=== PATIENT | male | born 1940 | race Caucasian/White ===

== ENCOUNTER 2017-07-01 21:36 | Inpatient (IN) | payer OTHER ==
[~2017-07-01] VITALS: Ht 177.8 cm; Wt 108.9 kg
--- NOTE | ~2017-07-01 | 2DMMODE ---
[facility] [address] [place] [address] 2 D/M-MODE ECHOCARDIOGRAM Name: NERY SHERIFF Anabell Room #: 315-P [facility] IN [facility]#: [id number] Admission: 07/02/17 Attend Phys: Benigno Santos MD Discharge: Date of : 38 Date of Service: 07/03/17 [facility] Report #: [id number] THIS REPORT FOR: //name// APPROVED REPORT Study performed: 07/03/2017 09:40:05 EXAM: Comprehensive 2D, Doppler, and color-flow Echocardiogram Patient Location: Bedside Room #: 315 Status: routine BSA: 2.21 BP: 173/88 mmHg Rhythm: Atrial Fibrillation Other Information Study Quality: Fair Indications Congestive Heart Failure COPD Atrial Fibrillation Hypertension/HDD HLP. 2D Dimensions LVEF(%): 56.77 (>50%) IVSd: 9.83 (7-11mm) LVOT Diam: 22.37 (18-24mm) LVDd: 43.27 mm PWd: 9.83 (7-11mm) Ascending Ao: 30.69 (22-36mm) LVDs: 30.50 (25-40mm) Aortic Root: 34.93 mm IVC: 29.00 mm Mae's LVEF: 56.77 % Aortic Valve AoV Peak Sukhjinder.: 1.05 m/s AO Peak Gr.: 4.41 mmHg Pulmonary Valve PV Peak Sukhjinder.: 0.81 m/s PV Peak Gr.: 2.62 mmHg Tricuspid Valve TR Peak Sukhjinder.: 3.99 m/s RAP Estimate: 15.00 mmHg TR Peak Gr.: 63.71 mmHg [facility] [address] [place] [address] 2 D/M-MODE ECHOCARDIOGRAM Name: NERY SHERIFF Room #: 315-P ADM IN [facility]#: [id number] Admission: 07/02/17 Attend Phys: Benigno Santos MD Discharge: Date of : 39 Date of Service: 07/03/17 1400 Report #: [id number] Pressure: 79.00 mmHg Left Ventricle The left ventricle is normal size. Flattened septum consistent with right ventricular pressure overload. There is normal left ventricular wall thickness. The left ventricular systolic function is normal. The left ventricular ejection fraction is within the normal range. LVEF is 55-60%. This study is not technically sufficient to allow evaluation of the LV diastolic function due to atrial fibrillation. Right Ventricle Right ventricle is dilated. Right ventricle is hypokinetic. Atria Left atrium is dilated. Right atrium is dilated. Aortic Valve The aortic valve is normal in structure. Aortic valve is calcified. No aortic regurgitation is present. There is no aortic valvular stenosis. Mitral Valve The mitral valve is normal in structure. There is mitral annular calcification. Mild mitral regurgitation. No evidence of mitral valve stenosis. Tricuspid Valve The tricuspid valve is normal in structure. There is no tricuspid valve stenosis. Mild to moderate tricuspid regurgitation. Severe pulmonary hypertension. Pulmonic Valve The pulmonary valve is normal in structure. There is no pulmonic valvular regurgitation. Great Vessels The aortic root is normal in size. The inferior vena cava is dilated with no inspiratory collapse. <Conclusion> The left ventricle is normal size. The left ventricular systolic function is normal. Right ventricle is dilated. Left atrium is dilated. [facility] [place] [address] [address] 2 D/M-MODE ECHOCARDIOGRAM Name: NERY SHERIFF Room #: 315-P ADM IN M.R.#: [id number] Admission: 07/02/17 Attend Phys: Benigno Santos MD Discharge: Date of : 39 Date of Service: 07/03/17 1400 Report #: [id number] Right atrium is dilated. There is no aortic valvular stenosis. Mild mitral regurgitation. Mild to moderate tricuspid regurgitation. Severe pulmonary hypertension. <ELECTRONICALLY SIGNED> By: Solomon Love MD 07/03/171399 99 99 Solomon Love MD /INF
--- NOTE | ~2017-07-01 | HC ---
[facility] [place] [address] CONSULTATION Name: NERY SHERIFF Room #: 315-P [facility] IN ..#: [id number] Admission: 07/02/17 Attend Phys: Benigno Santos MD Discharge: 07/10/17 Date of : 39 Report #: [id number] THIS REPORT FOR: //name// CC: Kamar Santos DATE OF SERVICE: 07/05/2017 NEPHROLOGY CONSULTATION ATTENDING PHYSICIAN: Dr. Gramajo REASON FOR CONSULTATION: Elevated creatinine. HISTORY OF PRESENT ILLNESS: Difficult patient, 77-year-old gentleman, who presented with shortness of breath, weakness and generalized pain, difficulty getting around. He was initially felt to have dehydration at the time of admission by the nurse practitioner. The attending physician felt on the other hand that he had congestive heart failure and fluid overload. He was initially treated with diuretics, also had a CAT scan with IV contrast dye. He did not diurese much, but after the contrast dye, his creatinine has risen from 1.3 up to 2.4. There is no prior knowledge of renal disease, although he did have an asymptomatic right renal arterial stent placed 9 years ago. PAST MEDICAL HISTORY: He has had previous coronary bypass, peripheral arterial disease and hypertension. He has had several lower extremity arterial vascular stents placed as well as having history of atrial fibrillation. MEDICATIONS: At time of admission included Uloric 80 mg daily, gabapentin 300 mg t.i.d., atorvastatin 40 mg daily, Pradaxa 75 mg b.i.d., calcium with vitamin D, vitamin B12, iron, aspirin 81 mg daily, fish oil, Bystolic 5 mg daily, potassium and torsemide 40 mg daily. FAMILY HISTORY: Noncontributory. SOCIAL HISTORY: Former smoker. Lives with significant other. REVIEW OF SYSTEMS: GENERAL: He has been feeling poorly. EYES: His vision is okay. ENT: Hearing okay. Swallows okay. Denies mouth ulcers. ENDOCRINE: No diabetes. RESPIRATORY: He does get very easily short winded. CARDIAC: No recent angina. He does have recurrent atrial fibrillation. GASTROINTESTINAL: Appetite is fair. [facility] [address] [place] [address] CONSULTATION Name: NERY SHERIFF Room #: 315-P [facility] IN [facility].#: [id number] Admission: 07/02/17 Attend Phys: Benigno Santos MD Discharge: 07/10/17 Date of : 39 Report #: [id number] GENITOURINARY: Has not had trouble with his stream. He has got Marroquin in now. NEUROLOGIC: Just generalized weakness. PHYSICAL EXAMINATION: GENERAL: This is a chronically ill-appearing gentleman. He is in pain with movement. SKIN: Unremarkable. SKELETAL: Nonobese. HEENT: Extraocular movements are full. Vision intact. No scleral icterus. Hearing intact. Mucous membranes slightly dry. NECK: Veins are flat. CHEST: Shows rhonchi at the bases. HEART: Distant and irregular. ABDOMEN: Soft and nontender. EXTREMITIES: Show trace peripheral edema. NEUROLOGIC: Shows generalized weakness. LABORATORY DATA: Sodium 129, potassium 3.8, chloride 94 and bicarbonate 24. BUN 39 and creatinine 2.4. ASSESSMENT AND PLAN: 1. Elevated creatinine. He likely has some dye nephropathy. His volume status is very difficult to determine. He has very severe pulmonary hypertension, obviously decreased renal perfusion on that basis. Medications are reviewed, I believe some gentle IV fluids are probably indicated here, although very complicated multifactorial case makes this very difficult to sort through. In any event, we will certainly follow him along hopefully to see some recovery. 2. Diffuse atherosclerosis with peripheral arterial disease. 3. Status post right renal arterial stent. 4. Severe pulmonary hypertension. 5. History of systemic hypertension. 6. Persistent atrial fibrillation, on anticoagulation. <ELECTRONICALLY SIGNED> By: Salazar Goodrich MD 07/11/17 1122 1220 2049 Salazar Goodrich MD /nt
--- NOTE | ~2017-07-01 | EKG ---
[address] [address] ELECTROCARDIOGRAM REPORT Name: NERY SHERIFF Room #: 315-P ADM IN M.R.#: [id number] Admission: 07/02/17 Attend Phys: Benigno Santos MD Discharge: Date of : 39 Report #: [id number] THIS REPORT FOR: //name// [facility] ED Test Date: 2017-07-01 Test Time: 21:40:24 Pat Name: NERY SHERIFF Department: Room: [facility] Gender: M Respiratory Support Technician: [id number] : 1940 Requested By: Judy Foster Order Number: [id number] MD: Trevin Ch Measurements Intervals [place] Rate: 81 P: [place]: QRS: 64 QRSD: 115 T: 25 QT: 384 QTc: 446 Interpretive Statements Atrial fibrillation Incomplete right bundle branch block Compared to ECG 08/30/2016 17:13:16 Early repolarization no longer present Electronically Signed On 07-02-2017 16:44:01 CDT by Trevin Ch [email or web address] <ELECTRONICALLY SIGNED> By: Trevin Ch MD 07/02/17 164 39 39 Trevin Ch MD /ROBINSON
--- NOTE | ~2017-07-01 | HC ---
[facility] [place] [address] CONSULTATION Name: NERY SHERIFF Room #: 315-P [facility] IN ..#: [id number] Admission: 07/02/17 Attend Phys: Benigno Santos MD Discharge: Date of : 39 Report #: [id number] THIS REPORT FOR: //name// CC: Kamar Santos DATE OF SERVICE: 07/05/2017 HISTORY OF PRESENT ILLNESS: The patient is a 77-year-old male admitted with generalized weakness, inability to eat much over the last 4-5 days, has just been drinking Sprite according to the family. He was noted to have multiple joint pains and significant proximal weakness with considerable assistance needed for functional mobility. He was seen by Neurology. He was thought to have multifactorial mobility problems with an MRI of the brain showing multiple old infarcts, frontal basal ganglia on the left and old right cerebellar. He also has a history of a neuropathy of unknown etiology. He has problems with multiple joint pains with possible gout and Internal Medicine is holding the colchicine and he has been started on prednisone. He is noted to have a CHF exacerbation and was noted to have lower extremity edema with Lasix being given. He also was stated to have some dehydration. He had an acute encephalopathy, which has improved/resolved. We are seeing him now in rehabilitation medicine consultation. 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 He does have a history of the peripheral neuropathy. He has had coronary artery bypass grafting x 3, chronic kidney disease stage 3, lumbar spinal stenosis, obstructive sleep apnea, restless legs syndrome, history tonic-clonic seizures. MEDICATIONS: Please see the full medication listing. ALLERGIES: No known drug allergies. FAMILY HISTORY: No family history of heart disease. REVIEW OF SYSTEMS: Did not offer any current complaints of chest pain, shortness of breath, abdominal pain. His main complaint is his joint pain including his wrists and his ankles. He notes that he is very weak. PHYSICAL EXAMINATION: GENERAL: A 77-year-old white male in no obvious distress. VITAL SIGNS: Temperature is 98.2, pulse 84, respirations 18, blood pressure 140/65. NEUROLOGIC: The patient is alert, will follow basic 1 step commands. Facies are symmetric. [address] [address] CONSULTATION Name: NERY SHERIFF Room #: 315-P [facility] IN ..#: [id number] Admission: 07/02/17 Attend Phys: Benigno Santos MD Discharge: Date of : 39 Report #: [id number] EXTREMITIES: He has functional range of motion of both upper extremities, but complains of pain with movement of his wrists. Lower extremities: He also has discomfort with movement of his ankles. No obvious erythema or warmth is noted, but he has definite discomfort with movement. Lower extremities are quite weak and he can only barely try to lift his legs up off the bed, but grade his strength at a 3, distally, he is probably more than 3+. Upper extremity strength is probably 3+ to 4-/5. He was max assist with bed mobility, mod assist, sit to stand, max assist to take one step to the commode. ASSESSMENT: A 77-year-old white male with the following problem list: 1. Multifactorial mobility deficits. 2. Idiopathic peripheral neuropathy. 3. Multi-joint inflammation/possible gouty arthritis. 4. 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 5. Acute on chronic diastolic congestive heart failure. 6. Acute renal insufficiency. 7. Permanent atrial fibrillation. 8. Acute encephalopathy, which has improved/resolved per notes. 9. Coronary artery disease with history of coronary artery bypass grafting. 10. Chronic obstructive pulmonary disease. PLAN: He is at a lower functional level currently. He is being treated for his joint pain with the prednisone and hopefully this will help. Insurance will need to be checked regarding rehab therapy issues. We will be glad to follow along with you. By: 1530 0735 Kilo Downs MD /
--- NOTE | ~2017-07-01 | EEG ---
[facility] [place] [address] ELECTROENCEPHALOGRAM Name: NERY SHERIFF Room #: 315-P [facility] IN M.R.#: [id number] Admission: 07/02/17 Attend Phys: Benigno Santos MD Discharge: 07/10/17 Date of : 39 Report #: [id number] THIS REPORT FOR: //name// CC: Kamar Santos DATE OF SERVICE: 07/04/2017 INTERPRETATION: This patient's EEG was done by placing the electrodes by standard 10-20 system of electrode placement. Both referential and sequential montages were used for recording. Background activity in this patient's EEG is about 8-9 Hz and 30 microvolt. This patient went to sleep that is associated with bilaterally symmetrical sleep spindle and vertex sharp waves. Photic stimulation is unremarkable. Throughout the record, the patient's EEG continued to demonstrate some intermixed theta range slowing on both sides. IMPRESSION: This is a moderately abnormal EEG because it continued to demonstrate intermixed theta range slowing on both sides. That is a nonspecific abnormality, which can occur with encephalopathy, effect of psychotropic medication, dementia, etc. Clinical correlation is recommended. Thank you very much for this referral. <ELECTRONICALLY SIGNED> By: Angel Gama MD 07/12/17 1416 0611 0722 Angel Gama MD /nt
[~2017-07-01 21:36] MED LIST: ADULT LOW DOSE81 MG; ADULT LOW DOSE81 MG PO; AMBIEN 10 MG TA10 MG PO; AMITRIPTYLINE H10 M1 PO; AMLODIPINE BESY10 MG PO; AMLODIPINE BESYL5 MG; APAP650 PO; ASPIR 8181 M1 PO; ATIVAN1 MG PO; B12INJ IM; BENGAY ULTRA S113 GM TOP; BISTOLIC PO; BYSTOLIC 5 MG5 M1 PO; BYSTOLIC10 MG PO; CALCIUM 500 +1 EAC4 OR; CALCIUM 600 +1 EA11 PO; CALCIUM 600 +1 EAC1 PO; CILOSTAZOL 100100 MG; COLACE100 MG PO; COLCHICINE 0.60.6 M1 OR; COLCHICINE0.6 MG PO; COUMADIN 1MG TAB1 M1 PO; COUMADIN 5 MG TA5 M1 PO; COUMADIN7.5 MG; CYMBALTA30 MG PO; DIGOXIN250 MCG; DULOXETINE HCL30 MG PO; FISH OIL 1,0001 EAC5 PO; FISH OIL 1,001000 M2 PO; FOSAMAX 70 MG T70 M1 PO; FOSAMAX 70 MG T70 MG PO; FUROSEMIDE 40 M40 M1; FUROSEMIDE 40 M40 M1 PO; IRON325 PO; KLOR-CON 1010 MEQ; LASIX 40 MG TAB40 M2 PO; LIPITOR10 MG PO; LIPITOR40 MG PO; MAG DELAY64 MG PO; MEDROLDOSEPACK; MILK OF MA2400 MG/10 PO; MULTI VITAMIN1 EACH PO; NEURONTIN 300300 M1; NEURONTIN 300300 M1 PO; NORCO 5-325 TA1 EACH PO; OMEPRAZOLE PO; OMEPRAZOLE20 M2 OR; POTASSIUM20 PO; PRADAXA150 MG PO; PRADAXA75 MG PO; PREDNISONE 5 MG5 M1 PO; PREVACID15 MG PO; PROTONIX 440 MG/VIA2 PO; QUINAPRIL 20 MG20 MG PO; QUINU5 PD PO; TIMOLOL GL0.5 %/5 M1 OTIC; TOPROL XL50 MG OR; TORSEMIDE20 MG PO; TRAMADOL 50 MG50 MG PO; ULORIC80 MG PO; UNICOMPLEX M TA1 TA1 PO; VITAMIN B-1100 M1 PO; VITAMINC500 PO; XALATAN2.5 ML OTIC; XANAX 0.25 MG0.25 MG PO; ZOFRAN ODT4 MG PO
[2017-07-01 21:38] VITALS: BP 127/88
[2017-07-01 22:14] LABS: HEMATOCRIT 38.4 % (42.0-52.0); HEMOGLOBIN 12.9 gm/dL (14.0-18.0); MCHC 33.6 g/dL (28.0-37.0); MCV 95.3 fL (80.0-100.0); PLATELET COUNT 161 thou/uL (150-400); RBC 4.03 mil/uL (4.50-6.00)
[2017-07-01 22:15] LABS: MANUAL DIFF YES
[2017-07-01 22:22] LABS: ANION GAP 9 mmol/L (7-16); BUN 20 mg/dL (7-18); CALCIUM 10.2 mg/dL (8.5-10.1); CHLORIDE 101 mmol/L (98-107); CO2 27 mmol/L (21-32); CREATININE 1.3 mg/dL (0.7-1.3); GLUCOSE 130 mg/dL (74-106); POTASSIUM 3.4 mmol/L (3.5-5.1); SODIUM 137 mmol/L (136-145)
[2017-07-01 22:29] LABS: APTT 33.8 Seconds (24.5-32.8); INR 1.3; PROTIME 13.4 Seconds (9.3-11.4)
[2017-07-01 22:31] LABS: TROPONIN-I < 0.04 ng/mL (<0.04-0.07)
[2017-07-01 22:46] LABS: ABSOLUTE NEUTROPHILS 9.7 thou/uL (1.4-8.2); ANISOCYTOSIS 2+; TOTAL CELL COUNT 100
[2017-07-02 01:12] LABS: URINE BILIRUBIN 1+ (Negative); URINE BLOOD NEGATIVE (Negative); URINE COLOR YELLOW; URINE GLUCOSE-RANDOM* NEGATIVE (Negative); URINE KETONES TRACE (Negative); URINE LEUKOCYTES-REFLEX NEGATIVE (Negative); URINE PROTEIN (DIPSTICK) 2+ (Negative)
[2017-07-02 01:19] LABS: ICTOTEST (BILI CONFIRMATORY) Positive (Negative); SQUAMOUS >10 Many /LPF (0-3)
[2017-07-02 01:20] LABS: AMORPHOUS PHOSPHATES Moderate /LPF (None Seen); CASTS None Seen /LPF (None Seen); CRYSTALS None Seen /LPF (None Seen); URINE RBC 3-10 Few /HPF (0-2); URINE WBC-REFLEX 0-5 Rare /HPF (0-5)
[2017-07-02 02:54] VITALS: BP 121/78
[2017-07-02 04:12] VITALS: BP 130/77
[2017-07-02 05:24] LABS: TSH 2.576 uIU/mL (0.358-3.740)
[2017-07-02 08:02] VITALS: BP 150/100
[2017-07-02 16:21] VITALS: BP 148/77
[2017-07-02 21:00] VITALS: BP 151/79
[2017-07-03] VITALS: BP 158/89
[2017-07-03 04:27] LABS: HEMATOCRIT 37.8 % (42.0-52.0); HEMOGLOBIN 12.7 gm/dL (14.0-18.0); MCH 32.1 pg (26.0-34.0); MCHC 33.6 g/dL (28.0-37.0); MCV 95.5 fL (80.0-100.0); RBC 3.96 mil/uL (4.50-6.00); RDW 19.3 % (10.5-14.5); WBC 9.9 thou/uL (4.0-11.0)
[2017-07-03 04:33] LABS: CALCIUM 9.1 mg/dL (8.5-10.1); POTASSIUM 3.7 mmol/L (3.5-5.1)
[2017-07-03 04:55] VITALS: BP 150/77
[2017-07-03 07:18] VITALS: BP 173/88
[2017-07-03 10:02] LABS: CHOLESTEROL 96 mg/dL (<200); HDL CHOLESTEROL 31 mg/dL (>40); LDL CHOLESTEROL 56 mg/dL (<100); TC:HDL 3.1 Ratio (Not establshd); TRIGLYCERIDE 48 mg/dL (<150); VLDL 10 mg/dL (<40)
[2017-07-03 16:15] VITALS: BP 126/63
[2017-07-03 20:50] VITALS: BP 122/58
[2017-07-04 05:00] VITALS: BP 137/67
[2017-07-04 06:51] LABS: HEMATOCRIT 34.1 % (42.0-52.0); HEMOGLOBIN 11.4 gm/dL (14.0-18.0); MCH 31.7 pg (26.0-34.0); MCHC 33.5 g/dL (28.0-37.0); MCV 94.7 fL (80.0-100.0); RBC 3.6 mil/uL (4.50-6.00); RDW 19.6 % (10.5-14.5); WBC 11.5 thou/uL (4.0-11.0)
[2017-07-04 07:18] LABS: ALBUMIN 2.6 g/dL (3.4-5.0); CALCIUM 8.2 mg/dL (8.5-10.1); CREATININE 1.9 mg/dL (0.7-1.3); MAGNESIUM 1.4 mg/dL (1.8-2.4); POTASSIUM 3.6 mmol/L (3.5-5.1); TOTAL BILIRUBIN 3.8 mg/dL (<0.1-1.0); TOTAL PROTEIN 6.6 g/dL (6.4-8.2)
[2017-07-04 08:00] LABS: URINE BILIRUBIN 1+ (Negative); URINE BLOOD 3+ (Negative); URINE COLOR YELLOW; URINE GLUCOSE-RANDOM* NEGATIVE (Negative); URINE KETONES NEGATIVE (Negative); URINE LEUKOCYTES-REFLEX TRACE (Negative); URINE PROTEIN (DIPSTICK) TRACE (Negative); URINE SPECIFIC GRAVITY 1.025 (1.003-1.035)
[2017-07-04 08:14] LABS: ICTOTEST (BILI CONFIRMATORY) Positive (Negative)
[2017-07-04 08:39] LABS: AMORPHOUS URATES Few /LPF (None Seen); CASTS None Seen /LPF (None Seen); SQUAMOUS None Seen /LPF (0-3); URINE WBC-REFLEX 0-5 Rare /HPF (0-5)
[2017-07-04 08:45] VITALS: BP 120/69
[2017-07-04 16:46] VITALS: BP 102/54
[2017-07-04 19:47] VITALS: BP 113/67
[2017-07-05 03:11] LABS: FREE T4 1.41 ng/dL (0.82-1.77)
[2017-07-05 04:08] LABS: CALCIUM 7.8 mg/dL (8.5-10.1); CREATININE 2.4 mg/dL (0.7-1.3); MAGNESIUM 1.5 mg/dL (1.8-2.4); POTASSIUM 3.8 mmol/L (3.5-5.1)
[2017-07-05 04:39] VITALS: BP 108/59
[2017-07-05 08:00] VITALS: BP 140/65
[2017-07-05 08:41] LABS: AMP/METHAMP Negative (Negative); BARBITURATES Negative (Negative); BENZODIAZEPINES POSITIVE (Negative); COCAINE Negative (Negative); METHADONE Negative (Negative); OPIATES Negative (Negative); PCP Negative (Negative); THC Negative (Negative)
[2017-07-05 17:12] VITALS: BP 114/57
[2017-07-05 19:24] VITALS: BP 111/54
[2017-07-06 06:08] LABS: CALCIUM 7.6 mg/dL (8.5-10.1); CREATININE 2.7 mg/dL (0.7-1.3); MAGNESIUM 2.1 mg/dL (1.8-2.4); PHOSPHORUS 3.8 mg/dL (2.5-4.9); POTASSIUM 3.5 mmol/L (3.5-5.1)
[2017-07-06 08:00] VITALS: BP 106/66
[2017-07-06 11:30] LABS: URINE CREATININE-RANDOM* 151.4 mg/dL
[2017-07-06 16:00] VITALS: BP 112/66
[2017-07-06 19:55] VITALS: BP 112/80
[2017-07-07 04:20] VITALS: BP 110/61
[2017-07-07 08:07] VITALS: BP 126/76
[2017-07-07 11:59] LABS: CALCIUM 8.6 mg/dL (8.5-10.1); CREATININE 2.6 mg/dL (0.7-1.3); POTASSIUM 3.7 mmol/L (3.5-5.1)
[2017-07-07 12:00] LABS: HEMATOCRIT 34.3 % (42.0-52.0); HEMOGLOBIN 11.4 gm/dL (14.0-18.0); MCH 31.2 pg (26.0-34.0); MCHC 33.1 g/dL (28.0-37.0); MCV 94.1 fL (80.0-100.0); RBC 3.64 mil/uL (4.50-6.00); RDW 19.6 % (10.5-14.5); WBC 9.7 thou/uL (4.0-11.0)
[2017-07-07 20:09] VITALS: BP 126/59
[2017-07-08 03:49] VITALS: BP 129/62
[2017-07-08 05:57] LABS: ALBUMIN 2.3 g/dL (3.4-5.0); CALCIUM 8.9 mg/dL (8.5-10.1); CREATININE 2.5 mg/dL (0.7-1.3); PHOSPHORUS 3.3 mg/dL (2.5-4.9); POTASSIUM 3.8 mmol/L (3.5-5.1)
[2017-07-08 08:33] VITALS: BP 135/72
[2017-07-08 15:39] VITALS: BP 127/65
[2017-07-08 19:46] VITALS: BP 133/55
[2017-07-09 03:58] VITALS: BP 148/48
[2017-07-09 06:26] LABS: ALBUMIN 2.3 g/dL (3.4-5.0); CALCIUM 9.1 mg/dL (8.5-10.1); POTASSIUM 3.6 mmol/L (3.5-5.1)
[2017-07-09 08:18] VITALS: BP 134/67
[2017-07-09 10:20] LABS: HEMATOCRIT 35.7 % (42.0-52.0); HEMOGLOBIN 11.9 gm/dL (14.0-18.0); MCH 31.4 pg (26.0-34.0); MCHC 33.3 g/dL (28.0-37.0); MCV 94.3 fL (80.0-100.0); RBC 3.79 mil/uL (4.50-6.00); RDW 19.8 % (10.5-14.5); WBC 10.6 thou/uL (4.0-11.0)
[2017-07-09 15:09] VITALS: BP 125/54
[2017-07-09 19:49] VITALS: BP 132/65
[2017-07-10 04:28] VITALS: BP 140/60
[2017-07-10 05:21] LABS: ALBUMIN 2.2 g/dL (3.4-5.0); CALCIUM 9.3 mg/dL (8.5-10.1); CREATININE 1.9 mg/dL (0.7-1.3); PHOSPHORUS 3.1 mg/dL (2.5-4.9)
[2017-07-10 08:02] VITALS: BP 138/72
[2017-07-10] MEDS ORDERED: CARDIZEM CD 18180 M3 PO (12:30)
[2017-07-10] MEDS ORDERED: PREDNISONE 10 M10 MG PO (12:34)
[2017-07-10 13:06] VITALS: BP 138/72
== END 2017-07-10 17:24 | DRG 682 ==
LOC: ER 21:36 → 3N 07-02 01:43 → EROBS 07-02 01:43 → 3N 07-02 02:56
PROVIDERS: Emergency Medicine; Hospitalist; Internal Medicine; Internal Medicine Nephrology; Nurse Practitioner Family; Psychiatry & Neurology Neurology
DX: N17.9 Acute kidney failure, unspecified (principal); G93.40 Encephalopathy, unspecified; I50.33 Acute on chronic diastolic (congestive) heart failure; I13.0 Hypertensive heart and chronic kidney disease with heart failure and stage 1 through stage 4 chronic kidney disease, or unspecified chronic kidney disease; I48.1 Persistent atrial fibrillation; E86.0 Dehydration; N18.3 Chronic kidney disease, stage 3 (moderate); I25.10 Atherosclerotic heart disease of native coronary artery without angina pectoris; N40.0 Benign prostatic hyperplasia without lower urinary tract symptoms; H40.9 Unspecified glaucoma; E78.5 Hyperlipidemia, unspecified; G47.33 Obstructive sleep apnea (adult) (pediatric); M19.90 Unspecified osteoarthritis, unspecified site; M81.0 Age-related osteoporosis without current pathological fracture; G62.9 Polyneuropathy, unspecified; G25.81 Restless legs syndrome; R68.81 Early satiety; I73.9 Peripheral vascular disease, unspecified; I27.2 Other secondary pulmonary hypertension; J44.9 Chronic obstructive pulmonary disease, unspecified; D72.829 Elevated white blood cell count, unspecified; E78.00 Pure hypercholesterolemia, unspecified; I71.4 Abdominal aortic aneurysm, without rupture; M10.9 Gout, unspecified; I08.1 Rheumatic disorders of both mitral and tricuspid valves; Z95.820 Peripheral vascular angioplasty status with implants and grafts; Z95.1 Presence of aortocoronary bypass graft; Z87.891 Personal history of nicotine dependence; Z86.73 Personal history of transient ischemic attack (TIA), and cerebral infarction without residual deficits; Z82.49 Family history of ischemic heart disease and other diseases of the circulatory system
CPT/HCPCS: 10096

== ENCOUNTER 2018-11-11 05:51 | Inpatient (IN) | payer OTHER ==
[~2018-11-11] VITALS: Ht 180.3 cm; Wt 86.2 kg
[~2018-11-11 05:51] MED LIST changes: +CARDIZEM CD 18180 M3 PO; +PREDNISONE 10 M10 MG PO
[2018-11-11 05:52] VITALS: BP 133/62
[2018-11-11 06:29] LABS: HEMATOCRIT 39.7 % (42.0-52.0); HEMOGLOBIN 13.4 gm/dL (14.0-18.0); MCH 30.5 pg (26.0-34.0); MCHC 33.7 g/dL (28.0-37.0); MCV 90.4 fL (80.0-100.0); PLATELET COUNT 165 thou/uL (150-400); RBC 4.39 mil/uL (4.50-6.00); RDW 17.8 % (10.5-14.5); WBC 7.2 thou/uL (4.0-11.0)
[2018-11-11 06:37] LABS: CALCIUM 10.4 mg/dL (8.5-10.1); CREATININE 2.9 mg/dL (0.7-1.3)
[2018-11-11 06:45] LABS: POTASSIUM 2.1 mmol/L (3.5-5.1)
[2018-11-11 06:46] LABS: ALBUMIN 3.3 g/dL (3.4-5.0); TOTAL BILIRUBIN 1.6 mg/dL (<0.1-1.0); TOTAL PROTEIN 8.1 g/dL (6.4-8.2); TROPONIN-I 0.07 ng/mL (<0.06)
[2018-11-11 07:10] LABS: ABSOLUTE NEUTROPHILS 5.8 thou/uL (1.4-8.2)
[2018-11-11 07:12] LABS: ANISOCYTOSIS 1+; LARGE PLATELETS RARE
[2018-11-11 07:42] LABS: URINE BILIRUBIN NEGATIVE (Negative); URINE BLOOD TRACE (Negative); URINE CLARITY CLEAR; URINE COLOR YELLOW; URINE GLUCOSE-RANDOM* NEGATIVE (Negative); URINE KETONES NEGATIVE (Negative); URINE NITRITE-REFLEX NEGATIVE (Negative); URINE PROTEIN (DIPSTICK) NEGATIVE (Negative); URINE UROBILINOGEN 0.2 E.U./dl (0.2-1.0)
[2018-11-11 07:43] LABS: URINE LEUKOCYTES-REFLEX NEGATIVE (Negative)
[2018-11-11 07:44] LABS: AMP/METHAMP Negative (Negative); BARBITURATES Negative (Negative); BENZODIAZEPINES Negative (Negative); COCAINE Negative (Negative); METHADONE Negative (Negative); OPIATES Negative (Negative); PCP Negative (Negative)
[2018-11-11 07:51] VITALS: BP 141/68
--- NOTE | 2018-11-11 08:32 | EKG ---
[address] [place] [address] ELECTROCARDIOGRAM REPORT Name: NERY SHERIFF Room #: 170-1 ADM IN M.R.#: [id number] Admission: 11/11/18 Attend Phys: Jam Arguelles MD Discharge: Date of : 39 Report #: [id number] THIS REPORT FOR: //name// [facility] ED Test Date: 2018-11-11 Test Time: 06:31:08 Pat Name: NERY SHERIFF Department: Room: 170 Gender: M Legislative Director: Anabell SIMMONS : 1940 Requested By: Yasmani Hunt Order Number: [id number] MD: Parker Goodwin Measurements Intervals [place] Rate: 55 P: [place]: QRS: 54 QRSD: 150 T: -31 QT: 447 QTc: 428 Interpretive Statements Atrial fibrillation Right bundle branch block Baseline wander in lead(s) V6 Compared to ECG 07/01/2017 21:40:24 Right bundle-branch block now present Electronically Signed On 11-11-2018 8:32:24 FITNESS CLUB MANAGER by Parker Goodwin [email or web address] <ELECTRONICALLY SIGNED> By: Parker Goodwin MD, [facility] 12831 0 0 Parker Goodwin MD, [facility] /EPI
[2018-11-11 10:16] LABS: CHOLESTEROL 106 mg/dL (<200); HDL CHOLESTEROL 24 mg/dL (>40); LDL CHOLESTEROL 63 mg/dL (<100); TC:HDL 4.4 Ratio (Not establshd); TRIGLYCERIDE 98 mg/dL (<150); VLDL 20 mg/dL (<40)
[2018-11-11 10:21] VITALS: BP 117/69
[2018-11-11 10:42] LABS: TSH 1.547 uIU/mL (0.358-3.740)
[2018-11-11 11:22] LABS: FOLIC ACID 27.4 ng/mL (8.6-58.9)
--- NOTE | 2018-11-11 13:00 | NUR ---
PT ADMITTED RELATED TO DIARRHEA, DEHYDRATION, HYPONA, HYPOK. CM REVIEWED CHART AND SPOKE WITH CARE TEAM. CM MET WITH PT AT BEDSIDE THIS DAY. PT IS A&O X4. CM ROLE INTRODUCED. PT INDICATED HE LIVES IN A HOUSE WITH HIS SPOUSE WITH NO STEPS TO ENTER AND NO STEPS INSIDE. PT INDICATED HE HAD USED A FWW TO ASSIST WITH MOBILITY. PT INDICATED HE HAD HOME HEALTH BUT COULDN'T RECALL PROVIDER. PT INDICATED HE HAD GONE TO [facility] FOR POST [facility]UTE CARE STAY LAST YEAR. PT INDICATED HE ANTIPCATES RETURNING HOME ONCE MEDICALLY STABLE. CM TO FOLLOW INDICATED WITH DC PLANNING.
[2018-11-11 16:43] LABS: % SATURATION 37 % (20-39); IRON 88 ug/dL (65-175); TIBC 239 ug/dL (250-450)
[2018-11-11 17:38] VITALS: BP 127/46
[2018-11-11 20:22] VITALS: BP 112/51
[2018-11-11 22:43] LABS: POTASSIUM 2.8 mmol/L (3.5-5.1)
[2018-11-12 00:06] LABS: HAV IgM AB (ANTI-HAV IgM) Negative (Negative); HEPATITIS B SURFACE AG Negative (Negative); HEPATITIS C VIRUS AB 0.2 (0.0-0.9)
[2018-11-12 00:46] VITALS: BP 120/58
[2018-11-12 02:08] LABS: IgG 1313 mg/dL (700-1600)
[2018-11-12 04:25] VITALS: BP 108/75
[2018-11-12 07:07] LABS: HAV IgM AB (ANTI-HAV IgM) Negative (Negative); HEPATITIS B SURFACE AG Negative (Negative); HEPATITIS C VIRUS AB 0.1 (0.0-0.9)
[2018-11-12 07:25] LABS: ABSOLUTE NEUTROPHILS 3.7 thou/uL (1.4-8.2); BASOPHILS 1.1 % (0.0-2.0); EOSINOPHILS 3.8 % (0.0-3.0); HEMATOCRIT 31.7 % (42.0-52.0); HEMOGLOBIN 10.8 gm/dL (14.0-18.0); LYMPHOCYTES 9.1 % (24.0-44.0); MCH 30.2 pg (26.0-34.0); MCHC 33.9 g/dL (28.0-37.0); MCV 89.3 fL (80.0-100.0); MONOCYTES 6.5 % (1.0-8.0); PLATELET COUNT 105 thou/uL (150-400); POLYS 79.5 % (36.0-66.0); RBC 3.55 mil/uL (4.50-6.00); RDW 17.4 % (10.5-14.5); WBC 4.7 thou/uL (4.0-11.0)
[2018-11-12 07:40] VITALS: BP 116/44
[2018-11-12 07:44] LABS: ALBUMIN 2.7 g/dL (3.4-5.0); CALCIUM 9.4 mg/dL (8.5-10.1); CREATININE 1.9 mg/dL (0.7-1.3); MAGNESIUM 1.9 mg/dL (1.8-2.4); POTASSIUM 3.1 mmol/L (3.5-5.1); TOTAL BILIRUBIN 1.5 mg/dL (<0.1-1.0); TOTAL PROTEIN 6.6 g/dL (6.4-8.2); TROPONIN-I 0.06 ng/mL (<0.06)
[2018-11-12 13:47] VITALS: BP 115/41
--- NOTE | 2018-11-12 17:55 | NUR ---
PT STABLE THROUGHOUT SHIFT. PT HAD NO COMPLAINTS. PT RESTING COMFORTABLY, WILL CONTINUE TO MONITOR.
--- NOTE | 2018-11-12 18:06 | NUR ---
PT REQUESTED SLEEP MED. FOR TONIGHT WELL TO RESTART XARELTO. DR. ASHRAF PUT IN NURSING NOTE THAT XARELTO CAN BE RESTARTED WHEN GI OK'S. EXPLAINED TO PT. ABOUT XARELTO, SLEEP MED ORDER ENTERED.
[2018-11-12 19:51] VITALS: BP 117/51
[2018-11-13 03:06] VITALS: BP 151/70
[2018-11-13 05:30] LABS: HEMATOCRIT 31.9 % (42.0-52.0); HEMOGLOBIN 10.8 gm/dL (14.0-18.0); MCH 30.2 pg (26.0-34.0); MCHC 33.7 g/dL (28.0-37.0); MCV 89.8 fL (80.0-100.0); RBC 3.56 mil/uL (4.50-6.00); RDW 17.2 % (10.5-14.5); WBC 4.6 thou/uL (4.0-11.0)
[2018-11-13 05:56] LABS: ALBUMIN 2.9 g/dL (3.4-5.0); CALCIUM 10.2 mg/dL (8.5-10.1); CREATININE 1.7 mg/dL (0.7-1.3); MAGNESIUM 1.7 mg/dL (1.8-2.4); TOTAL BILIRUBIN 1.6 mg/dL (<0.1-1.0); TOTAL PROTEIN 7.3 g/dL (6.4-8.2)
[2018-11-13 05:57] LABS: POTASSIUM 4.1 mmol/L (3.5-5.1)
--- NOTE | 2018-11-13 07:45 | NUR ---
progress pt alert oriented but has moments of confusion, pt's has not slept in a few days, but is aware of his situation. tele intact, reading bbb,sr vss, denies pain. continue to monitor
[2018-11-13 08:15] VITALS: BP 129/62
[2018-11-13 11:06] LABS: ANA INTERPRETATION Negative (Negative)
[2018-11-13 12:08] LABS: CERULOPLASMIN 34.9 mg/dL (16.0-31.0)
[2018-11-13] MEDS ORDERED: MAGNESIUM400 MG PO (12:17)
[2018-11-13] MEDS ORDERED: NEURONTIN 300300 M1 PO (12:17)
[2018-11-13] MEDS ORDERED: MELATONIN5 M1 PO (12:17)
[2018-11-13] MEDS ORDERED: DEXAMETHASONE1 MG PO (12:17)
--- NOTE | 2018-11-13 12:49 | NUR ---
dp sent referral to HCEmma Sawyer, patient likely to dc today. NOLVIA will follow up with MONI Sawyer.
[2018-11-13 13:09] LABS: MITOCHONDRIAL ANTIBODY 14.8 Units (0.0-20.0)
--- NOTE | 2018-11-13 13:49 | NUR ---
PHYSICIAN INDICATED THAT PT COULD BENEFIT FROM POST ACUTE CARE STAY. CM MET WITH PT AND SPOUSE AT BEDSIDE AND THEY WANT REFERRAL SENT TO [facility] FOR REVIEW FOR POSSIBLE ADMISSION TODAY. DC ASSOCIATE FINANCIAL ANALYST TO FAX REFERRAL. AWAITING RESPOSE AND AUTH.
[2018-11-13 14:14] VITALS: BP 136/64
--- NOTE | 2018-11-13 14:21 | 2DMMODE ---
[facility] [address] [place] [address] 2 D/M-MODE ECHOCARDIOGRAM Name: NERY SHERIFF Room #: 461-P ADM IN M.R.#: [id number] Admission: 11/11/18 Attend Phys: Jam Arguelles MD Discharge: Date of : 39 Date of Service: 11/13/18 1420 Report #: [id number] THIS REPORT FOR: //name// APPROVED REPORT Study performed: 11/13/2018 12:41:07 EXAM: Comprehensive 2D, Doppler, and color-flow Echocardiogram Patient Location: Echo lab Room #: 461 Status: routine BSA: 2.06 HR: 62 bpm BP: 129/62 mmHg Rhythm: Atrial Fibrillation Other Information Study Quality: Adequate Indications Atrial Fibrillation Hx: CABG, Afib, HTN, COPD, PAD. 2D Dimensions RVDd: 48.77 mm IVSd: 11.03 (7-11mm) LVOT Diam: 23.38 (18-24mm) LVDd: 42.74 mm PWd: 11.37 (7-11mm) LVDs: 29.91 (25-40mm) Aortic Root: 42.99 mm Volumes Left Atrial Volume (Systole) Single Plane 4CH: 102.86 mL Single Plane 2CH: 115.10 mL LA ESV Index: 55.00 mL/m2 Aortic Valve AoV Peak Sukhjinder.: 0.93 m/s AO Peak Gr.: 3.46 mmHg LVOT Max P.61 mmHg LVOT Max V: 0.63 m/s SHANTEL Vmax: 2.92 cm2 Mitral Valve E/A Ratio: 2.0 MV Decel. Time: 122.51 ms [facility] [address] [address] 2 D/M-MODE ECHOCARDIOGRAM Name: NERY SHERIFF Room #: 461-P [facility] IN [facility]#: [id number] Admission: 11/11/18 Attend Phys: Jam Arguelles MD Discharge: Date of : 39 Date of Service: 11/13/18 1420 Report #: [id number] MV E Max Sukhjinder.: 1.29 m/s MV A Sukhjinder.: 0.64 m/s MV PHT: 35.53 ms IVRT: 50.75 ms Pulmonary Valve PV Peak Sukhjinder.: 0.66 m/s PV Peak Gr.: 1.75 mmHg Pulmonary Vein P Vein S: 0.67 m/s P Vein D: 0.25 m/s P Vein S/D Ratio: 2.68 Tricuspid Valve TR Peak Sukhjinder.: 4.24 m/s RAP Estimate: 15.00 mmHg TR Peak Gr.: 71.90 mmHg PA Pressure: 87.00 mmHg Left Ventricle The left ventricle is normal size. There is normal LV segmental wall motion. There is normal left ventricular wall thickness. Left ventricular systolic function is normal. LVEF is 60-65%. Right Ventricle Right ventricle is dilated. Right ventricle is mildly hypokinetic. Atria Left atrium is severely dilated. Right atrium is severely dilated. Aortic Valve Aortic valve leaflets are mildly thickened. No aortic regurgitation is present. There is no aortic valvular stenosis. Mitral Valve Mitral valve leaflets are thickened and calcified. Moderate mitral annular calcification. Mild to moderate mitral regurgitation. No evidence of mitral valve stenosis. Tricuspid Valve The tricuspid valve is normal in structure. Moderate to severe tricuspid regurgitation. Estimated PAP is 85mmHg. Pulmonic Valve The pulmonary valve is normal in structure. Trace pulmonic [facility] [address] [place] [address] 2 D/M-MODE ECHOCARDIOGRAM Name: NERY SHERIFF Room #: 461-P ADM IN M.R.#: [id number] Admission: 11/11/18 Attend Phys: Jam Arguelles MD Discharge: Date of : 39 Date of Service: 11/13/18 1420 Report #: [id number] regurgitation. Great Vessels Aortic root is dilated at 4.2cm. Ascending aorta is not well visualized. IVC is dilated and collapses <50% with inspiration. Pericardium There is no pericardial effusion. <Conclusion> The left ventricle is normal size. LVEF is 60-65%. Right ventricle is dilated. Right ventricle is mildly hypokinetic. Left atrium is severely dilated. Right atrium is severely dilated. Aortic valve leaflets are mildly thickened. Mitral valve leaflets are thickened and calcified. Moderate mitral annular calcification. Mild to moderate mitral regurgitation. The tricuspid valve is normal in structure. Moderate to severe tricuspid regurgitation. Estimated PAP is 85mmHg. The pulmonary valve is normal in structure. Trace pulmonic regurgitation. There is no pericardial effusion. <ELECTRONICALLY SIGNED> By: Toni Ewing MD 11/13/18 1420 142 142 Toni Ewing MD /INF
--- NOTE | 2018-11-13 15:30 | NUR ---
PT STABLE THROUGHOUT SHIFT. PT HAD NO CO,PLAINTS. POSSIBLE DISCHARGE TOMORROW.
--- NOTE | 2018-11-13 16:23 | NUR ---
AWAITING INSURANCE FOR PT TO GO [facility],
[2018-11-13 19:38] VITALS: BP 148/71
[2018-11-14 03:44] VITALS: BP 140/75
--- NOTE | 2018-11-14 04:39 | NUR ---
ASSUMED CARE AT START OF SHIFT PT CONFUSED TO TIME AND SITUATION, BED ALARM ON FOR SAFETY . PT HAD 2 EPISODE OF STOOL AND URIINE INCONTINENT. ABLE TO USE URINAL X2. IV FLUIDS INFUSING WELL, SECONDARY SCHOOL REGISTRAR SHOWS AFIB . WILL CONTINUE WITH CURRENT PLAN OF CARE.
[2018-11-14 07:17] LABS: DIRECT BILIRUBIN 0.5 mg/dL (<0.1-0.3); TOTAL BILIRUBIN 1.4 mg/dL (<0.1-1.0); TOTAL PROTEIN 6.7 g/dL (6.4-8.2)
[2018-11-14 08:22] VITALS: BP 136/65
--- NOTE | 2018-11-14 08:42 | EKG ---
[address] [address] ELECTROCARDIOGRAM REPORT Name: NERY SHERIFF Room #: 461-P ADM IN M.R.#: [id number] Admission: 11/11/18 Attend Phys: Jam Arguelles MD Discharge: Date of : 39 Report #: [id number] THIS REPORT FOR: //name// [facility] Test Date: 2018-11-14 Test Time: 07:21:51 Pat Name: NERY SHERIFF Department: Room: 461 P Gender: M Adjunct Trainer: SRINIVAS : 1940 Requested By: Sharita Headley Order Number: [id number] MD: Parker Goodwin Measurements Intervals [place] Rate: 73 P: [place]: QRS: 44 QRSD: 127 T: 23 QT: 499 QTc: 550 Interpretive Statements Atrial fibrillation Right ventricular conduction delay Artifact in lead(s) Compared to ECG 11/11/2018 06:31:08 No significant changes Electronically Signed On 11-14-2018 8:41:54 AUDIOLOGY ASSISTANT by Parker Goodwin [email or web address] <ELECTRONICALLY SIGNED> By: Parker Goodwin MD, [facility] 11/14/18 0841 0 0 Parker Goodwin MD, [facility] /EPI
--- NOTE | 2018-11-14 15:14 | NUR ---
CM CALLED DOLORES IN [facility] AT [facility] AND SHE INDICATED THAT WE ARE STILL WAITING FOR AUTH FROM [facility]. CM SPOKE WITH PT'S SON UMA AND NOTIFIED HIM WELL. CM TO FOLLOW INDICATED WITH DC PLANNING.
[2018-11-14 15:51] VITALS: BP 150/64
[2018-11-14 19:25] VITALS: BP 143/73
--- NOTE | 2018-11-14 20:21 | NUR ---
ASSUMED CARE OF PT AT APPROX 0700. PT IS ALERT AND ORIENTED TO SELF AND PLACE. FORGETFUL BUT IS EASILY REORIENTED. DENIES PAIN AND SOA. PT IS SUPPOSED TO BE DC TODAY AND IS AWARE AND VERY ANXIOUS FOR DC. ASSESSMENT CHARTED. UPDATED ON POC. STILL WAITING ON INSURANCE AUTH FOR DC. PT AND AND SON HAVE BEEN UPDATD AND ALL COMMNICATE UNDERSTANDING. PT MAKING GOOD PROGRESS TOWARDS DC GOALS. NO NEW CONCERNS.
[2018-11-15 03:43] VITALS: BP 143/70
--- NOTE | 2018-11-15 04:47 | NUR ---
CONFUSED. DOES NOT KNOW HOW TO USE CALL LIGHT. OCCASIONALLY CALLS OUT TO STAFF FOR ASSIST WITH URINAL. URINATED LARGE AMOUNT OF URINE ON FLOOR WITH AN ATTEMPT TO GET OUT OF BED WITHOUT ASSIST. SIDE RAILS UP X 4. BED ALARM ON. ROOM NEAR NURSES STATION. TOOK MEDS WITHOUT DIFFICULTY. PLAN IS TO DISCHARGE TO REHAB WHEN POSSIBLE. DENIES PAIN.
[2018-11-15 08:39] VITALS: BP 165/77
[2018-11-15 11:52] LABS: ALBUMIN 2.9 g/dL (3.4-5.0); DIRECT BILIRUBIN 0.4 mg/dL (<0.1-0.3); TOTAL BILIRUBIN 1.2 mg/dL (<0.1-1.0); TOTAL PROTEIN 6.8 g/dL (6.4-8.2)
--- NOTE | 2018-11-15 13:33 | NUR ---
adriana called and spoke with geo with [facility] on auth for snf/ [facility] of kathrinood " there is new process that is supposed to be faster and the facility should get an automated answer after questions are answer. this was started yesterday and will send it for expedited determination."/geo. will cont following as needed for dc needs.
--- NOTE | 2018-11-15 14:31 | NUR ---
CM CALLED [facility] AND THEY HAVE RECIEVED AUTH FOR PT TO ADMIT THERE TODAY. CM REQUESTED CHART COPY. PT AND FAMILY AWARE AND AGREEABLE. ORDERS TO BE FAXED TO FACILY AND REPORT TO BE CALLED TO .
== END 2018-11-15 15:42 | DRG 682 ==
LOC: ER 05:51 → 4W 07:07 → EROBS 07:07 → 4W 10:29
PROVIDERS: Emergency Medicine; Hospitalist; Internal Medicine Gastroenterology; Nurse Practitioner; ADMIT Internal Medicine
DX: N17.9 Acute kidney failure, unspecified (principal); E43 Unspecified severe protein-calorie malnutrition; E87.1 Hypo-osmolality and hyponatremia; I77.4 Celiac artery compression syndrome; I13.0 Hypertensive heart and chronic kidney disease with heart failure and stage 1 through stage 4 chronic kidney disease, or unspecified chronic kidney disease; K52.9 Noninfective gastroenteritis and colitis, unspecified; I50.9 Heart failure, unspecified; N18.3 Chronic kidney disease, stage 3 (moderate); N40.0 Benign prostatic hyperplasia without lower urinary tract symptoms; H40.9 Unspecified glaucoma; E78.5 Hyperlipidemia, unspecified; G47.33 Obstructive sleep apnea (adult) (pediatric); M19.90 Unspecified osteoarthritis, unspecified site; M81.0 Age-related osteoporosis without current pathological fracture; G62.9 Polyneuropathy, unspecified; G25.81 Restless legs syndrome; M10.9 Gout, unspecified; I25.10 Atherosclerotic heart disease of native coronary artery without angina pectoris; S09.90XA Unspecified injury of head, initial encounter; I73.9 Peripheral vascular disease, unspecified; E78.00 Pure hypercholesterolemia, unspecified; I71.4 Abdominal aortic aneurysm, without rupture; E83.42 Hypomagnesemia; R74.0 Nonspecific elevation of levels of transaminase and lactic acid dehydrogenase [LDH]; I48.0 Paroxysmal atrial fibrillation; I65.29 Occlusion and stenosis of unspecified carotid artery; R29.6 Repeated falls; T50.4X5A Adverse effect of drugs affecting uric acid metabolism, initial encounter; E86.0 Dehydration; E87.6 Hypokalemia; Z95.1 Presence of aortocoronary bypass graft; Z82.49 Family history of ischemic heart disease and other diseases of the circulatory system; Z87.891 Personal history of nicotine dependence; W18.39XA Other fall on same level, initial encounter; Y93.89 Activity, other specified; Y92.89 Other specified places as the place of occurrence of the external cause; Y99.8 Other external cause status; Z95.5 Presence of coronary angioplasty implant and graft; Z98.49 Cataract extraction status, unspecified eye; Z79.01 Long term (current) use of anticoagulants; Z28.21 Immunization not carried out because of patient refusal; Z68.26 Body mass index [BMI] 26.0-26.9, adult
CPT/HCPCS: 10045

== ENCOUNTER 2019-04-09 10:40 | Inpatient (IN) | payer OTHER ==
[~2019-04-09] VITALS: Ht 180.3 cm; Wt 91.5 kg
--- NOTE | ~2019-04-09 | O ---
[facility] [place] [address] OPERATIVE REPORT Name: NERY SHERIFF Room #: 360-P [facility] IN .R.#: [id number] Admission: 04/09/19 ������������������ Attend Phys: Fede Hoffman Discharge: ������������������ Date of : 39 Report #: [id number] THIS REPORT FOR: //name// CC: Kamar Hoffman DATE OF SERVICE: 04/11/2019 PREOPERATIVE DIAGNOSIS: Displaced right femoral neck fracture. POSTOPERATIVE DIAGNOSIS: Displaced right femoral neck fracture. PROCEDURE: Right hip hemiarthroplasty. SURGEON: Hussain Matson MD ANESTHESIA: General endotracheal. IMPLANTS: Pink and Nephew size 12 Conquest cemented stem, size 55+8 cobalt chrome head. ESTIMATED BLOOD LOSS: 50 mL. COMPLICATIONS: None. SPECIMENS: None. CONDITION UPON LEAVING THE OPERATING ROOM: Stable. INDICATIONS FOR PROCEDURE: The patient is a 78-year-old gentleman who fell at home and sustained a right femoral neck fracture. After discussion with him, he elected for hemiarthroplasty. DESCRIPTION OF PROCEDURE: Risks, benefits, alternatives, complications were discussed in detail with the patient including but not limited to risk of anesthesia, risk of damage to nerves, arteries, blood vessels, risk for infection, bleeding, risk for leg length discrepancy, instability and need for reoperation. Informed consent was obtained from the patient. The right hip was appropriately marked in the preoperative holding area and given preoperative antibiotics. He was taken to the operating room and placed in supine position on operating room table. General anesthesia was induced without complication. He was then placed in left lateral decubitus position, with the right hip uppermost. Right hip and lower extremity were prepped and draped in normal sterile fashion. Timeout was performed properly identifying the patient and procedure as well as the instrumentation and implants. All in [facility] [address] [place] [address] OPERATIVE REPORT Name: NERY SHERIFF Room #: 360-P [facility] IN M.R.#: [id number] Admission: 04/09/19 ������������������ Attend Phys: Fede Hoffman Discharge: ������������������ Date of : 39 Report #: [id number] the operating room were in agreement. A standard posterior approach to the hip was made with a 10 blade through the skin. Dissection was taken down to fascia with Bovie cautery. Mckeon elevator was used to clean the fascia. A fresh #10 blade was used to make a fascial incision. This was taken proximally and distally with curved Morales scissor. Charnley retractor was placed. Trochanteric bursa was taken down with Bovie. Piriformis tendon was identified, tagged and taken down with Bovie. Short external rotators were also taken down with Bovie. Capsulotomy was made and capsule ends were tagged for later repair. There was an obvious femoral neck fracture. Femoral neck head was used to clean up the fracture edges. The femoral head was removed, it was sized, found to be a size 65, so a 65 size placed in the acetabulum and found to have a good fit. Attention was then turned to the femur. It was reamed and broached up to size 14, at which point, the size 14 broach was stable, was trialed with a standard offset neck and a 65+0 head, which was reduced, taken through a range of motion, found to be stable, found to be short on the right compared to the left. It was felt that could be made up for with final implant. ____ 12 Conquest stem was cemented in place using standard cementation technique. After cement cured, this was trialed with 55 head with a +4 and then a + 8 neck. The +8 neck had a better leg length equality. The hip was dislocated. The trial head was removed. The final size 55 + 8 [place] chrome unipolar head was placed. Hip was reduced, taken through range of motion, found to be stable, found to have equal leg lengths. The wound was thoroughly irrigated. A periarticular injection consisting of morphine, ropivacaine, epinephrine, Toradol was placed around the hip joint capsule, vancomycin was placed deep in the capsule. The piriformis and capsule were repaired with 0 FiberWire. The fascia was closed with 0 Vicryl, skin was closed with 2-0 Vicryl, 3-0 Monocryl. Dermabond and a SIXTO dressing were applied. The patient tolerated this procedure well and went to recovery room under the care of Anesthesia postoperatively. ��������������������������������������������� ���������������������������������������� By: ��������������������������������������������� 1310 1800 Hussain Matson MD /marta
--- NOTE | ~2019-04-09 | HC ---
[facility] [address] [address] [address] CONSULTATION Name: NERY SHERIFF Room #: 423-1 ADM IN M.R.#: [id number] Admission: 04/09/19 ������������������ Attend Phys: Fede Hoffman Discharge: ������������������ Date of : 39 Report #: [id number] THIS REPORT FOR: //name// CC: Kamar Hoffman DATE OF SERVICE: 04/09/2019 REASON FOR CONSULTATION: Right hip fracture. HISTORY OF PRESENT ILLNESS: The patient is a 78-year-old gentleman who fell on the night of 04/07. EMS was called and helped him up. He is having right hip pain when he tries to move, and he came to the hospital today because of an inability to ambulate and hip pain. PAST MEDICAL HISTORY: Significant for AFib, acute kidney injury, altered mental status, anemia, CHF, dehydration, diarrhea, elevated LFTs, ground level fall. Gout, GI bleed, hypokalemia. ALLERGIES: No known drug allergies. MEDICATIONS: Have been reviewed and are on the chart. SOCIAL HISTORY: Lives at home with his and is a former smoker. PHYSICAL EXAMINATION GENERAL: This is a well-developed, well-nourished male, in no acute distress. He is alert and oriented, pleasant, cooperative. EXTREMITIES: Examination of the right lower extremity shows him to have pain with passive range of motion of the right hip. SKIN: Intact. NEUROLOGIC: Intact distally. X-RAY EXAMINATION: AP and lateral of the right hip shows him to have a mildly varus impacted femoral neck fracture. ASSESSMENT: Right varus impacted femoral neck fracture. PLAN: I discussed treatment options with him today. We are recommending a hemiarthroplasty. I have him on the schedule tomorrow afternoon around 12 or 12:[address] Canales to perform the surgery. Risks, benefits, alternatives, complications were discussed in detail. He is understanding and wished to proceed. [facility] [address] [place] [address] CONSULTATION Name: NERY SHERIFF Room #: 423-1 ADM IN [facility].#: [id number] Admission: 04/09/19 ������������������ Attend Phys: Fede Hoffman Discharge: ������������������ Date of : 39 Report #: [id number] Thank you for allowing us to participate in the care of the patient. ��������������������������������������������� ���������������������������������������� By: ��������������������������������������������� 1650 1141 Hussain Matson MD /nt
[2019-04-09 10:40] VITALS: BP 133/68
[~2019-04-09 10:40] MED LIST changes: +DEXAMETHASONE1 MG PO; +MAGNESIUM400 MG PO; +MELATONIN5 M1 PO
[2019-04-09 12:58] LABS: URINE BILIRUBIN NEGATIVE (Negative); URINE BLOOD TRACE (Negative); URINE CLARITY CLEAR; URINE COLOR YELLOW; URINE GLUCOSE-RANDOM* NEGATIVE (Negative); URINE KETONES NEGATIVE (Negative); URINE LEUKOCYTES-REFLEX NEGATIVE (Negative); URINE NITRITE-REFLEX NEGATIVE (Negative); URINE PROTEIN (DIPSTICK) TRACE (Negative); URINE SPECIFIC GRAVITY <= 1.005 (1.005-1.035); URINE UROBILINOGEN 0.2 E.U./dl (0.2-1.0)
[2019-04-09 13:19] LABS: ABSOLUTE NEUTROPHILS 12.1 thou/uL (1.4-8.2); BASOPHILS 0.4 % (0.0-2.0); EOSINOPHILS 0.4 % (0.0-3.0); HEMATOCRIT 35.4 % (42.0-52.0); HEMOGLOBIN 11.5 gm/dL (14.0-18.0); LYMPHOCYTES 3.8 % (24.0-44.0); MCH 28.4 pg (26.0-34.0); MCHC 32.5 g/dL (28.0-37.0); MCV 87.3 fL (80.0-100.0); MONOCYTES 3.7 % (1.0-8.0); PLATELET COUNT 184 thou/uL (150-400); POLYS 91.7 % (36.0-66.0); RBC 4.05 mil/uL (4.50-6.00); RDW 16.9 % (10.5-14.5); WBC 13.2 thou/uL (4.0-11.0)
[2019-04-09 13:23] VITALS: BP 121/75
[2019-04-09 13:28] LABS: CALCIUM 10.1 mg/dL (8.5-10.1); CREATININE 1.7 mg/dL (0.7-1.3); POTASSIUM 3.3 mmol/L (3.5-5.1)
[2019-04-09 15:00] VITALS: BP 123/61
--- NOTE | 2019-04-09 16:25 | EKG ---
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: KKROCKY : 1940 Requested By: Judy Foster Order Number: [id number] MD: Trevin Ch Measurements Intervals [place] Rate: 87 P: ID: QRS: 5 QRSD: 158 T: -29 QT: 402 QTc: 484 Interpretive Statements Atrial fibrillation Right bundle branch block Compared to ECG 11/14/2018 07:21:51 Right bundle-branch block now present Electronically Signed On 04-09-2019 16:25:14 CDT by Trevin Ch [email or web address] ��������������������������������������������� <ELECTRONICALLY SIGNED> ���������������������������������������� By: Trevin Ch MD ��������������������������������������������� 04/09/19 1625 1332 133 Trevin Ch MD /ROBINSON
--- NOTE | 2019-04-09 18:59 | NUR ---
ASSUMED CARE AT 1400, SHIFT ASSESSMENT DONE, MEDS GIVEN, VSS. ADMISSION DONE. IV FLUIDS STARTED. DOES NOT REPORT ANY PAIN WHEN NOT MOVING. WILL BE NPO FROM MIDNIGHT AND SURGERY IS SCHEDULED FOR TOMORROW AT 1230.
[2019-04-09 20:02] VITALS: BP 128/70
--- NOTE | 2019-04-10 04:30 | NUR ---
Assumed pt care @ 1900. Pt A/OX4,VSS.C/o pain to right hip especially with movement but declines need for pain meds.Voiding without any difficulties. IVF infusing via RFA without any problems. Pt reported he gets eye gtts at [facility],order obtained from Judi ATWOOD and initiated. Resting quietly without any distress noted at this time,O2@2L/NC.Bed alarm on,call light/personal items within reach.
[2019-04-10 05:13] VITALS: BP 134/59
[2019-04-10 06:07] LABS: ALBUMIN 2.4 g/dL (3.4-5.0); CALCIUM 9.1 mg/dL (8.5-10.1); CREATININE 1.4 mg/dL (0.7-1.3); PHOSPHORUS 3.2 mg/dL (2.5-4.9); TROPONIN-I 0.17 ng/mL (<0.06)
[2019-04-10 06:09] LABS: POTASSIUM 2.9 mmol/L (3.5-5.1)
[2019-04-10 07:46] VITALS: BP 116/59
--- NOTE | 2019-04-10 09:17 | 2DMMODE ---
[facility] [address] [place] [address] 2 D/M-MODE ECHOCARDIOGRAM Name: NREY SHERIFF Room #: 423-1 ADM IN M.R.#: [id number] ������������� Admission: 04/09/19 ������������� Attend Phys: Fede Castellanos Discharge: ��� ������������� ��� Date of : 38 Date of Service: 04/10/19 0916 �� Report #: [id number] �������� ��������������������������������������������[id number] THIS REPORT FOR: //name// APPROVED REPORT Study performed: 04/10/2019 08:33:11 EXAM: Comprehensive 2D, Doppler, and color-flow Echocardiogram Patient Location: Bedside Room #: [facility] Status: routine BSA: 2.11 HR: 89 bpm BP: 116/59 mmHg Rhythm: Atrial Fibrillation Other Information Study Quality: Adequate Technically limited study due to broken hip, limited mobility. Indications Pre-Op Syncope Hx: Afib, CABG, COPD, HTN, PAD. 2D Dimensions RVDd: 49.50 mm IVSd: 12.03 (7-11mm) LVOT Diam: 23.04 (18-24mm) LVDd: 40.11 mm PWd: 11.59 (7-11mm) LVDs: 28.00 (25-40mm) Aortic Root: 41.98 mm Volumes Left Atrial Volume (Systole) Single Plane 4CH: 96.26 mL Single Plane 2CH: 78.69 mL LA ESV Index: 45.00 mL/m2 Aortic Valve AoV Peak Sukhjinder.: 0.95 m/s AO Peak Gr.: 4.71 mmHg LVOT Max P.66 mmHg LVOT Max V: 0.64 m/s SHANTEL Vmax: 2.83 cm2 [facility] [address] [place] [address] 2 D/M-MODE ECHOCARDIOGRAM Name: NERY SHERIFF Room #: 423-1 ADM IN .R.#: [id number] ������������� Admission: 04/09/19 ������������� Attend Phys: Fede Jimenez Jan Discharge: ��� ������������� ��� Date of : 38 Date of Service: 04/10/19 0916 �� Report #: [id number] �������� ��������������������������������������������[id number] Mitral Valve MV Decel. Time: 154.54 ms MV E Max Sukhjinder.: 1.19 m/s Pulmonary Valve PV Peak Sukhjinder.: 0.66 m/s PV Peak Gr.: 1.76 mmHg Tricuspid Valve TR Peak Sukhjinder.: 3.80 m/s RAP Estimate: 15.00 mmHg TR Peak Gr.: 58.00 mmHg PA Pressure: 73.00 mmHg Left Ventricle The left ventricle is normal size. There is normal LV segmental wall motion. Mild concentric left ventricular hypertrophy. Left ventricular systolic function is normal. LVEF is 60-65%. This study is not technically sufficient to allow evaluation of the LV diastolic function due to atrial fibrillation. Right Ventricle Right ventricle is dilated. Atria Left atrium is moderately dilated. Right atrium is severely dilated. Aortic Valve Aortic valve is trileaflet, mildly thickened and calcified. No aortic regurgitation is present. There is no aortic valvular stenosis. Mitral Valve Mitral valve leaflets are mildly thickened and calcified. Moderate mitral annular calcification. Mild to moderate mitral regurgitation. Tricuspid Valve The tricuspid valve is normal in structure. Moderate to severe tricuspid regurgitation. Estimated PAP is 70 mmHg. Pulmonic Valve The pulmonary valve is normal in structure. Trace pulmonic regurgitation. Great Vessels Aortic root is dilated at 4.2cm. Ascending aorta is not well [facility] [address] [place] [address] 2 D/M-MODE ECHOCARDIOGRAM Name: NERY SHERIFF Room #: 423-1 ADM IN M.R.#: [id number] ������������� Admission: 04/09/19 ������������� Attend Phys: Fede Castellanos Discharge: ��� ������������� ��� Date of : 38 Date of Service: 04/10/19915 �� Report #: [id number] �������� ��������������������������������������������[id number] visualized. IVC is dilated and collapses <50% with inspiration. Pericardium There is no pericardial effusion. <Conclusion> The left ventricle is normal size. Mild concentric left ventricular hypertrophy. Left ventricular systolic function is normal. Right ventricle is dilated. Left atrium is moderately dilated. Right atrium is severely dilated. Aortic valve is trileaflet, mildly thickened and calcified. Mitral valve leaflets are mildly thickened and calcified. Moderate mitral annular calcification. Mild to moderate mitral regurgitation. Moderate to severe tricuspid regurgitation. Estimated PAP is 70 mmHg. ��������������������������������������������� <ELECTRONICALLY SIGNED> ���������������������������������������� By: Solomon Love MD ��������������������������������������������� 04/10/19 0916 5 5 Solomon Love MD /LEOPOLDO
--- NOTE | 2019-04-10 15:28 | NUR ---
ASSESSMENT-PTLIVES AT HOME WITH HIS 74 YEAR OLD WHO IS HAVING SHOULDER PROBLEMS AND SHE ALSO HAS A WOUND FROM A SPIDER BITE. PT DRIVES BUT HAS NOT BEEN DRIVING DUE TO HER SHOULDER PROBLEM. PT HAS CECILIA TO [facility] IN THE PAST AND HAS HAD [facility] IN THE PAST. 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 PT USES A FWW IN THE HOME AND A CANE OUTSIDE OF THE HOME. HE DOES HIS OWN ADLS. THEY HAVE A SON U[place] IN [place] AND ANOTHER SON IN [place]. PT TO HAVE HIP SURGERY TOMORROW. FOLLOWING TO ASSIST WITH DC PLANNING.
--- NOTE | 2019-04-10 16:18 | NUR ---
PT ASSESSED THIS AM. PAIN WELL CONTROLLED UNLESS REPOSITIONING. SURGERY CANCELLED THIS AM PER DR. LOPEZ UNTIL CARDIOLOGY CLEARED HIM. PT NOW CLEARED AND WILL HAVE HIP REPAIRED TOMORROW PER DR. PIMENTEL. DR. PERAZA HERE AFTER LUNCH TO SEE PT. IV FLUIDS DC'D PER HIS ORDER TO RESTART THIS EVENING FOR NPO FOR SURGERY. KCL REPLACED IV AND PO. ATE SM AMTS. USING URINAL. NO BM THIS SHIFT. PT WILL TRANSFER TO STEPDOWN UNIT FOR TELE MONITORING WHEN BED AVAILABLE. PT IN CHRONIC AFIB W/ RATE CONTROLLED.
[2019-04-10 17:03] VITALS: BP 110/58
[2019-04-10 19:38] VITALS: BP 95/53
[2019-04-11] VITALS (19 sets, daily range): BP systolic 82–123; BP diastolic 40–69
--- NOTE | 2019-04-11 01:49 | NUR ---
PT ARRIVED FROM VIA BED WITH RN. PLACED IN ROOM 360. PT AWARE OF HIS STATUS WITH FRACTURE TO HIS RIGHT HIP. RATES PAIN AT 4/10 AT REST AND UP TO 10 WITH MOTION. ASKED FOR AND WAS GIVEN ONE LORTAB. REPORTEDLY SET FOR SURGERY ON 04/11. RAILS UP X4 PER PT REQUEST.
[2019-04-11 05:34] LABS: CALCIUM 8.7 mg/dL (8.5-10.1); CREATININE 1.5 mg/dL (0.7-1.3)
[2019-04-11 09:21] LABS: HEMATOCRIT 29.2 % (42.0-52.0); HEMOGLOBIN 9.6 gm/dL (14.0-18.0); MCH 28.6 pg (26.0-34.0); MCHC 32.9 g/dL (28.0-37.0); MCV 86.8 fL (80.0-100.0); RBC 3.36 mil/uL (4.50-6.00); RDW 17.2 % (10.5-14.5); WBC 8.9 thou/uL (4.0-11.0)
--- NOTE | 2019-04-11 09:25 | EKG ---
[address] [address] ELECTROCARDIOGRAM REPORT Name: NERY SHERIFF Room #: 360-P ADM IN M.R.#: [id number] ������������������ Admission: 04/09/19 ������������������ Attend Phys: Fede Hoffman Discharge: ������������������ Date of : 38 Report #: [id number] ����������������������������������������������������������������� [id number] THIS REPORT FOR: //name// [facility] Test Date: 2019-04-10 Test Time: 09:48:13 Pat Name: NERY SHERIFF Department: Room: 360 Gender: M Director China: GELA : 1940 Requested By: Fede Hoffman Order Number: [id number] MD: Parker Goodwin Measurements Intervals [place] Rate: 89 P: RI: QRS: 6 QRSD: 151 T: -30 QT: 422 QTc: 514 Interpretive Statements Atrial fibrillation Right bundle branch block Compared to ECG 04/09/2019 13:32:21 No significant changes Electronically Signed On 04-11-2019 9:24:59 CDT by Parker Goodwin [email or web address] ��������������������������������������������� <ELECTRONICALLY SIGNED> ���������������������������������������� By: Parker Goodwin MD, [facility] ��������������������������������������������� 04/11/19 0924 0948 7 Parker Goodwin MD, FACC /EPI
--- NOTE | 2019-04-11 09:46 | NUR ---
RECEIVED REPORT FROM [facility] NURSE, PT ABSENT FROM ROOM IN SURGERY, NO TELE STRIPS DONE FOR 0800 D/T ABSENCE. WILL MONITOR UPON HIS RETURN, IF APPLICABLE
--- NOTE | 2019-04-11 11:41 | NUR ---
PT IS A &0X4, APACHE, NORMALLY AMB ON HIS OWN W/WALKER. 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
--- NOTE | 2019-04-11 13:41 | EKG ---
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 : 1940 Requested By: Salazar Hernandez Order Number: [id number] MD: Trevin Ch Measurements Intervals [place] Rate: 80 P: CA: QRS: 36 QRSD: 156 T: -26 QT: 412 QTc: 476 Interpretive Statements Atrial fibrillation Right bundle branch block Compared to ECG 04/10/2019 09:48:13 No significant changes Electronically Signed On 04-11-2019 13:41:33 CDT by Trevin Ch [email or web address] ��������������������������������������������� <ELECTRONICALLY SIGNED> ���������������������������������������� By: Trevin Ch MD ��������������������������������������������� 04/11/19 1341 D: [id number] Trevin Ch MD /ROBINSON
[2019-04-12] VITALS (10 sets, daily range): BP systolic 81–131; BP diastolic 48–75
--- NOTE | 2019-04-12 03:30 | NUR ---
PATIENT IS POST OP DAY ONE. PATIENT HAS RT HIP SURGERY FOR FX. PATIENT HAS SIXTO DRESSING IN PLACE. PATIENT IS ON 2LNC. PATIENT DENIES PAIN. PATIENT IS COMPLIANT WITH IS. PATIENTS BP HAVE BEEN SOFT BUT REMAINING STABLE AND PATIENT IS GETTING FLUIDS PROVIDER AWARE ACCORDING TO DAY SHIFT. PATIENT IS ACHS ACCUCHECKS FOR STERIODS, BLOOD SUGAR TO BED STARTED IN THE MORNING. PATIENT HAS PILLOW BETWEEN LEGS TO PREVENT ADDUCTION. PATIENT IS CHRONIC A FIB. PATIENT IS RESTING COMFORTABLY IN BED. WCM
[2019-04-12 06:08] LABS: HEMATOCRIT 27.9 % (42.0-52.0); HEMOGLOBIN 9.3 gm/dL (14.0-18.0); MCH 28.8 pg (26.0-34.0); MCHC 33.3 g/dL (28.0-37.0); MCV 86.4 fL (80.0-100.0); RBC 3.22 mil/uL (4.50-6.00); RDW 17.3 % (10.5-14.5); WBC 7.3 thou/uL (4.0-11.0)
[2019-04-12 06:29] LABS: ALBUMIN 2.2 g/dL (3.4-5.0); ANION GAP 9 mmol/L (7-16); BUN 55 mg/dL (7-18); CALCIUM 8.4 mg/dL (8.5-10.1); CHLORIDE 98 mmol/L (98-107); CO2 24 mmol/L (21-32); CREATININE 1.9 mg/dL (0.7-1.3); GLUCOSE 144 mg/dL (74-106); PHOSPHORUS 3.4 mg/dL (2.5-4.9); POTASSIUM 4.9 mmol/L (3.5-5.1); SODIUM 131 mmol/L (136-145); TROPONIN-I <0.06 ng/mL (<0.06)
--- NOTE | 2019-04-12 16:25 | NUR ---
Received awake on bed. Due medications given as prescribed. Assisted in ADLs. On O2 at 2lpm via nasal cannula. With IV of D5 0.45NS at 100cc/hr at left forearm, infusing well. Incision site checked- dry, clean and intact. Pt on hip precaution- abduction pillow ordered and placed in betweem patient's legs. Pain medications given as prescribed. Seen and examined by Dr. blevins, IVF changed to NS at same rate as ordered. On accuchecks- on steroids. Seen by PT today, able to use walker with standby assist, able to sit out n chair for dinner time, tolerated PT session; as per PT will see pt tomorrow and will see if pt will be requiring rehab prior to home. Vital signs stable.
[2019-04-13 04:04] VITALS: BP 129/85
[2019-04-13 05:31] LABS: HEMATOCRIT 28.3 % (42.0-52.0); HEMOGLOBIN 9.4 gm/dL (14.0-18.0); MCH 28.6 pg (26.0-34.0); MCHC 33.2 g/dL (28.0-37.0); MCV 86.1 fL (80.0-100.0); RBC 3.28 mil/uL (4.50-6.00); RDW 17.3 % (10.5-14.5); WBC 8.4 thou/uL (4.0-11.0)
[2019-04-13 05:50] LABS: ALBUMIN 2.2 g/dL (3.4-5.0); CALCIUM 8.4 mg/dL (8.5-10.1); CREATININE 1.7 mg/dL (0.7-1.3); PHOSPHORUS 2.7 mg/dL (2.5-4.9); POTASSIUM 4.4 mmol/L (3.5-5.1)
[2019-04-13 07:34] VITALS: BP 135/63
[2019-04-13 15:40] VITALS: BP 131/70
[2019-04-13 20:00] VITALS: BP 143/78
[2019-04-14 01:30] VITALS: BP 150/79
[2019-04-14 04:45] VITALS: BP 151/69
--- NOTE | 2019-04-14 04:45 | NUR ---
progress pt a/o x4 slightly forgetful. able to make needs known. right hip has good pedal pulse brisk cap refill, sensation intact able to pedal and dorsiflex without difficulty. up with 1 GB and walker with verbal cues to maintain hip precautions. DENIES PAIN USING ISP WITH ENCOURAGEMENT PULLING IN THE CONTINUE TO MONITOR RESPIRATORY STATUS CONTINUE POC
--- NOTE | 2019-04-14 06:52 | NUR ---
DELTA RESULTS ON HGB 15.5 THIS DAY 04/14/19 HGB ON 04/13/19 WAS 9.4 CBC W/O DIFF RE-ORDER TO VERIFY RESULTS.
[2019-04-14 07:41] VITALS: BP 138/77
[2019-04-14 07:49] LABS: CHLORIDE ND mmol/L (98-107); POTASSIUM ND mmol/L (3.5-5.1); SODIUM ND mmol/L (136-145)
[2019-04-14 07:50] LABS: ANION GAP ND mmol/L (7-16); BUN ND mg/dL (7-18); CO2 ND mmol/L (21-32)
[2019-04-14 07:51] LABS: CALCIUM ND mg/dL (8.5-10.1); CREATININE ND mg/dL (0.7-1.3); GLUCOSE ND mg/dL (74-106); PHOSPHORUS ND mg/dL (2.5-4.9)
[2019-04-14 07:52] LABS: ALBUMIN ND g/dL (3.4-5.0)
[2019-04-14 07:53] LABS: RBC ND mil/uL (4.50-6.00); WBC ND thou/uL (4.0-11.0)
[2019-04-14 07:54] LABS: HEMOGLOBIN ND gm/dL (14.0-18.0)
[2019-04-14 07:55] LABS: HEMATOCRIT ND % (42.0-52.0); MCH ND pg (26.0-34.0); MCV ND fL (80.0-100.0)
[2019-04-14 07:56] LABS: MCHC ND g/dL (28.0-37.0); PLATELET COUNT ND thou/uL (150-400); RDW ND % (10.5-14.5)
[2019-04-14 08:02] LABS: HEMATOCRIT 26.9 % (42.0-52.0); HEMOGLOBIN 9.1 gm/dL (14.0-18.0); MCH 29.2 pg (26.0-34.0); MCHC 33.7 g/dL (28.0-37.0); MCV 86.7 fL (80.0-100.0); RBC 3.1 mil/uL (4.50-6.00); RDW 17.7 % (10.5-14.5); WBC 8.3 thou/uL (4.0-11.0)
[2019-04-14 08:23] LABS: ALBUMIN 2.2 g/dL (3.4-5.0); CREATININE 1.2 mg/dL (0.7-1.3); PHOSPHORUS 2.5 mg/dL (2.5-4.9); POTASSIUM 4.5 mmol/L (3.5-5.1)
[2019-04-14] MEDS ORDERED: ENOXAPARIN40 MG/0.1 SUBQ (10:15)
[2019-04-14] MEDS ORDERED: ATORVASTATIN CA40 MG PO (10:15)
[2019-04-14] MEDS ORDERED: TRI-BUFFERED A325 M1 PO (10:16)
[2019-04-14] MEDS ORDERED: CARDIZEM CD 18180 M3 PO (10:16)
[2019-04-14] MEDS ORDERED: HYDROCODON-ACE1 EAC7 PO (10:17)
[2019-04-14 10:26] VITALS: BP 138/77
[2019-04-14] MEDS ORDERED: DEXAMETHASONE1 MG PO (10:28)
--- NOTE | 2019-04-14 12:28 | NUR ---
Discharge Planning: planner/scheduler sent initial skilled referral to [facility] fax , patient will be ready for discharge today. Dp also notified Evette in admitting at [facility] mobile [phone].
--- NOTE | 2019-04-14 14:24 | NUR ---
CM MET WITH PT AT BEDSIDE THIS DAY AND INDICATED THAT CARE TEAM WAS RECOMMENDING POST ACUTE CARE STAY. PT INDICATED HE DIDN'T HAVE A PREFERENCE OF WHERE HE WENT. HE INDICATED THAT CM COULD CALL HIS SIG OTHER AND ASKE HER WHERE SHE WANTED REFERRALS SENT. CM SPOKE WITH SIG OTHER AND SHE INDICATED SHE WANTED REFERRAL SENT TO [facility]. REFERRAL SENT. THEY ARE ABLE TO ACCEPT PT AND THEY HAVE INSURANCE AUTH. CHART COPY MADE. ORDERS TO BE FAXED. REPORT TO BE CALLED TO . TRANSPORT VIA VAN IS TO BE ARRANGED.
--- NOTE | 2019-04-14 15:59 | NUR ---
PT STABLE THROUGHOUT SHIFT. PT DISCHARGED TO [facility]. REPORT CALLED TO ANGEL. PT LEFT UNIT VIA WHEELCHAIR VAN.
== END 2019-04-14 17:02 | DRG 469 ==
LOC: ER 10:40 → 4E 12:50 → 3W 12:50 → EROBS 12:50 → 4E 13:56 → 3W 04-10 23:42 → 4W 04-14 01:55
PROVIDERS: Emergency Medicine; Nurse Practitioner Acute Care; Orthopaedic Surgery; ADMIT Hospitalist
PROC: 0SRR019 Replacement of Right Hip Joint, Femoral Surface with Metal Synthetic Substitute, Cemented, Open Approach (ICD-10-PCS; principal; 2019-04-11)
DX: S72.011A Unspecified intracapsular fracture of right femur, initial encounter for closed fracture (principal); N17.0 Acute kidney failure with tubular necrosis; N18.4 Chronic kidney disease, stage 4 (severe); I13.0 Hypertensive heart and chronic kidney disease with heart failure and stage 1 through stage 4 chronic kidney disease, or unspecified chronic kidney disease; D62 Acute posthemorrhagic anemia; M62.82 Rhabdomyolysis; E46 Unspecified protein-calorie malnutrition; I50.9 Heart failure, unspecified; E86.0 Dehydration; E87.6 Hypokalemia; R29.6 Repeated falls; E83.42 Hypomagnesemia; I34.0 Nonrheumatic mitral (valve) insufficiency; I25.10 Atherosclerotic heart disease of native coronary artery without angina pectoris; I48.2 Chronic atrial fibrillation; I73.9 Peripheral vascular disease, unspecified; E78.5 Hyperlipidemia, unspecified; M10.9 Gout, unspecified; J44.9 Chronic obstructive pulmonary disease, unspecified; W18.39XA Other fall on same level, initial encounter; Z68.28 Body mass index [BMI] 28.0-28.9, adult; Z87.891 Personal history of nicotine dependence; Y93.89 Activity, other specified; Z95.5 Presence of coronary angioplasty implant and graft; Z95.1 Presence of aortocoronary bypass graft; Y92.098 Other place in other non-institutional residence as the place of occurrence of the external cause; Y99.8 Other external cause status; Z79.52 Long term (current) use of systemic steroids; Z79.899 Other long term (current) drug therapy; Z82.49 Family history of ischemic heart disease and other diseases of the circulatory system
CPT/HCPCS: 10084; 10183; 10779; 10879; 50010; 50101; 50382; 50414; 51057; 51130; 51225; 51226; 53000; 53078; 54118; 56460; 56524; 56527; 56528; 56530; 57095; 57103; 57165; 62110; 62900; 70005

== ENCOUNTER 2019-04-30 22:48 | Inpatient (IN) | payer OTHER ==
[~2019-04-30] VITALS: Ht 180.3 cm; Wt 99.9 kg
--- NOTE | ~2019-04-30 | HC ---
[facility] [place] [address] CONSULTATION Name: NERY SHERIFF Room #: 354-P ADM IN M.R.#: [id number] Admission: 05/01/19 ������������������ Attend Phys: Fede Hoffman Discharge: ������������������ Date of : 39 Report #: [id number] THIS REPORT FOR: //name// CC: Svetlana Hoffman DATE OF SERVICE: 05/06/2019 HISTORY OF PRESENT ILLNESS: The patient is a 78-year-old white male admitted back to [facility] from [facility] [place]. The patient originally had a right femur fracture, underwent hemiarthroplasty on 04/11/2019, weightbearing as tolerated. He was transferred to the [facility] [place]. He was progressing in therapies and then developed diarrhea with heme-positive stool with hematochezia. He was readmitted back to [facility]. He was also noted to have acute on chronic congestive heart failure. He has been diagnosed with an upper GI bleed with EGD noted a duodenal ulcer with visible vessels. He underwent injection and clipping. He has had problems with acute blood loss anemia. He underwent another followup EGD and he is to be continued in monitoring the hemoglobin, if he continues to drop, there are plans to do a colonoscopy. We are seeing him in Rehabilitation Medicine consultation. The patient has had a significant functional decline with his further medical complications noted above. PAST MEDICAL HISTORY: Includes congestive heart failure. He has had prior history of CVA, hypertension, hyperlipidemia, atrial fibrillation, coronary artery disease with coronary artery bypass grafting. He had the right femur fracture as noted above. He has a history of permanent atrial fibrillation. MEDICATIONS: Please see the full medication listing. ALLERGIES: No known drug allergies. HABITS: Former smoker, quit greater than a year ago. No history of alcohol abuse. SOCIAL HISTORY: Lives in a ranch style house with spouse, two steps in. Typically utilizes a cane or a walker. He notes his spouse is currently getting inpatient rehabilitation. REVIEW OF SYSTEMS: Did not offer any current complaints of chest pain, shortness of breath or abdominal discomfort. Complains of overall generalized weakness and decreased functional ability. PHYSICAL EXAMINATION: GENERAL: A 78-year-old white male in no obvious distress. [address] [address] CONSULTATION Name: NERY SHERIFF Room #: 354-P [facility] IN M.R.#: [id number] Admission: 05/01/19 ������������������ Attend Phys: Fede Hoffman Discharge: ������������������ Date of : 39 Report #: [id number] VITAL SIGNS: Last recorded temperature is 98.4, pulse 68, respirations 16, blood pressure 116/61. NEUROLOGIC: The patient is alert. He follows basic 1 step commands. Facies are symmetric. Functional range of motion of both upper extremities with strength grade 4-/5. DTRs are trace to 1. Lower extremities, no focal calf swelling. Strength is probably a grade 3+/5. DTRs are trace to 1. He is min assist with basic sit to stand, toileting has been max assist and lower extremity dressing is max assist. ASSESSMENT: A 78-year-old white male with the following problem list: 1. Right femur fracture, status post hemiarthroplasty, 04/11/2019, weightbearing as tolerated. 2. Upper gastrointestinal bleed with duodenal ulcer with visible vessel, status post injection and clipping. 3. Acute blood loss anemia, needing to continue to monitor the hemoglobin with possible plans for colonoscopy as per Gastroenterology. 4. Congestive heart failure, acute on chronic. 5. Coronary artery disease. 6. Permanent atrial fibrillation. Not a good candidate for systemic anticoagulation. 7. Hypertension. 8. Hyperlipidemia. PLAN: With his subsequent medical complications a short acute in-hospital inpatient rehabilitation stay would certainly be reasonable. He could get the therapy that he needs to further improve his strength and endurance well also being concurrently monitored regarding his medical issues while on the rehab vázquez. The medical consultants could continue to follow with him while he was on the rehab vázquez getting his therapy. Insurance issues will be checked and we will be glad to follow along with you regarding his rehab therapy needs. ��������������������������������������������� ���������������������������������������� By: ��������������������������������������������� 1602 0334 Kilo Downs MD /[facility]
[~2019-04-30 22:48] MED LIST changes: +ATORVASTATIN CA40 MG PO; +ENOXAPARIN40 MG/0.1 SUBQ; +HYDROCODON-ACE1 EAC7 PO; +TRI-BUFFERED A325 M1 PO
[2019-04-30 22:59] VITALS: BP 104/58
[2019-04-30] MEDS ORDERED: PROBIOTIC1 EAC1 PO (23:16)
[2019-04-30] MEDS ORDERED: ASA5UEC PO (23:16)
[2019-04-30] MEDS ORDERED: BYSTOLIC 5 MG5 M1 PO (23:17)
[2019-04-30] MEDS ORDERED: DEMADEX20 MG PO (23:19)
[2019-04-30] MEDS ORDERED: ULORIC40 MG PO (23:20)
[2019-04-30 23:48] LABS: HEMATOCRIT 23.9 % (42.0-52.0); HEMOGLOBIN 7.9 gm/dL (14.0-18.0); MCH 29.6 pg (26.0-34.0); MCHC 32.9 g/dL (28.0-37.0); MCV 89.8 fL (80.0-100.0); PLATELET COUNT 166 thou/uL (150-400); RBC 2.66 mil/uL (4.50-6.00); RDW 21.2 % (10.5-14.5); WBC 25.1 thou/uL (4.0-11.0)
[2019-04-30 23:54] LABS: CALCIUM 7.6 mg/dL (8.5-10.1); CREATININE 1.8 mg/dL (0.7-1.3); MAGNESIUM 1.5 mg/dL (1.8-2.4); POTASSIUM 4.7 mmol/L (3.5-5.1)
[2019-05-01] VITALS (14 sets, daily range): BP systolic 86–129; BP diastolic 42–78
[2019-05-01 00:25] LABS: ABSOLUTE NEUTROPHILS 23.8 thou/uL (1.4-8.2)
[2019-05-01 00:26] LABS: ANISOCYTOSIS 2+; PLATELET ESTIMATE NORMAL; POIKILOCYTOSIS 1+
[2019-05-01 05:20] LABS: HEMOGLOBIN 7.2 gm/dL (14.0-18.0); MCH 29.6 pg (26.0-34.0); MCHC 32.7 g/dL (28.0-37.0); MCV 90.3 fL (80.0-100.0); RBC 2.44 mil/uL (4.50-6.00); RDW 21.8 % (10.5-14.5)
--- NOTE | 2019-05-01 05:22 | NUR ---
PATIENT ARRIED ON UNIT AT 0155 VIA CART FROM THE ED. ACCOMPANIED BY ED PERSONEL. DENIES PAIN. HAS URINAL IN PLACE BETWEEN LEGS D/T URINARY FREQUENCY AND URGENCY. IS FULL CODE. ON 1500ML FR. NPO AT BREAKFAST. H&H LOW. T&S DONE. HAD BLOODY STOOL, DARK RED BLOOD. HAS NOT SLEPT AT ALL TO NIGHT.
[2019-05-01 05:27] LABS: CALCIUM 7.7 mg/dL (8.5-10.1); CREATININE 1.6 mg/dL (0.7-1.3)
[2019-05-01 09:53] LABS: ALBUMIN 2.1 g/dL (3.4-5.0); DIRECT BILIRUBIN 0.2 mg/dL (<0.1-0.3); TOTAL BILIRUBIN 0.7 mg/dL (<0.1-1.0); TOTAL PROTEIN 4.4 g/dL (6.4-8.2)
--- NOTE | 2019-05-01 12:43 | NUR ---
ASSESSMENT: CM REVIEWED CHART AND MET WITH PATIENT AT THE BEDSIDE. PT WAS ADMITTED FROM [facility] FOR [facility]. PT REPORTS THAT HE WAS UPSET BECAUSE HCR OF [facility] NEVER CALLED HIS SON UMA TO LET HIM KNOW THAT PATIENT WAS BEING TRANSPORTED TO THE HOSPITAL. PTS SON KYLEE IS PRESENT DURING ASSESSMENT. PT STATES TODAY WOULD OF BEEN HIS DAY AND HCR AD AND THAT HE WAS GOING TO GO HOME WITH [facility]. CM CONTACTED [facility] AND SPOKE WITH ADMISSION WHO IS GOING TO VERIFY IF PATIENT HAS ANY SNF DAYS LEFT. IF PATIENT IS ABLE TO GO HOME WITH HH HE PREFERS TO USE [facility]. PT/OT EVALS PENDING. CM WILL CONTINUE TO FOLLOW TO ASSIST NEEDED.
--- NOTE | 2019-05-01 12:45 | NUR ---
REMAINED NPO FOR POTENTIAL GI PROCEDURE. EGD WITH POSSIBLE FLEX SIG ORDERED AND PRBCS 1 UNIT. PT HAD TOTAL OF 3 LARGE BLACK STOOL. FAMILY PRESENT, UPDATED ON PT CONDITION.
--- NOTE | 2019-05-01 16:13 | NUR ---
RETURNED FROM GI LAB. BLOOD INFUSED. ALERT/ORIENTED, PLEASANT, DENIES DISCOMFORT, NO EVIDENCE OF BLEEDING AT THIS TIME.
[2019-05-01 17:01] LABS: HEMOGLOBIN 8.2 gm/dL (14.0-18.0)
[2019-05-01] MEDS ORDERED: TIMOLOL GL0.5 %/5 M1 OPHTHALMIC (20:47)
[2019-05-01] MEDS ORDERED: XALATAN2.5 ML OPHTHALMIC (20:48)
--- NOTE | 2019-05-01 23:12 | P ---
[facility] [place] [address] PROCEDURE REPORT Name: NERY SHERIFF Room #: 354-P [facility] IN M.R.#: [id number] Admission: 05/01/19 ������������������ Attend Phys: Fede Hoffman Discharge: ������������������ Date of : 39 Report #: [id number] THIS REPORT FOR: //name// CC: Svetlana Hoffman MD DATE OF SERVICE: 05/01/2019 Following is an EGD to evaluate melena and a drop in hemoglobin on the patient. INDICATION FOR PROCEDURE: This patient has had melenic stools, dropped his hemoglobin significantly. EGD is being performed to evaluate for possible upper GI blood loss. Informed consent for this procedure was obtained prior to the administration of any medication. The risks of the procedure, which include and/or are not limited to bleeding, perforation, infection, complications of sedation and the possibility I could something were explained to the patient and he has given his consent by signing. Anesthesia kindly provided deep sedation for this procedure. DESCRIPTION OF PROCEDURE: The Olympus upper videoscope is introduced through the upper esophageal sphincter and advanced under direct visualization to the third portion of the duodenum. Findings are noted on withdrawal of the scope. The second portion of the duodenum appears normal throughout its entirety. In the distal duodenal bulb, there are three nonbleeding ulcers, two have visible vessels, one is a raised visible vessel and the other is a flat visible vessel. The third one has no visible vessels. The two vessels were injected with epinephrine 0.5 mL and then, an endoclip was placed on the raised vessel as it was the most likely culprit to bleed. I washed the other visible vessel that was flat with a water jet and was unable to induce it to bleed, so I believe that it is stable. The remaining more proximal duodenal bulb appears normal. Pylorus, normal mucosa. Antrum, normal mucosa. Body, normal mucosa. Cardia and fundus, normal mucosa. Biopsies are obtained x 2 from the antrum and the body of the stomach to evaluate specifically for Helicobacter pylori infection. Retroflex view did not reveal any significant hiatal hernia. The scope is withdrawn into the esophagus. The Z-line is appropriately located at the top of the gastric folds and appears normal. The patient does have adherent, yellow, raised, plaque-like lesions in the esophagus. These may be fungal infections and so, brushings of these lesions were obtained and sent to pathology lab for MELIDA prep. The scope is withdrawn. The patient went to the recovery area in stable condition. He tolerated the procedure well. [address] [address] PROCEDURE REPORT Name: NERY SHERIFF Room #: 354-P [facility] IN M.R.#: [id number] Admission: 05/01/19 ������������������ Attend Phys: Fede Hoffman Discharge: ������������������ Date of : 39 Report #: [id number] IMPRESSION: 1. Three duodenal bulb ulcers, nonbleeding at this time, one with a visible vessel that was raised. I injected it with epinephrine and endo-clipped it successfully. The second ulcer had a flat visible vessel that was washed with a water jet and found to be stable. A third ulcer has no visible vessels and is not bleeding. 2. The stomach appeared normal and biopsies were taken from the antrum and the body to evaluate for possible Helicobacter pylori infection. Good hemostasis was noted after the forceps biopsies were taken. 3. Yellow, exudative, raised dots in the esophagus that I brushed for MELIDA prep to evaluate for possible Park. My recommendations were to await the biopsy results. Continue the Protonix drip for 48 more hours and then switch to 40 mg IV push b.i.d. We will monitor his H and H q.8h. for 1 day. We will start him on a clear liquid diet. Thank you very much once again for allowing me to participate in his care, Dr. Singh and Dr. Hoffman. ��������������������������������������������� <ELECTRONICALLY SIGNED> ���������������������������������������� By: Svetlana Romero DO ��������������������������������������������� 05/01/19 2312 1520 1640 Svetlana Romero DO /nt
[2019-05-02 04:56] VITALS: BP 125/62
[2019-05-02 05:43] LABS: HEMOGLOBIN 7.5 gm/dL (14.0-18.0); MCH 30.3 pg (26.0-34.0); MCV 89.3 fL (80.0-100.0); RBC 2.47 mil/uL (4.50-6.00); RDW 19.8 % (10.5-14.5); WBC 9.6 thou/uL (4.0-11.0)
[2019-05-02 06:02] LABS: CALCIUM 7.7 mg/dL (8.5-10.1); CREATININE 1.4 mg/dL (0.7-1.3); POTASSIUM 3.8 mmol/L (3.5-5.1)
[2019-05-02 07:47] VITALS: BP 121/50
--- NOTE | 2019-05-02 07:54 | NUR ---
PATIENT IS PROGRESSING SLOWLY IN HIS CARE PLAN. VITAL SIGNS STABLE WITH PATIENT HAVING NO COMPLAINTS OF PAIN OR NAUSEA. FULLY ORIENTED THROUGHOUT SHIFT, PATIENT IS ABLE TO PARTICIPATE IN CARE AND CALL APPROPRIATELY FOR NEEDS. PATIENT HAD MULTIPLE BLOODY INCONTINENT STOOLS AND WAS CLEANED WITH SKIN CARE PROVIDED. CONTINUE PLAN OF CARE.
--- NOTE | 2019-05-02 12:20 | NUR ---
ON-GOING ASSESSMENT: CM REVIEWED CHART AND SPOKE WITH ATTENDING. PT IS TO BE ON IV PROTONIX FOR 72 HOURS SO WILL BE HERE OVER THE WEEKEND. CM WAITING ON PT/OT TO SEE PATIENT TO DETERMINE IF HE IS SAFE FOR HOME WITH HH ([facility]) WHICH HE IS WANTING. NO PLANS FOR DISCHARGE OVER THE WEEKEND. CM WILL CONTINUE TO FOLLOW TO ASSIST NEEDED.
[2019-05-02 13:53] VITALS: BP 120/45
[2019-05-02 15:19] LABS: HEMATOCRIT 24.3 % (42.0-52.0); HEMOGLOBIN 8.2 gm/dL (14.0-18.0)
[2019-05-02 15:55] VITALS: BP 141/46
[2019-05-02 19:30] VITALS: BP 149/60
--- NOTE | 2019-05-02 22:01 | NUR ---
PATIENT ALERT AND ORIENTED. PATIENT HAD EPISODE OF LARGE MOSTLY BLOOD STOOL ABOUT 1400 WHEN WALKING WITH OT THERAPY TO BATHROOM. PATIENT EXPERIENCE DIZZINESS AND WAS ABLE TO WALK TO BED. CONTACTED HOSPITALIST AND STAT H&H WITH BETTER RESULT THAN THIS MORNING. PATIENT BP 120/45 AT TIME OF BLOOD STOOL AND ABOUT 1 HOUR LATER 141/46. PATIENT REMAINED STABLE FOR REMAINDER OF SHIFT. SPOKE WITH PATIENT SON VIA PHONE CALL.
[2019-05-03 03:30] VITALS: BP 110/59
--- NOTE | 2019-05-03 04:30 | NUR ---
Patient making progress towards outcome goals. Vital signs and rhythm stable. No active signs of bleeding. Protonix drip infusing. High fall risk. Uses call light appropriately for needs,
[2019-05-03 05:41] LABS: CALCIUM 7.9 mg/dL (8.5-10.1); CREATININE 1.3 mg/dL (0.7-1.3); POTASSIUM 3.7 mmol/L (3.5-5.1)
[2019-05-03 07:39] VITALS: BP 123/46
[2019-05-03 12:32] LABS: URINE BILIRUBIN NEGATIVE (Negative); URINE BLOOD 3+ (Negative); URINE CLARITY SL CLOUDY; URINE COLOR YELLOW; URINE GLUCOSE-RANDOM* NEGATIVE (Negative); URINE KETONES NEGATIVE (Negative); URINE NITRITE-REFLEX NEGATIVE (Negative); URINE PROTEIN (DIPSTICK) TRACE (Negative); URINE SPECIFIC GRAVITY <= 1.005 (1.005-1.035); URINE UROBILINOGEN 0.2 E.U./dl (0.2-1.0)
[2019-05-03 12:36] LABS: URINE LEUKOCYTES-REFLEX 3+ (Negative)
[2019-05-03 12:52] LABS: BACTERIA-REFLEX >30 Many /HPF (None Seen); CASTS None Seen /LPF (None Seen); CRYSTALS None Seen /LPF (None Seen); SQUAMOUS None Seen /LPF (0-3); URINE RBC 0-2 Rare /HPF (0-2); URINE WBC-REFLEX >25 Many /HPF (0-5)
[2019-05-03 16:35] VITALS: BP 158/51
--- NOTE | 2019-05-03 18:45 | NUR ---
ASSUMED CARE OF PATIENT AT 0715, REPORT RECEIVED FROM JAMILAH/RN. PATIENT ALERT AND ORIENTED X 4. PATIENT UP WITH ASSIST X 1 WITH GAILT BELT AND WALKER. PHYSICAL THERAPY WORKED WITH THE PATIENT, PATIENT SIT UP IN THE CHAIR FOR A FEW HOURS, THIS RN ASSISTED PATIENT BACK TO BED, PRIOR TO DINNER. PATIENT DENIES PAIN THIS SHIFT. BUTTOCKS CHECKED AFTER SITTING IN CHAIR, ANNABEL-CARE DONE APPLIED BARRIER CREAM. PATIENT HAS RIGHT HAND AND RIGHT FOREARM IV IN PLACE, WITH PROTONIX 8MG/HR GOING CONT, NEW BAG AT ABOUT 1458. PATIENT VOIDS W/O DIFFICULTY, NO BLEEDING NOTED, NO BM THIS SHIFT, STILL NEED STOOL SAMPLE. A-FIB ON THE MONITOR, CONTROLLED AND STABLE. NEW ORDERS FOR LABS IN THE AM. UPDATE GIVEN TO SON/UMA. THIS RN PAGED DR LOPEZ IN REGARD TO UA RESULTS, NO CALL BACK. WILL CONTINUE TO MONITOR.
[2019-05-03 19:25] VITALS: BP 133/52
[2019-05-04 03:54] VITALS: BP 119/59
[2019-05-04 04:31] LABS: HEMATOCRIT 21.6 % (42.0-52.0); HEMOGLOBIN 7.3 gm/dL (14.0-18.0)
--- NOTE | 2019-05-04 05:43 | NUR ---
ASSESSMENT DOCUMENTED.PT A/OX4.VSS.REMAINED IN BED THROUGHOUT THE NOC.VOIDING ADEQUATELY VIA URINAL.DENIES PAIN.NO S/SX OF ACTIVELY BLEEDING.NO BM THIS AM STILL NEEDING STOOL FOR OCCULT BLOOD.CONT ON PROTONIX DRP AT 8MG/HR.TOLERATNG.PT DENIES ANY NEEDS AT THIS TIME.
[2019-05-04 07:06] VITALS: BP 119/54
[2019-05-04 16:19] VITALS: BP 126/57
--- NOTE | 2019-05-04 19:46 | NUR ---
PT ALERT AND ORIENTED TIMES FOUR. VSS, 98%DR AYANNA CALLED FOR LOW HR.. PT C/O PAIN SCHEDULED PAIN MEDICATIONS GIVEN. PT TOLERATES FULL LIQUID DIET. PT TURNED FREQUENTLY THIS SHIFT. WILL CONTINUE TO MONITOR.
[2019-05-04 20:05] VITALS: BP 113/54
[2019-05-05 04:00] LABS: WBC 6.1 thou/uL (4.0-11.0)
[2019-05-05 04:03] LABS: MCH 31.5 pg (26.0-34.0); MCHC 34.1 g/dL (28.0-37.0); MCV 92.2 fL (80.0-100.0); RBC 2.03 mil/uL (4.50-6.00); RDW 20.3 % (10.5-14.5)
[2019-05-05 04:05] VITALS: BP 99/51
[2019-05-05 04:09] LABS: HEMOGLOBIN 6.4 gm/dL (14.0-18.0)
[2019-05-05 04:10] LABS: HEMATOCRIT 18.7 % (42.0-52.0)
--- NOTE | 2019-05-05 04:27 | NUR ---
RE- EVALUTE BP MEDS PER PROVIDER. PAITENT OCCATIONALLY DROPS IN TO THE 30'S CONTROLLED A FIB. DAY PROVIDER STATED HOLD ALL BETA BLOCKERS. WCM
[2019-05-05 04:30] LABS: ALBUMIN 1.9 g/dL (3.4-5.0); CALCIUM 7.6 mg/dL (8.5-10.1); CREATININE 1.4 mg/dL (0.7-1.3); POTASSIUM 3.8 mmol/L (3.5-5.1); TOTAL BILIRUBIN 1.2 mg/dL (<0.1-1.0); TOTAL PROTEIN 4.3 g/dL (6.4-8.2)
[2019-05-05 06:03] VITALS: BP 113/47; BP 119/57
[2019-05-05 08:03] VITALS: BP 110/47
--- NOTE | 2019-05-05 08:13 | NUR ---
patient is alert and oriented. patient had some bradicardia in the 30's provider aware. patient recived blood transfusion this shift. patient is a fib on tele. patient is 1500ml fluid restriction. patients lbm was the 21st. patient is incontient. patient is up times one q2turn. refuses most turns. turns are painful. 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 patient is on room air. patient is resting comfortably in bed. wcm. patient is progressing to goals.
--- NOTE | 2019-05-05 08:17 | NUR ---
on-going assessment: PTS HEMOGLOBIN IS LOW AND HE IS RECEIVING TRANSFUSION. PT DID WELL WITH PHYSICAL THERAPY AND THEY ARE RECOMMENDING HH AT DISCHARGE. PT STATES [facility] AND PREFERS TO USE [facility] AT DISCHARGE. NAVEEN FAXED REFERRAL TO [facility] FAX [phone]. KW.
[2019-05-05 15:00] LABS: HEMATOCRIT 24.9 % (42.0-52.0); HEMOGLOBIN 8.3 gm/dL (14.0-18.0)
[2019-05-05 16:17] VITALS: BP 124/55
--- NOTE | 2019-05-05 17:05 | PATH ---
[facility] [place] [address] PATHOLOGY RPT PROCEDURE Name: MANNY SHERIFF Room #: 354-P ADM IN M.R.#: [id number] ������������������ Admission: 05/01/19 ������������������ Date of : 39 Discharge: Report #: [id number] Path Case #: [id number] [facility] Accession Number: [id number] . 01 Material submitted: . stomach - BX GASTRITIS/STOMACH R/O H PYLORI . 01 Clinical history: . Preop DX: GI bleed Postop DX: Duodenal ulcer x2, gastritis, rene esophagitis R/O H pylori . 02 Diagnosis: Gastric mucosa, gastritis rule out H. pylori, endoscopic biopsy: - Mild chronic inflammation. - Negative for intestinal metaplasia or atrophy. - Negative for Helicobacter pylori (properly-controlled immunohistochemical stain performed). . (IUV:mml; 05/05/2019) QLM/05/05/2019 . 02 Electronically signed: . Vi Ayala MD, Pathologist NPI- [id number] . 01 Gross description: . Received in formalin labeled "Manny Sheriff, KENNETH stomach R/O H pylori," are two segments of yellow-gay soft tissue measuring 0.4 x 0.2 x 0.2 cm and 0.6 x 0.2 x 0.1 cm in greatest dimensions. The specimen is submitted entirely in cassette A1. ([facility]; 05/02/2019) XDC/XDC . 02 Pathologist provided ICD-10: K29.50 . 02 CPT . 623861, [id number] Specimen Comment: A courtesy copy of this report has been sent to Specimen Comment: [phone], , . Specimen Comment: Report sent to ,DR HORTON / DR LOPEZ Performed at: [address], [place], [place] [id number] MD Srikanth De Jesus MD Phone: [phone] Performed at: [address] [place] [address] PATHOLOGY RPT PROCEDURE Name: MANNY SHERIFF Anabell Room #: 354-P ADM IN M.R.#: [id number] ������������������ Admission: 05/01/19 ������������������ Date of : 39 Discharge: Report #: [id number] Path Case #: [id number] [facility] [address] [id number] MD Vi Ayala MD Phone: [phone]
--- NOTE | 2019-05-05 18:28 | NUR ---
ASSUMED PATIENT CARE AT 0700. A/O X4. GENERLAIZED WAKENESS. RECEIVED ONE UNIT RBC NO REACTION NOTED. HH BACK TO 8.3. PATIENT HAD A LARGE BLACK BM. TOLERATED FILL LIQUID DIET. WILL NPO AFTER NIDNIGHT FOR POSSIBLE EGD IN AM. SLOWLY TOWARDS POC GOALS.
[2019-05-05 19:40] VITALS: BP 112/42
[2019-05-06 01:46] VITALS: BP 112/42
[2019-05-06 04:11] LABS: HEMATOCRIT 22.4 % (42.0-52.0); HEMOGLOBIN 7.6 gm/dL (14.0-18.0); MCH 31.2 pg (26.0-34.0); MCV 91.9 fL (80.0-100.0); RBC 2.44 mil/uL (4.50-6.00); RDW 19.7 % (10.5-14.5); WBC 4.9 thou/uL (4.0-11.0)
[2019-05-06 04:16] VITALS: BP 112/57
[2019-05-06 04:23] LABS: CALCIUM 7.9 mg/dL (8.5-10.1); CREATININE 1.4 mg/dL (0.7-1.3); POTASSIUM 3.8 mmol/L (3.5-5.1)
--- NOTE | 2019-05-06 05:19 | NUR ---
URINE CULTURE THAT WAS DRAWN ON ADMISSION SHOWS PT HAS UTI. CALLED [employer]ING [employer]ADES WORKER [employer]INE AND DISCUSSED OPTIONS AND RECEIVED ORDERS FOR ROCEPHIN IVPB. PT WAS IN CHAIR UNTIL 2300 AND THEN BACK TO THE BED. X2 ASSIST WITH GAIT BELT AND WALKER TO MOVE PT BACK TO THE BED. PT STILL VERY WEAK. FOLLOWING POC WITH GTT PROTONIX AND MPO STATUS SINCE 0. SURGICAL SITE ON RIGHT HIP C/D/I. VSS, BLLE +2. CALL LIGHT WITHIN REACH.
[2019-05-06 07:30] VITALS: BP 116/61
--- NOTE | 2019-05-06 13:34 | NUR ---
ON-GOING ASSESSMENT: CM RECEIVED A CALL FROM PATIENTS EMEKA EATON. UMA STATING THAT HE IS WORRIED PATIENT MAY BE TOO WEAK TO RETURN HOME AT DISCHARGE PATIENTS IS IN POORER HEALTH THEN PT. HE STATES PATIENT HAS NOT REALLY HAD MUCH PHYSICAL THERAPY EVEN WHILE AT [facility] ER DUE TO THE SWELLING HE HAS BEEN HAVING. CM REACHED OUT TO [facility] AND LEFT WITH ADMISSIONS TO SEE IF PATIENT STILL HAD ANY SNF DAYS LEFT OR IF HE WAS IN HIS COPAY DAYS. PT/OT STILL WORKING WITH PATIENT AND CM WILL CONTINUE TO FOLLOW.
[2019-05-06 16:39] VITALS: BP 132/58
--- NOTE | 2019-05-06 16:50 | NUR ---
ASSUMED PATIENT CARECAT 0700. A/O X4. HAD SECOND EGD IN AM. NO BM ON THIS SHIFT. TOLERATED DIET AFTER EGD. DENIES PAIN. NO N/V. SOLWLY TOWARDS POC GOALS.
--- NOTE | 2019-05-06 16:58 | P ---
[facility] [place] [address] PROCEDURE REPORT Name: NERY SHERIFF Room #: 354-P [facility] IN M.R.#: [id number] Admission: 05/01/19 ������������������ Attend Phys: Fede Hoffman Discharge: ������������������ Date of : 39 Report #: [id number] THIS REPORT FOR: //name// CC: Svetlana Arguelles MD DATE OF SERVICE: 05/06/2019 PROCEDURE PERFORMED: Upper endoscopy. HISTORY OF PRESENT ILLNESS: The patient is a 78-year-old male with a history of upper GI bleed. He underwent an upper endoscopy by my partner, Dr. Romero on 05/01/2019. Three duodenal bulb ulcers were noted, nonbleeding, 1 with a visible vessel that was injected with epinephrine and endoclipped. Second ulcer with a flat visible vessel, possible Park esophagitis noted. Biopsies were obtained to rule out the possibility of H. pylori. The patient was started on a Protonix drip. He did require blood transfusion. Biopsies were negative for H. pylori. Yesterday, the patient's hemoglobin dropped to 6.4, he was therefore transfused 1 unit of packed cells, his hemoglobin is 8.3. He then had a melanotic type stool at that time. This morning, his hemoglobin is 7.6. Because of this, the plan is to repeat upper endoscopy to see if any signs of continued bleeding. DESCRIPTION OF PROCEDURE: The risks and benefits of the procedure were explained to the patient, those risks including but not limited to bleeding, perforation, the risk of sedation. He understood these risks and gave informed consent. Sedation was given using propofol per anesthesia. Next, using a standard Olympus upper endoscope, the scope was placed in the patient's mouth and advanced under direct vision through the esophagus, stomach and into the second portion of the duodenum. The esophagus was normal throughout. The GE junction was normal. Overall, the gastric mucosa was normal. A few small areas of erythema were noted. This was not consistent with AVMs. There was no evidence of blood throughout the stomach or the duodenum. The pylorus was normal and patent. In the duodenal bulb, two ulcers were noted. The larger ulcer was approximately 1.5 cm in size. There was no visible vessel. There was a small erythematous area, but this showed no signs of bleeding or visible vessel, but I suspect this is where the previous vessel was noted in the process of healing. The second ulcer was smaller at 1 cm, no visible vessel. The scope was passed into the first and second portion of the duodenum, which was normal. Again, no evidence of blood throughout the exam today. At this point, the scope was then withdrawn and the procedure terminated. The patient tolerated the procedure well. IMPRESSION: [facility] [address] [place] [address] PROCEDURE REPORT Name: NERY SHERIFF Room #: 354-P [facility] IN M.R.#: [id number] Admission: 05/01/19 ������������������ Attend Phys: Fede Hoffman Discharge: ������������������ Date of : 39 Report #: [id number] 1. Two duodenal bulb ulcers. No signs of bleeding as described above. 2. Mild patchy gastritis. No signs of bleeding. RECOMMENDATIONS: Continue to monitor hemoglobin. Continue PPI therapy and Carafate. If the patient's hemoglobin continues to drop, may need to consider colonoscopy or further evaluation. Thank you for allowing me to participate in his care. ��������������������������������������������� <ELECTRONICALLY SIGNED> ���������������������������������������� By: Micky Sweeney MD ��������������������������������������������� 05/06/19 1658 1333 1346 Micky Sweeney MD /nt
[2019-05-06 19:15] VITALS: BP 127/58
[2019-05-07 04:21] VITALS: BP 124/50
--- NOTE | 2019-05-07 04:33 | NUR ---
PATIENT IS ADVANCING IN HIS CARE PLAN. VITAL SIGNS STABLE WITH PATIENT HAVING NO COMPLAINTS OF NAUSEA. PATIENT DID COMPLAIN OF LOW LEVEL BACK PAIN WHICH WAS TREATED EFFECTIVELY WITH POSITIONING. PATIENT IS FULLY ORIENTED AND ABLE TO PARTICIPATE IN CARE AND CALL APPROPRIATELY FOR NEEDS. NO EVIDENCE OF BLEEDING OVER SHIFT. PATIENT HAS BEEN UP MULTIPLE TIMES TO BEDSIDE COMMODE WITH ASSISTANCE INCIDENT FREE. FREQUENT TURNS AND BARRIER CREAM APPLICATION FOR SKIN CARE. CONTINUE PLAN OF CARE.
[2019-05-07 05:59] LABS: HEMATOCRIT 24.1 % (42.0-52.0); HEMOGLOBIN 8.1 gm/dL (14.0-18.0); MCH 31.3 pg (26.0-34.0); MCHC 33.8 g/dL (28.0-37.0); MCV 92.7 fL (80.0-100.0); RBC 2.6 mil/uL (4.50-6.00); RDW 20.1 % (10.5-14.5)
[2019-05-07 06:11] LABS: CALCIUM 7.6 mg/dL (8.5-10.1); CREATININE 1.7 mg/dL (0.7-1.3); POTASSIUM 3.8 mmol/L (3.5-5.1)
[2019-05-07 07:33] VITALS: BP 123/57
[2019-05-07] MEDS ORDERED: NEURONTIN 300300 M1 PO (12:33)
[2019-05-07] MEDS ORDERED: CARAFATE 11 GM/10 M1 PO (12:33)
[2019-05-07] MEDS ORDERED: ACETAMINOPHEN325 M1 PO (12:33)
[2019-05-07] MEDS ORDERED: PROTONIX40 M1 PO (12:33)
[2019-05-07] MEDS ORDERED: BYSTOLIC2.5 MG PO (12:33)
[2019-05-07] MEDS ORDERED: MIRALAX17 GM PO (12:33)
[2019-05-07] MEDS ORDERED: LIDOPATCH1 EACH TRANSDERM (12:33)
[2019-05-07] MEDS ORDERED: CEFUROXIME250 MG PO (12:33)
[2019-05-07] MEDS ORDERED: ALPRAZOLAM 0.0.25 M1 PO (12:33)
--- NOTE | 2019-05-07 15:05 | NUR ---
ON-GOING ASSESSMENT: NAVEEN REVIEWED CHART AND MET WITH PATIENT AT THE BEDSIDE. CM WAS NOTIFIED BY 5N THAT DUE TO HIS BENEFITS HE WOULD HAVE TO PAY 275 DOLLARS FOR THE FIRST 7 DAYS OF ACUTE REHAB AND THEN BE COVERED AFTER. IF PATIENT DECIDED TO GO TO SNF AT [facility] THERE ARE 4 TOTAL SNF DAYS LEFT COVERED AT 100 PERCENT AND THEN HE OWES 175/DAY. PT STATING HE CANNOT AFFORD ACUTE REHAB AND WOULD PREFER TO GO TO [facility] FOR EVEN JUST THOSE 4 DAYS SO HE CAN GET STRONGER. NAVEEN SPOKE WITH ADMISSIONS AT [facility] WHO STATES THEY CAN MEDICALLY ACCEPT PATIENT AND WILL SEEK AUTH ONCE THEY RECEIVE ALL CLINICAL. CM FAXED UPDATED CLINICAL AND PT EVAL IN ATTEMPTS TO GET THEM TO SEEK AUTH. NAVEEN ALSO SPOKE WITH PATIENTS EMEKA EATON TO UPDATE.
[2019-05-07 15:40] VITALS: BP 123/51
--- NOTE | 2019-05-07 18:39 | NUR ---
ASSUMED PATIENT CARE AT 0700. A/0X4. AMBULATED IN HALLWAY. POEGRESSING TOWARDS POC GOALS.
[2019-05-07 20:00] VITALS: BP 110/40
--- NOTE | 2019-05-08 02:50 | NUR ---
ASSESSMENT: PT REMAIN ALERT AMD ORIENT TIMES FOUR. GONZALEZ. UP IN THE CHAIR AT THE CHANGE OF SHIFT. REQUESTED XANAX FOR SLEEPING. AFTER GETTING IN THE CHAIR, PT SLEPT MOST OF THE NIGHT. VSS, AFEBRILE. AFIB PER MONITOR. DENIES PAIN, SOB AND N/V. LEFT HIP NOTED WITH INCISION INTACT. POSSIBLE DC TO REHAB TOMORROW. SLOW PROGRESS TOWARDS DC GOALS, WILL CONTINUE TO MONITOR.
[2019-05-08 04:51] VITALS: BP 109/50
[2019-05-08 07:45] VITALS: BP 108/57
[2019-05-08 10:03] LABS: HEMATOCRIT 26.8 % (42.0-52.0); MCH 31.4 pg (26.0-34.0); MCHC 33.5 g/dL (28.0-37.0); MCV 93.9 fL (80.0-100.0); RBC 2.86 mil/uL (4.50-6.00); RDW 19.7 % (10.5-14.5); WBC 8.6 thou/uL (4.0-11.0)
[2019-05-08 10:11] LABS: CALCIUM 7.6 mg/dL (8.5-10.1); CREATININE 1.5 mg/dL (0.7-1.3); POTASSIUM 3.9 mmol/L (3.5-5.1)
[2019-05-08 11:51] VITALS: BP 123/54
--- NOTE | 2019-05-08 12:45 | NUR ---
DISCHARGE ORDER RECEIVED. CHART COPIED PER ETL LEAD. ORDERS FAXED TO [facility], [facility] ADMISSIONS, VERIFIED RECEIVED. HCRLW TO TRANSPORT PATIENT, 1430. EMEKA EATON NOTIFIED AND AGREEABLE TO ALL. UNIT NOTIFIED AND CONTACT NUMBER FOR REPORT PORVIDED. UNIT CM/SW AWARE.
--- NOTE | 2019-05-08 14:34 | NUR ---
PT ALERT AND ORIENTED TIMES FOUR. VSS, 98%RA, SR ON TELE. PT DENIES PAIN/SOA AT THIS TIME. PT WORKED WELL WITH PT/OT TODAY. PT TOLERATES MEDS AND MEALS. PLANS FOR DISCHARGE TODAY.
== END 2019-05-08 15:25 | DRG 377 ==
LOC: ER 22:48 → EROBS 05-01 02:16 → 3W 05-01 02:16
PROVIDERS: Emergency Medicine; Hospitalist; Internal Medicine; Internal Medicine Gastroenterology; Nurse Practitioner; Nurse Practitioner Adult Health; Nurse Practitioner Family; ADMIT Hospitalist
PROC: 3E0G8GC Introduction of Other Therapeutic Substance into Upper GI, Via Natural or Artificial Opening Endoscopic (ICD-10-PCS; principal; 2019-05-01)
PROC: 0DB68ZX Excision of Stomach, Via Natural or Artificial Opening Endoscopic, Diagnostic (ICD-10-PCS; principal; 2019-05-01)
PROC: 30233N1 Transfusion of Nonautologous Red Blood Cells into Peripheral Vein, Percutaneous Approach (ICD-10-PCS; principal; 2019-05-01)
PROC: 0DJ08ZZ Inspection of Upper Intestinal Tract, Via Natural or Artificial Opening Endoscopic (ICD-10-PCS; 2019-05-06)
PROC: 0W3P8ZZ Control Bleeding in Gastrointestinal Tract, Via Natural or Artificial Opening Endoscopic (ICD-10-PCS; 2019-05-06)
DX: K26.4 Chronic or unspecified duodenal ulcer with hemorrhage (principal); I50.23 Acute on chronic systolic (congestive) heart failure; D62 Acute posthemorrhagic anemia; N18.4 Chronic kidney disease, stage 4 (severe); N17.9 Acute kidney failure, unspecified; E46 Unspecified protein-calorie malnutrition; N39.0 Urinary tract infection, site not specified; I13.0 Hypertensive heart and chronic kidney disease with heart failure and stage 1 through stage 4 chronic kidney disease, or unspecified chronic kidney disease; K29.71 Gastritis, unspecified, with bleeding; D72.829 Elevated white blood cell count, unspecified; E78.5 Hyperlipidemia, unspecified; I25.10 Atherosclerotic heart disease of native coronary artery without angina pectoris; I48.2 Chronic atrial fibrillation; M10.9 Gout, unspecified; I73.9 Peripheral vascular disease, unspecified; E86.0 Dehydration; B96.20 Unspecified Escherichia coli [E. coli] as the cause of diseases classified elsewhere; E83.42 Hypomagnesemia; H40.9 Unspecified glaucoma; Z68.30 Body mass index [BMI] 30.0-30.9, adult; Z86.73 Personal history of transient ischemic attack (TIA), and cerebral infarction without residual deficits; Z95.1 Presence of aortocoronary bypass graft; Z87.81 Personal history of (healed) traumatic fracture; Z87.891 Personal history of nicotine dependence; Z82.49 Family history of ischemic heart disease and other diseases of the circulatory system; Z79.82 Long term (current) use of aspirin; Z79.899 Other long term (current) drug therapy
CPT/HCPCS: 10879; 62110; 62900; 70005

== ENCOUNTER → 2019-07-11 | Outpatient (CLI) | payer OTHER ==
[~2019-07-11] MED LIST changes: +ACETAMINOPHEN325 M1 PO; +ALPRAZOLAM 0.0.25 M1 PO; +ASA5UEC PO; +BYSTOLIC2.5 MG PO; +CARAFATE 11 GM/10 M1 PO; +CEFUROXIME250 MG PO; +DEMADEX20 MG PO; +LIDOPATCH1 EACH TRANSDERM; +MIRALAX17 GM PO; +PROBIOTIC1 EAC1 PO; +PROTONIX40 M1 PO; +TIMOLOL GL0.5 %/5 M1 OPHTHALMIC; +ULORIC40 MG PO; +XALATAN2.5 ML OPHTHALMIC
[2019-07-11 09:25] VITALS: BP 99/54
[2019-07-11 09:51] VITALS: BP 99/54
[2019-07-11 10:35] VITALS: BP 137/55
[2019-07-11 10:55] VITALS: BP 135/58
--- NOTE | 2019-07-11 12:49 | NUR ---
PT HERE FOR 1ST OF 2 INJECTAFER INFUSIONS. REPORTS RECENT HOSPITALIZATION FOR GI BLOOD LOSS AND STATES WAS SCOPED AND AREAS TREATED. ALSO RECEIVED BLOOD TRANSFUSIONS AT THAT TIME. HAD RECENT HIP RX AND REPAIR WELL S/P FALL. COMPLETED A REHAB STAY AND IS NOW AT HOME WITH HOME HEALTH SERVICES: NURSING AND THERAPIES. PT REPORTS ONGOING ISSUES WITH DIARRHEA AND EATING. DENIES ANY DARK STOOLS OR SEEING BLOOD IN STOOLS. REPORTS FEELING WEAK AND OCCASIONALLY DIZZY. SPOKE WITH PT'S DTR-IN-LAW ABOUT THESE CONCERNS AND SHE SAYS THAT SHE AND PT'S SON ARE AWARE AND ADVOCATING FOR PT, SPEAKING WITH HIS PCP, DR. HORTON AND DR. PERAZA. PT TOLERATED INJECTAFER INFUSION WITHOUT INCIDENT. WATCHED FOR 30 MIN POST, ASSISTED TO BR TO VOID, THEN DISMISSED. VSS. PT TAKEN TO CAR PER W/C AND ASSISTED INTO CAR. ABLE TO TRANSFER EASILY WITH WALKER. SCHEDULED TO RETURN AGAIN NEXT FRI.
== END ==
LOC: OPONC 08:46
DX: D50.9 Iron deficiency anemia, unspecified (principal); T45.4X5D Adverse effect of iron and its compounds, subsequent encounter
CPT/HCPCS: 95000

== ENCOUNTER → 2019-07-18 | Outpatient (CLI) | payer OTHER ==
[2019-07-18 10:10] VITALS: BP 109/40
[2019-07-18 11:15] VITALS: BP 116/46
[2019-07-18 11:40] VITALS: BP 130/49
--- NOTE | 2019-07-18 13:37 | NUR ---
IN FOR 2ND INJECTAFER INFUSION. STATED HAD NO SIDE EFFECTS FROM 1ST DOSE 1 WEEK AGO. PATIENT FEELING VERY WEAK. DENIED FALLS. TOLERATED INFUSION WITHOUT INCIDENT. POST VITAL SIGNS STABLE. OBSERVED FOR 30 MINUTES AND THEN DISMISSED IN WEAK BUT STABLE CONDITION.
== END ==
LOC: OPONC 09:05
DX: D50.9 Iron deficiency anemia, unspecified (principal); T45.4X5A Adverse effect of iron and its compounds, initial encounter
CPT/HCPCS: 95000

== ENCOUNTER → 2019-07-31 | Outpatient (CLI) | payer OTHER ==
[~2019-07-31] VITALS: Ht 180.3 cm; Wt 79.4 kg
[~2019-07-31] MED LIST changes: +KLOR-CON M2020 MEQ PO; +LIPITOR 20 MG T20 M1 PO; +MAGOX 400400 MG PO; +NEURONTIN 300M300 M2 PO; +ZAROXOLYN 5MG TA5 MG PO
--- NOTE | 2019-08-01 16:06 | PATH ---
[facility] [address] [place] [address] PATHOLOGY RPT PROCEDURE Name: MANNY SHERIFF Room #: REG DAVID Kumar.#: [id number] Admission: 07/31/19 Date of : 38 Discharge: Report #: [id number] Path Case #: [id number] LCA Accession Number: [id number] . 01 Material submitted: . colon - RANDOM COLON BIOPSY TO R/O COLITIS . 01 Clinical history: . Ulcer, diarrhea . 02 Diagnosis: Large intestine mucosa, random colon, endoscopic biopsy: - Reactive hyperplastic changes with focal architectural abnormalities as well as lamina propria fibrosis compatible with nonspecific reactive changes (please see comment). - Negative for dysplasia or malignancy. (IUV:ivelisse; 08/01/2019) MBR 08/01/2019 1437 Local . 02 Comment: Examination shows mildly increased cellularity of the lamina propria associated with lymphocytes, plasma cells as well as macrophages in addition to eosinophils. The crypts as well as the surface epithelium show hyperplastic changes as well as focal architectural abnormalities. A rare focus of acute cryptitis is present. There are no crypt abscesses, granulomata, or viral inclusions present. Overall, findings are nonspecific and may represent a resolving episode of colitis, medication induced colitis, acute or chronic diverticulitis, as well as a resolving episode of infectious-type of colitis. Please correlate clinically and followup as indicated. (IUV:musical instruments assembler; 08/01/2019) . 02 Electronically signed: . Vi Ayala MD, Pathologist NPI- [id number] . 01 Gross description: . Received in formalin labeled "Manny Sheriff, random colon BX to rule out colitis," are multiple segments of gay soft tissue measuring 2.0 x 0.5 x 0.2 cm in aggregate dimensions. The specimen is filtered and entirely submitted in cassette A1. (TSD; 07/31/2019) TOB/TOB 07/31/20196 Local . 02 Pathologist provided ICD-10: K63.89, R19.7 . [address] [address] PATHOLOGY RPT PROCEDURE Name: AMNNY SHERIFF Room #: REG [facility] Saritha#: [id number] Admission: 07/31/19 Date of : 39 Discharge: Report #: [id number] Path Case #: [id number] CPT . 739571 Specimen Comment: A courtesy copy of this report has been sent to Specimen Comment: [phone], . Specimen Comment: Report sent to / DR HORTON Performed at: [address], [place], [place] [id number] MD Srikanth De Jesus MD Phone: [phone] Performed at: [address] [id number] MD Vi Ayala MD Phone: [phone]
--- NOTE | 2019-08-07 07:29 | P ---
[facility] [place] [address] [place] [address] PROCEDURE REPORT Name: NERY SHERIFF Room #: REG [facility]#: [id number] Admission: 07/31/19 Attend Phys: Hola Nieves MD Discharge: Date of : 39 Report #: [id number] THIS REPORT FOR: //name// CC: Flynn Nieves PROCEDURE: Flexible sigmoidoscopy. BRIEF HISTORY: The patient is an 79-year-old male with recent complaints of lower abdominal pain and diarrhea. PREOPERATIVE DIAGNOSES: Abdominal pain and diarrhea. POSTOPERATIVE DIAGNOSES: 1. Patchy nonspecific colitis, sigmoid colon. 2. Moderate sigmoid diverticulosis coli. MEDICATIONS: Deep sedation with propofol per anesthesia. SPECIMEN: Random biopsies of left colon and rectum. FINDINGS: Prior to propofol sedation, procedure of flexible sigmoidoscopy discussed with the patient as well potential risks, benefits, and complications. He indicates he understands and desires to proceed. DESCRIPTION OF PROCEDURE: With the patient in left lateral decubitus position, digital examination was completed, which revealed no abnormalities. Subsequently, Olympus video upper endoscope was inserted in the rectum, advanced under direct vision to the splenic flexure. At that point, the scope was slowly withdrawn and careful circumferential views were obtained. Upon slow withdrawal of the scope, the mucosa was inspected. The prep was reasonably good. The mucosa was within normal limits, normal vascular pattern, normal light reflex. However, in the sigmoid colon, there were some patchy areas of colitis with patchy erythema. There was some hypervascularity. However, the mucosa was intact without ulcers, erosions, mass lesions or bleeding. Random biopsies were obtained throughout including the patchy colitis areas. Distal to the descending colon, mucosa was normal. There was noted to be moderate sigmoid diverticular disease without endoscopic evidence of diverticulitis. Scope was withdrawn in the rectum and no abnormalities were seen. Upon retroflexion, no abnormalities were seen. Scope was withdrawn. The patient tolerated the procedure well. CONDITION OF THE PATIENT UPON DISCHARGE: Following procedure, the patient was drowsy and will be discharged home when fully ambulatory. INSTRUCTIONS TO THE PATIENT AND FAMILY AT THE TIME OF DISCHARGE: The patient [facility] [address] [place] [address] PROCEDURE REPORT Name: NERY SHERIFF [facility] [id number] Admission: 07/31/19 Attend Phys: Hola Nieves MD Discharge: Date of : 39 Report #: [id number] reported he had diarrhea, but he thinks it is better at this point in time. He does have some patchy mucosal changes and certainly possible he may have an acute self-limited process. We would treat symptomatically at this point in time as needed for diarrhea. We will follow up on biopsies and make further recommendations. <ELECTRONICALLY SIGNED> By: Hola Nieves MD 08/07/19 0729 1221 2117 Hola Nieves MD /nt
--- NOTE | 2019-08-07 07:29 | P ---
[facility] [place] [address] PROCEDURE REPORT Name: NERY SHERIFF Room #: REG [facility]#: [id number] Admission: 07/31/19 Attend Phys: Hola Nieves MD Discharge: Date of : 39 Report #: [id number] THIS REPORT FOR: //name// CC: Flynn Nieves DATE OF SERVICE: 07/31/2019 OUTPATIENT UPPER ENDOSCOPY REPORT. BRIEF HISTORY: The patient is an 79-year-old male who was admitted to [facility] early this year with GI bleeding requiring blood transfusions. He presents for EGD to confirm healing of ulcers after treatment. PREOPERATIVE DIAGNOSIS: Bleeding ulcers x 3. POSTOPERATIVE DIAGNOSES: 1. Persistent duodenal ulcer, nonbleeding. 2. Diffuse gastritis. MEDICATIONS: Deep sedation with propofol per anesthesia. SPECIMEN: None. ESTIMATED BLOOD LOSS: None. PROCEDURE: EGD. FINDINGS: Prior to propofol sedation, procedure of upper endoscopy was discussed with the patient as well as potential risks and its complications. He indicates he understands and desires to proceed. DESCRIPTION OF PROCEDURE: With the patient in left lateral decubitus position, digital examination was completed, which revealed no abnormalities. Subsequently, the Olympus video endoscope was inserted cervical esophagus under direct vision without difficulty. Examination of this organ through its entire length revealed normal esophageal mucosa down the squamocolumnar junction. The squamocolumnar junction was inspected and noted to be unremarkable. There was no evidence of esophagitis or hiatus hernia or bleeding lesions. Scope was advanced in the stomach, which was examined on end view as well as retroflexed views. There was a diffuse gastritis with a linear configuration, but no ulcers, erosions or blood. AVMs were not seen. Upon retroflexion, the mucosa was normal. No bleeding lesions were seen. No mass lesions were seen in the cardia. Previous biopsies for H. pylori were negative and those were not repeated today. Subsequently, the scope was advanced to the pylorus, which was [facility] [address] [place] [address] PROCEDURE REPORT Name: NERY SHERIFF Room #: REG [facility].#: [id number] Admission: 07/31/19 Attend Phys: Hola Nieves MD Discharge: Date of : 39 Report #: [id number] unremarkable. Duodenal bulb was unremarkable. However, at the junction of bulb and second portion of the duodenum around the angle, there was noted to be a significant portion of one of an ulcer crater was seen. The edges were heaped up. They were smooth and had a benign appearance. The base was flat without villous pattern. However, an obvious exudate was not seen. There was no stigmata of recent bleeding. Beyond this area, no additional ulcers were seen. The villous pattern was normal. At that point, the scope was slowly withdrawn and careful circumferential views confirmed the above findings. The patient tolerated the procedure well. CONDITION OF THE PATIENT UPON DISCHARGE: Following procedure, the patient was drowsy and he was then prepared for flexible sigmoidoscopy. INSTRUCTIONS TO THE PATIENT AND FAMILY AT THE TIME OF DISCHARGE: He does have residual ulcer crater. It is noted he does not have a PPI on his list of medicines at this time. We will discuss further with the patient. He does take aspirin daily. We will have him resume PPI daily. In view of his history of recurrent GI bleeding, he may benefit from long-term administration of PPI, especially since he does take aspirin. It is noted he does have AFib, but is only on aspirin at this time. We will proceed with flexible sigmoidoscopy at this time. <ELECTRONICALLY SIGNED> By: Hola Nieves MD 08/07/19 0729 1214 2117 Hola Nieves MD /nt
== END | disposition home or self-care (01) ==
LOC: GI 09:36
DX: K63.89 Other specified diseases of intestine (principal); K57.30 Diverticulosis of large intestine without perforation or abscess without bleeding; K29.70 Gastritis, unspecified, without bleeding; K26.3 Acute duodenal ulcer without hemorrhage or perforation; I11.0 Hypertensive heart disease with heart failure; I25.10 Atherosclerotic heart disease of native coronary artery without angina pectoris; I50.9 Heart failure, unspecified; I48.91 Unspecified atrial fibrillation; G47.30 Sleep apnea, unspecified; E78.5 Hyperlipidemia, unspecified; I73.9 Peripheral vascular disease, unspecified; M10.9 Gout, unspecified; Z86.73 Personal history of transient ischemic attack (TIA), and cerebral infarction without residual deficits; Z87.891 Personal history of nicotine dependence; Z95.1 Presence of aortocoronary bypass graft; Z79.01 Long term (current) use of anticoagulants; Z79.899 Other long term (current) drug therapy; Z98.890 Other specified postprocedural states; Z79.82 Long term (current) use of aspirin
CPT/HCPCS: 62110; 62900

== ENCOUNTER 2019-11-19 06:54 | Observation (INO) | payer OTHER ==
[2019-11-19] VITALS (10 sets, daily range): BP systolic 85–135; BP diastolic 28–73
[~2019-11-19] VITALS: Ht 180.3 cm; Wt 84.4 kg
--- NOTE | ~2019-11-19 | D ---
[facility] [place] [address] DISCHARGE SUMMARY Name: NERY SHERIFF Room #: 208-P [facility] Denice Melara#: [id number] Admission: 11/19/19 Attend Phys: Salazar Hernandez MD, Discharge: Date of : 39 Report #: [id number] THIS REPORT FOR: //name// CC: Kamar Hernandez [facility] COURSE: An 79-year-old male who was admitted for cardiac catheterization and carotid angiogram. Unfortunately, came in with a bump in his creatinine to 2.8. Because of the critical nature of the carotid, we did do a limited angiogram of the carotid artery, which revealed a high-grade stenosis. Dr. Huang performed this. I performed a right heart catheterization. I did not perform a left heart catheterization with significant elevation in pulmonary pressure 75/25. He was initially hydrated and given IV Lasix. Nephrology was consulted. His creatinine is down to 2.2 this morning. The left carotid is 80-90%. There was also dilatation of a high grade in-stent restenosis in a right renal artery with a balloon only. Minimal contrast was utilized for this. The patient has had coronary artery disease, prior bypass and stents. Some subtle stable angina. We will hold off on cardiac catheterization. He has been consulted by CV Surgery, Dr. Chamorro, for carotid endarterectomy. This is heavily calcified carotid, will be best served with an open procedure. There is also a 75% right subclavian, which we will follow. He will be discharged on his home medications. We will utilize torsemide 20 mg once a day. We will hold on AFUA and ARBs, Bystolic currently will be held prior and probably restarted a baby aspirin, atorvastatin 40, Valium p.r.n. No lifting for 48 hours or lying in tub, Jacuzzi or smith for a week. He has followup appointment scheduled with Dr. Chamorro to arrange a carotid endarterectomy. DISCHARGE DIAGNOSES: 1. High-grade left carotid stenosis, currently asymptomatic. We will proceed with carotid endarterectomy within the next month. 2. Coronary artery disease with prior coronary artery bypass grafting, stable angina. 3. Moderately severe pulmonary hypertension with volume overload, has improved with diuresis. 4. Acute on chronic kidney disease, baseline creatinine is approximately 2.0 range, 2.2 today. 5. 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 6. Peripheral vascular disease. Thank you for assisting in the care of this patient. By: 0912 1001 /nt
[2019-11-19] MEDS ORDERED: MAPAP500 MG PO (07:37)
[2019-11-19 07:38] LABS: HEMATOCRIT 36.2 % (42.0-52.0); HEMOGLOBIN 11.7 gm/dL (14.0-18.0); MCH 29.2 pg (26.0-34.0); MCHC 32.3 g/dL (28.0-37.0); MCV 90.3 fL (80.0-100.0); RDW 16.8 % (10.5-14.5); WBC 5.8 thou/uL (4.0-11.0)
[2019-11-19 07:41] LABS: CALCIUM 8.7 mg/dL (8.5-10.1); CREATININE 2.8 mg/dL (0.7-1.3); POTASSIUM 4.9 mmol/L (3.5-5.1)
[2019-11-19 07:47] LABS: ALBUMIN 3.8 g/dL (3.4-5.0); TOTAL PROTEIN 8.3 g/dL (6.4-8.2)
--- NOTE | 2019-11-19 08:13 | NUR ---
MD PIMENTEL AND KARMEN AWARE OF CREATINIE, 250 ML NS BOLUS INFUSING PER ORDER. CANCELLING HEART CATH, ONLY DOING CAROTID ANGIO. PT UPDATED ON POC, VERBALIZES UNDERSTANDING.
--- NOTE | 2019-11-19 12:25 | NUR ---
PT URINATED 200CC. POST VOID BLADDER SCAN SHOWED 498CC IN BLADDER. MD NINA PAGED PER REQUEST OF MD PERAZA.
--- NOTE | 2019-11-19 12:34 | NUR ---
MD JON RETURN THIS RNS PAGED. OK TO GIVE NICOLAS. MD DOMINGUEZKARMEN AWARE
--- NOTE | 2019-11-19 16:32 | NUR ---
PT CARE ASSUMED APPROX 1305. PT POST CATH. RIGHT GROIN SITE C/D/I AND NEGATIVE FOR HEMATOMA. ASSESSMENTS CHARTED. DENIES PAIN AND SOA. VSS. GAIT REMAINS UNASSESSED DUE TO ORDERED POST PROCEDURE BEDREST. CXR UNDONE DUE TO 2 VIEW ORDERED AND PT STILL ON BEDREST. WILL TAKE PT FOR XRAY ONCE BEDREST COMPLETE. DENIES PAIN. NO DISTRESS NOTED.
--- NOTE | 2019-11-19 17:13 | EKG ---
[place] [address] [facility] [employer] [place] [address] ELECTROCARDIOGRAM REPORT Name: NERY SHERIFF Room #: 208-P [facility] M.R.#: [id number] Admission: 11/19/19 Attend Phys: Salazar Hernandez MD, Discharge: Date of : 39 Report #: [id number] THIS REPORT FOR: //name// [facility] Test Date: 2019-11-19 Test Time: 13:42:40 Pat Name: NERY SHERIFF Department: Room: 208 Gender: M Banquet Director: Lori JONES : 1940 Requested By: Hola Chamorro Order Number: [id number] MD: Trevin Ch Measurements Intervals Glennie Rate: 54 P: OK: QRS: 6 QRSD: 177 T: 20 QT: 489 QTc: 464 Interpretive Statements Atrial fibrillation Right bundle branch block Compared to ECG 04/11/2019 09:54:04 No significant changes Electronically Signed On 11-19-2019 17:12:54 ROLLOFF DRIVER by Trevin Ch [email or web address] <ELECTRONICALLY SIGNED> By: Trevin Ch MD 11/19/19 1712 1342 134 Trevin Ch MD /ROBINSON
--- NOTE | 2019-11-19 17:40 | NUR ---
SOME OF PT'S POST CATH BPs WERE LOW. MAP <60MMHG SEVERAL TIMES. PT WAS INITIALLY ASYMPTOMATIC BUT AROUND 1700 PT BECAME SLIGHTLY DIZZY. LAUREN [employer]IT[employer] LEAD WAS NOTIFIED AND ORDERED FLUID BOLUS. FLUID BOLUS RUNNING AT THIS TIME. 250ML OVER 30MIN PER ORDER. PT BP ALREADY WNL. WILL ASSESS GAIT WITH PT AT 1800. PT AWARE NOT TO MOBILIZE UNTIL NURSE IS AT BEDSIDE. RIGHT GROIN POST CATH SITE C/D/I
[2019-11-20 00:15] VITALS: BP 116/43
[2019-11-20 04:45] VITALS: BP 134/65
--- NOTE | 2019-11-20 04:48 | NUR ---
ASSUMED CARE FROM DAY SHIFT PT RESTING IN BED , RT GROIN WITH 2X2 AND CLEAR DRESSING , DRY AND INTACT. 2/2 PULSES NOTED. PT UP TO BSC ATTEMPTED TO HAVE BOWEL MOVEMENT. PRUNE JUICE GIVEN. BULB SORTER SHOWS AFIB WITH HR 50'S. PT RESTED WELL THROUGHOUT HOURLY ROUNDS WILL CONTINUE WITH CURRENT PLAN OF CARE AND WILL REPORT CHANGES OR ABNORMAL FINDINGS.
[2019-11-20 05:12] LABS: APTT 32.7 Seconds (24.5-32.8); INR 1.2
[2019-11-20 05:20] LABS: CALCIUM 9.1 mg/dL (8.5-10.1); CREATININE 2.2 mg/dL (0.7-1.3); POTASSIUM 4.1 mmol/L (3.5-5.1)
[2019-11-20 05:23] LABS: HEMATOCRIT 34.8 % (42.0-52.0); HEMOGLOBIN 11.2 gm/dL (14.0-18.0); MCH 29.2 pg (26.0-34.0); MCHC 32.3 g/dL (28.0-37.0); MCV 90.5 fL (80.0-100.0); RBC 3.84 mil/uL (4.50-6.00); RDW 16.7 % (10.5-14.5); WBC 5.8 thou/uL (4.0-11.0)
[2019-11-20 06:05] LABS: URINE BILIRUBIN NEGATIVE (Negative); URINE BLOOD NEGATIVE (Negative); URINE CLARITY CLEAR; URINE COLOR YELLOW; URINE GLUCOSE-RANDOM* NEGATIVE (Negative); URINE KETONES NEGATIVE (Negative); URINE LEUKOCYTES-REFLEX NEGATIVE (Negative); URINE NITRITE-REFLEX NEGATIVE (Negative); URINE PROTEIN (DIPSTICK) NEGATIVE (Negative); URINE SPECIFIC GRAVITY 1.015 (1.005-1.035); URINE UROBILINOGEN 0.2 E.U./dl (0.2-1.0)
[2019-11-20 07:55] VITALS: BP 133/63
[2019-11-20 08:50] VITALS: BP 133/63
--- NOTE | 2019-11-20 10:13 | NUR ---
PT CARE ASSUMED APPROX 0700. ASSESSMENT CHARTED. DENIES PAIN AND SOA. VSS. UP WITH MIN ASSIST AND WALKER. RIGHT GROIN POST CATH SITE C/D/I. PT APPROVED FOR DISCHARGE AT THIS TIME. EDUCATION REVIEWED WITH PT AND HE DENIES QUESTIONS OR CONCERNS REGARDING POST HOSPITAL CARES AND F/U. IV OUT, TELE BOX OFF. STAFF AWAITING PHONE CALL THAT TRANSPORTATIO HAS ARRIVED FOR PT. TRANSPORTATION DUE TO ARRIVE IN 10-[address] PERAZA'S REPORT TO THIS NURSE, NURSING STAFF WILL ESCORT PT OUT TIMELY.
--- NOTE | 2019-11-21 16:47 | HC ---
[facility] [place] [address] CONSULTATION Name: NERY SHERIFF Room #: 208-P [facility] Denice Melara#: [id number] Admission: 11/19/19 Attend Phys: Salazar Hernandez MD, Discharge: 11/20/19 Date of : 39 Report #: [id number] THIS REPORT FOR: //name// CC: Kamar Hernandez DATE OF SERVICE: 11/19/2019 We were asked by Dr. Huang to see the patient. HISTORY OF PRESENT ILLNESS: The patient is an 79-year-old with carotid artery disease. The patient presents with a noninvasive study that shows a high velocity in the left internal carotid artery. The patient has a history of drop attacks including a fall several months ago when he broke a hip. The patient claims that this was related to loss of consciousness. There is no specific motor or sensory dysfunction as the patient has amnesia of the event per se. The carotid arteriogram was done today that shows 85% proximal left internal carotid stenosis, 60% right internal carotid stenosis, not felt to be flow limiting, 75% stenosis origin right subclavian artery, 80% stenosis and a renal artery that was a restenosis that was fixed. PAST MEDICAL HISTORY: Significant for coronary artery disease with previous coronary bypass, atrial fibrillation, hypertension, elevated cholesterol, small abdominal aortic aneurysm and COPD. PAST SURGICAL HISTORY: Includes CABG. SOCIAL HISTORY: The patient is a former smoker who quit in 1991. He quit smoking in 1991. ALLERGIES: Lortab. FAMILY HISTORY: Positive for stroke, hypertension, heart disease on mother's side and hypertension on the father's side. MEDICATIONS: At home includes aspirin, Lipitor, Neurontin, Xalatan eye drops, Bystolic, Protonix, potassium, Demadex, Ultram, Betimol. REVIEW OF SYSTEMS: CONSTITUTIONAL: No fever or chills. EYES: No recent vision change. HEENT: Denies headaches. New hearing problems. Nasal discharge. RESPIRATORY: Denies shortness of breath. CARDIAC: Denies chest pain. GASTROINTESTINAL: Denies nausea, vomiting. [facility] [address] [address] CONSULTATION Name: NERY SHERIFF Room #: 208-P [facility] Denice Melaar#: [id number] Admission: 11/19/19 Attend Phys: Salazar Hernandez MD, Discharge: 11/20/19 Date of : 38 Report #: [id number] GENITOURINARY: Denies urgency or frequency. MUSCULOSKELETAL: As mentioned broken hip related to fall 6 months ago. NEUROLOGIC: As mentioned drop attack leading to a broken hip. No lasting neurologic defects. ENDOCRINE: Denies goiter. Denies tremor. Denies diabetes. IMMUNOLOGIC: Denies rash or arthritides. PHYSICAL EXAMINATION: GENERAL: The patient looks his stated age of 79, is lying in bed, reasonably comfortable, eating a Kulwant cracker. VITAL SIGNS: Blood pressure 135/48, heart rate 64, respiratory rate 18, temperature 97, O2 sat 95. HEENT: Normocephalic. Pupils are round and equal. No arcus. No icterus. NECK: No mass, high pitched left carotid bruit. CHEST: Clear anteriorly. HEART: Rhythm irregular. ABDOMEN: Soft, no mass. EXTREMITIES: Bluish cast to the feet, appear to be related to venous insufficiency. I do not feel distal pulses. No edema. MUSCULOSKELETAL: No obvious bone or joint dysfunction or asymmetry or deformity. PSYCHIATRIC: Oriented. Has some insight into problem. ASSESSMENT: The patient has important left carotid artery disease with history of drop attacks and evidence for high-grade lesion. I have recommended left carotid endarterectomy. Risks and details were discussed. Options and alternatives were reviewed. The patient understands all this, but declines to make a decision at this point. The patient states that his is wheelchair bound and he uses a walker and he is not prepared to make a decision regarding surgery at this point. We have invited the patient to come to our office for full discussion. Thank you for the consult. <ELECTRONICALLY SIGNED> By: Hola Chamorro MD 11/21/19 1647 1646 0413 Hola Chamorro MD /nt
== END 2019-11-20 10:59 | disposition home or self-care (01) ==
LOC: CATH 06:54 → 2N 13:13 → CATH 16:18 → 2N 11-20 10:59
PROVIDERS: Nuclear Medicine Nuclear Cardiology; Nurse Practitioner Adult Health; Surgery Vascular Surgery; ADMIT Internal Medicine Cardiovascular Disease
DX: I25.10 Atherosclerotic heart disease of native coronary artery without angina pectoris (principal); I13.0 Hypertensive heart and chronic kidney disease with heart failure and stage 1 through stage 4 chronic kidney disease, or unspecified chronic kidney disease; I50.9 Heart failure, unspecified; I73.9 Peripheral vascular disease, unspecified; I48.20 Chronic atrial fibrillation, unspecified; I71.4 Abdominal aortic aneurysm, without rupture; J44.9 Chronic obstructive pulmonary disease, unspecified; N18.9 Chronic kidney disease, unspecified; I65.22 Occlusion and stenosis of left carotid artery

== ENCOUNTER 2020-01-09 06:00 | Inpatient (IN) | payer OTHER ==
[2020-01-05 12:05] LABS: HEMOGLOBIN 10.8 gm/dL (14.0-18.0); MCH 28.1 pg (26.0-34.0); MCHC 31.8 g/dL (28.0-37.0); MCV 88.3 fL (80.0-100.0); RBC 3.85 mil/uL (4.50-6.00); RDW 16.4 % (10.5-14.5); WBC 6.2 thou/uL (4.0-11.0)
[2020-01-05 12:13] LABS: URINE BILIRUBIN NEGATIVE (Negative); URINE BLOOD NEGATIVE (Negative); URINE CLARITY CLEAR; URINE COLOR YELLOW; URINE GLUCOSE-RANDOM* NEGATIVE (Negative); URINE KETONES NEGATIVE (Negative); URINE LEUKOCYTES-REFLEX NEGATIVE (Negative); URINE NITRITE-REFLEX NEGATIVE (Negative); URINE PROTEIN (DIPSTICK) NEGATIVE (Negative); URINE SPECIFIC GRAVITY 1.015 (1.005-1.035); URINE UROBILINOGEN 0.2 E.U./dl (0.2-1.0)
[2020-01-05 12:14] LABS: APTT 33.3 Seconds (24.5-32.8); INR 1.3; PROTIME 13.4 Seconds (9.3-11.4)
[2020-01-05 12:15] LABS: ALBUMIN 2.9 g/dL (3.4-5.0); CALCIUM 8.3 mg/dL (8.5-10.1); CREATININE 2.1 mg/dL (0.7-1.3); POTASSIUM 4.7 mmol/L (3.5-5.1); TOTAL BILIRUBIN 0.7 mg/dL (<0.1-1.0); TOTAL PROTEIN 6.3 g/dL (6.4-8.2)
[~2020-01-09] VITALS: Ht 180.3 cm; Wt 93.9 kg
[2020-01-09] VITALS (25 sets, daily range): BP systolic 97–134; BP diastolic 38–55
--- NOTE | ~2020-01-09 | HC ---
[facility] [place] [address] CONSULTATION Name: NERY SHERIFF Room #: 219-P ADM IN M.R.#: [id number] Admission: 01/09/20 Attend Phys: Hola Chamorro MD Discharge: Date of : 39 Report #: [id number] THIS REPORT FOR: cc: Azam Galindo MD,Kilo Martin MD, MD ~ CC: Azam Chamorro DATE OF SERVICE: 01/12/2020 HISTORY OF PRESENT ILLNESS: The patient is an 79-year-old white male who was admitted with severe left carotid artery stenosis and underwent carotid endarterectomy on 01/09/2020. Postoperative course was complicated by acute hypoxic respiratory failure. He has chronic atrial fibrillation. He has been on nasal prong O2, which is new for him. He complains of increased pain of both distal lower extremities and also has complaints involving his left shoulder with abduction. He does note a history of premorbid peripheral neuropathy involving his lower extremities. He denies any problems with his shoulder as far as arthritis or rotator cuff involvement. He has had slow functional progress with his mobility and we are seeing him in rehabilitation medicine consultation. PAST MEDICAL HISTORY: Includes coronary artery bypass grafting, chronic atrial fibrillation. He has had multiple cardiac stents, AAA, cataract, hernia repair, small-bowel obstruction and release, and triple bypass. FAMILY HISTORY: Includes heart disease, hypertension, and vascular disease. ALLERGIES: TYLENOL AND HYDROCODONE. SOCIAL HISTORY: Lives with his , in house, is in a wheelchair. He uses a fore-wheeled walker. He still drives. There are 2 steps in. REVIEW OF SYSTEMS: Did not offer any complaints of chest pain, shortness of breath, abdominal discomfort. PHYSICAL EXAMINATION: GENERAL: An 79-year-old slender tall white male some frustration with his condition. VITAL SIGNS: Last recorded temperature 97.5, pulse 81, respirations 18, and blood pressure 127/71. NEUROLOGIC: He is alert, nasal prong O2 is in place at 2 liters. HEENT: Facies appeared symmetric. EXTREMITIES: His functional range of motion of the right upper extremity without obvious focal weakness. Left upper extremity, he has pain with [facility] [address] [place] [address] CONSULTATION Name: NERY SHERIFF Room #: 219-P [facility] IN M.R.#: [id number] Admission: 01/09/20 Attend Phys: Hola Chamorro MD Discharge: Date of : 39 Report #: [id number] attempted abduction of that left shoulder. He notes discomfort over the deltoid area. There is no obvious swelling of the left shoulder. No erythema. He has functional range of motion and strength of the elbow with flexion, extension as well as wrist and hand movement. In his lower extremities, he has decreased distal sensation. Tone appeared to be intact. Strength is at least a grade 3+/5. Functionally, he has been max assist coming to stand 2-3 steps mod assist, front-wheeled walker. ASSESSMENT: An 79-year-old white male with the following problem list: 1. Left carotid artery stenosis, status post carotid endarterectomy 01/09/2020. 2. Acute hypoxic respiratory failure. Continuing on nasal prong O2. 3. Left shoulder complaints likely a strain versus some rotator cuff involvement. We will check a shoulder x-ray. 4. History of peripheral neuropathy with lower extremity pain complaints. 5. Coronary artery bypass grafting in the past. 6. Prior history of abdominal aortic aneurysm. 7. Chronic atrial fibrillation. 8. Premorbid fore-wheeled walker ambulator. PLAN: We will obtain a left shoulder x-ray as noted above. Occupational therapy is to evaluate. Rehab therapy options will need to be considered. I think he utilized that left shoulder a lot with transfers and the use of the fore-wheeled walker and basic mobility and the discomfort is inhibiting his overall function. Rehab therapy issues will need to be considered. We will be glad to follow along with you. By: 1025 1410 Kilo Downs MD /nt
[~2020-01-09 06:00] MED LIST changes: +ASA81BEC PO; +MAPAP500 MG PO; +PANTOPRAZOLE SO40 M1 PO
[2020-01-10] VITALS (17 sets, daily range): BP systolic 105–143; BP diastolic 46–62
[2020-01-10 06:00] LABS: HEMATOCRIT 30.4 % (42.0-52.0); HEMOGLOBIN 10.1 gm/dL (14.0-18.0); MCHC 33.3 g/dL (28.0-37.0); MCV 87.2 fL (80.0-100.0); RBC 3.49 mil/uL (4.50-6.00); RDW 16.4 % (10.5-14.5)
[2020-01-10 06:08] LABS: CREATININE 1.3 mg/dL (0.7-1.3); POTASSIUM 4.1 mmol/L (3.5-5.1)
[2020-01-11] VITALS: BP 118/64
[2020-01-11 01:37] VITALS: BP 111/65
[2020-01-11 04:27] LABS: HEMATOCRIT 29.8 % (42.0-52.0); HEMOGLOBIN 9.7 gm/dL (14.0-18.0); MCH 28.5 pg (26.0-34.0); MCHC 32.4 g/dL (28.0-37.0); MCV 87.9 fL (80.0-100.0); RBC 3.4 mil/uL (4.50-6.00); RDW 16.6 % (10.5-14.5); WBC 11.7 thou/uL (4.0-11.0)
[2020-01-11 04:43] LABS: ALBUMIN 2.1 g/dL (3.4-5.0); CALCIUM 8.3 mg/dL (8.5-10.1); CREATININE 1.5 mg/dL (0.7-1.3); MAGNESIUM 1.1 mg/dL (1.8-2.4); POTASSIUM 3.9 mmol/L (3.5-5.1); TOTAL BILIRUBIN 0.7 mg/dL (<0.1-1.0); TOTAL PROTEIN 5.5 g/dL (6.4-8.2)
[2020-01-11 07:40] VITALS: BP 105/44
--- NOTE | 2020-01-11 08:46 | O ---
[facility] [place] [address] OPERATIVE REPORT Name: NERY SHERIFF Room #: 219-P ADM IN M.R.#: [id number] Admission: 01/09/20 Attend Phys: Hola Chamorro MD Discharge: Date of : 39 Report #: [id number] THIS REPORT FOR: cc: Azam Galindo MD,Azam Chamorro,Hola Camacho MD ~ CC: Azam Chamorro DATE OF SERVICE: 01/09/2020 PREOPERATIVE DIAGNOSIS: Left carotid artery stenosis. POSTOPERATIVE DIAGNOSIS: Left carotid artery stenosis. OPERATION: Left carotid endarterectomy with patch closure. SURGEON: Hola Chamorro MD ANESTHESIA: General. INDICATIONS: The patient is an 79-year-old seen for Dr. Hernandez and Dr. Huang. The patient has high-grade carotid artery disease with left side being 90% or so, on the right side, a moderate in the 40-60 range. FINDINGS AND TECHNIQUE: After general anesthesia was established, an incision was made in the left neck. Common facial vein was divided. Common internal and external carotid arteries were identified and controlled as was the superior thyroid artery. 10,000 units of heparin were given. Continuous electroencephalographic monitoring was performed during the operation when the carotid vessels were occluded, no EEG changes were noted. The carotid arteriotomy was made. The endarterectomy was performed without creating a distal flap. Needle, instrument was inspected and all loose debris was removed. Tacking sutures were placed at the transition zone. When the endarterectomy was deemed satisfactory, the arteriotomy was closed with running Prolene and a thin walled pericardial patch. The carotid vessels were backbled and the artery was irrigated with heparinized saline. Flow was reestablished first through the external, then the internal carotid artery. Protamine was given to reverse the heparin. Hemostasis was ascertained. When hemostasis was satisfactory, a drain was brought out through the bottom pole of the incision and the wound was closed in layers. The patient was taken [address] [address] OPERATIVE REPORT Name: NERY SHERIFF Room #: 219-P [facility] IN .R.#: [id number] Admission: 01/09/20 Attend Phys: Hola Chamorro MD Discharge: Date of : 39 Report #: [id number] to the recovery area where his neurologic progress was monitored. All counts were reported as correct. <ELECTRONICALLY SIGNED> By: Hola Chamorro MD 01/11/20 0846 1033 1050 Hola Chamorro MD /nt
[2020-01-11 11:30] VITALS: BP 104/48
[2020-01-11 15:30] VITALS: BP 126/66
[2020-01-11 20:30] VITALS: BP 113/45
[2020-01-12 04:45] VITALS: BP 116/43
[2020-01-12 05:31] LABS: ABSOLUTE NEUTROPHILS 8.7 thou/uL (1.4-8.2); BASOPHILS 0.2 % (0.0-2.0); EOSINOPHILS 0.2 % (0.0-3.0); HEMATOCRIT 30.5 % (42.0-52.0); HEMOGLOBIN 9.8 gm/dL (14.0-18.0); LYMPHOCYTES 5.7 % (24.0-44.0); MCH 28.2 pg (26.0-34.0); MCHC 32.2 g/dL (28.0-37.0); MCV 87.6 fL (80.0-100.0); MONOCYTES 6.8 % (1.0-8.0); PLATELET COUNT 96 thou/uL (150-400); POLYS 87.1 % (36.0-66.0); RBC 3.48 mil/uL (4.50-6.00); RDW 16.2 % (10.5-14.5)
[2020-01-12 05:55] LABS: CALCIUM 8.9 mg/dL (8.5-10.1); CREATININE 1.6 mg/dL (0.7-1.3); POTASSIUM 3.9 mmol/L (3.5-5.1)
[2020-01-12 08:00] VITALS: BP 127/71
[2020-01-12 12:50] VITALS: BP 141/69
[2020-01-12 15:50] VITALS: BP 136/51
--- NOTE | 2020-01-12 17:09 | PATH ---
[facility] [address] [place] [address] PATHOLOGY RPT PROCEDURE Name: MANNY SHERIFF Room #: 219-P ADM IN M.R.#: [id number] Admission: 01/09/20 Date of : 39 Discharge: Report #: [id number] Path Case #: [id number] [facility] Accession Number: [id number] . 01 Material submitted: . carotid body - LEFT CAROTID PLAQUE. Modifiers: left . 01 Clinical history: . Disorder of arteries and arterioles, unspecified . 02 Diagnosis: Left carotid plaque, endarterectomy: - Consistent with calcific atherosclerotic plaque material. (IUV:pit 01/12/2020) QTP 01/12/2020 1402 Local . 02 Electronically signed: . Vi Ayala MD, Pathologist NPI- [id number] . 01 Gross description: . The specimen is received in formalin, labeled "Manny Sheriff, left carotid plaque" and consists of a rubbery to calcified segment of yellow orange tissue measuring 3.4 x 2.0 x 1.1 cm. Sectioning reveals a stenotic calcified lumen. Groundskeeping Maintenance Worker sections are submitted in A1 following the calcification. (SDY; 01/09/2020) SYU/SYU 01/09/2020 1640 Local . 02 Pathologist provided ICD-10: I77.9 . 02 CPT . 844176 Specimen Comment: A courtesy copy of this report has been sent to [phone] Specimen Comment: [phone] Specimen Comment: Report sent to / DR SCALES Performed at: [address], [place] [id number] MD Srikanth De Jesus MD Phone: [phone] Performed at: [address] [id number] MD Vi Ayala MD Phone: [phone]
[2020-01-12 19:39] VITALS: BP 118/60
[2020-01-13 03:32] VITALS: BP 111/46
[2020-01-13 08:43] VITALS: BP 103/73
[2020-01-13 12:50] VITALS: BP 119/59
[2020-01-13 14:15] VITALS: BP 98/46
[2020-01-13 16:30] VITALS: BP 125/75
[2020-01-13 20:10] VITALS: BP 104/54
[2020-01-14 00:15] VITALS: BP 114/53
[2020-01-14 04:45] VITALS: BP 103/58
[2020-01-14 05:52] LABS: HEMATOCRIT 29.3 % (42.0-52.0); HEMOGLOBIN 9.5 gm/dL (14.0-18.0); MCH 28.3 pg (26.0-34.0); MCHC 32.3 g/dL (28.0-37.0); MCV 87.4 fL (80.0-100.0); RBC 3.35 mil/uL (4.50-6.00); RDW 16.4 % (10.5-14.5); WBC 6.2 thou/uL (4.0-11.0)
[2020-01-14 06:10] LABS: CALCIUM 8.7 mg/dL (8.5-10.1); CREATININE 1.6 mg/dL (0.7-1.3); MAGNESIUM 1.4 mg/dL (1.8-2.4); POTASSIUM 4.3 mmol/L (3.5-5.1)
[2020-01-14 08:40] VITALS: BP 118/54
[2020-01-14 11:59] VITALS: BP 125/74
== END 2020-01-14 15:15 | DRG 37 ==
LOC: 2N 06:00 → TBA 06:00 → PRE 07:36 → ICU 15:14 → PRE 15:19 → 2N 01-10 22:13
PROVIDERS: Internal Medicine; Nurse Practitioner; ADMIT Surgery Vascular Surgery
PROC: 03U Upper Arteries, Supplement (ICD-10-PCS; principal; 2020-01-09)
PROC: 03CJ0ZZ Extirpation of Matter from Left Common Carotid Artery, Open Approach (ICD-10-PCS; principal; 2020-01-09)
PROC: 03UJ07Z Supplement Left Common Carotid Artery with Autologous Tissue Substitute, Open Approach (ICD-10-PCS; principal; 2020-01-09)
PROC: 03CL0ZZ Extirpation of Matter from Left Internal Carotid Artery, Open Approach (ICD-10-PCS; principal; 2020-01-09)
PROC: 03CN0ZZ Extirpation of Matter from Left External Carotid Artery, Open Approach (ICD-10-PCS; principal; 2020-01-09)
PROC: 03UL07Z Supplement Left Internal Carotid Artery with Autologous Tissue Substitute, Open Approach (ICD-10-PCS; principal; 2020-01-09)
DX: I65.22 Occlusion and stenosis of left carotid artery (principal); J96.01 Acute respiratory failure with hypoxia; I48.20 Chronic atrial fibrillation, unspecified; I50.22 Chronic systolic (congestive) heart failure; D62 Acute posthemorrhagic anemia; I71.4 Abdominal aortic aneurysm, without rupture; G62.9 Polyneuropathy, unspecified; I25.10 Atherosclerotic heart disease of native coronary artery without angina pectoris; E78.00 Pure hypercholesterolemia, unspecified; G47.33 Obstructive sleep apnea (adult) (pediatric); E83.42 Hypomagnesemia; Z99.81 Dependence on supplemental oxygen; Z95.1 Presence of aortocoronary bypass graft; Z95.5 Presence of coronary angioplasty implant and graft; Z82.49 Family history of ischemic heart disease and other diseases of the circulatory system; Z88.5 Allergy status to narcotic agent; Z79.899 Other long term (current) drug therapy
CPT/HCPCS: 10078; 10081; 47375; 50010; 50101; 50386; 50417; 50455; 51301; 51751; 54118; 56524; 56526; 56528; 56531; 56534; 57254; 62110; 62900; 65020; 65040; 70005

== ENCOUNTER → 2020-05-27 | Outpatient (CLI) | payer OTHER | LOC: SJCVC 13:40 | PROVIDERS: ATTEND Internal Medicine Cardiovascular Disease | DX: I45.10 Unspecified right bundle-branch block (principal); I48.20 Chronic atrial fibrillation, unspecified; R94.31 Abnormal electrocardiogram [ECG] [EKG]; I25.810 Atherosclerosis of coronary artery bypass graft(s) without angina pectoris; I71.4 Abdominal aortic aneurysm, without rupture; I73.9 Peripheral vascular disease, unspecified; I10 Essential (primary) hypertension; E78.00 Pure hypercholesterolemia, unspecified; G47.33 Obstructive sleep apnea (adult) (pediatric); J44.9 Chronic obstructive pulmonary disease, unspecified; M10.9 Gout, unspecified; Z98.890 Other specified postprocedural states; Z79.899 Other long term (current) drug therapy; Z82.49 Family history of ischemic heart disease and other diseases of the circulatory system; Z95.1 Presence of aortocoronary bypass graft; Z87.891 Personal history of nicotine dependence ==

== ENCOUNTER 2020-08-10 21:30 | Inpatient (IN) | payer OTHER, MEDICAID ==
[~2020-08-10] VITALS: Ht 180.3 cm; Wt 79.9 kg
--- NOTE | ~2020-08-10 | EMS ---
[address] [address] EMS Patient Care Report Name: NERY SHERIFF Room #: REG Saritha#: [id number] Admission: 08/10/20 Attend Phys: Discharge: Date of : 39 Report #: [id number] THIS REPORT FOR: //name// Report Transmitted: 08/10/2020 23:00 EMS Care Summary [facility] MED-ACT Incident [id number] @ 08/10/2020 20:52 Incident Location [address] [place] [address] Patient NERY SHERIFF Male, 80 Years 1940 Patient Address [address] [place] [address] Patient History Congestive Heart Failure (CHF),Atrial Fibrillation, Patient Allergies No known allergies, Patient Medications Furosemide, Atorvastatin, Chief Complaint Decreaed cordination Disposition Transported No Lights/[place] Dispatch Reason Falls Transported To [facility] Narrative [id number] dispatched for an 80 y/o male fall. Arrived on scene, pt contact made by fire crew prior to our arrival. Initially dispatched as a lift assist, but with this being his 3rd fall in 24 hours, his son on the phone convinced him to be seen in ER. Pt contact made in bedroom in home on 1st floor. Pt sitting on [address] [address] EMS Patient Care Report Name: NERY SHERIFF Room #: REG ER Saritha#: [id number] Admission: 08/10/20 Attend Phys: Discharge: Date of : 39 Report #: [id number] bed upon our arrival, sat up from floor by fire prior to EMS contact. Pt is denying any pain or injury. Pt's falls were a result of 1. leaning too far for a cup of water while on kitchen table and losing balance. 2. Tripping on slippers which slide off foot. 3. Moving too fast. Pt denies any syncopal episode or any other factor that may have contributed to fall. Pt denied hitting his head during any falls or suffering any injury. Able to assist pt to standing position, pt uses walker to walk to cot. Describes ambulatory status as, "pretty much normal, maybe a little weaker if you're pressing." Pt able to walk to cot, secured to cot and moved to back of unit. Enroute to [facility] per pt request. Vitals, assessment and secondary vitals conducted enroute. Radio report given to [facility] 6 min SALES BRANCH MANAGER. Arrived at [facility], moved pt inside via cot transport. Onto ER bed via 3 person lift and move. Gave report to receiving RN and transferred care. Suraj Treviño Triage Clinician Initial Vitals @21:21P: 89,BP: 138/83,SpO2: 88, @21:14P: 57,R: 16,BP: 178/78,Pain: 0/10,GCS: 15,SpO2: 87,Revised Trauma: 12, Assessments @21:16MENTAL:Person Oriented,Time Oriented,Event Oriented,Place Oriented,SKIN:HEENT:Head/Face: No Abnormalities,Neck/Airway: No Abnormalities,LUNG SOUNDS:General: No Abnormalities,ABDOMEN:General: No Abnormalities,PELVIS//GI:No Abnormalities,EXTREMITIES:Left Arm: No Abnormalities,Right Arm: No Abnormalities,Left Leg: No Abnormalities,Right Leg: No Abnormalities,PULSE:Radial: 2+ Normal,NEURO:No Abnormalities, Impression Generalized Weakness Procedures @21:16ALS AssessmentResponse: UnchangedSucceeded Timeline 20:48,Call Received 20:48,Psap Call 20:52,Dispatched 20:54,En Route 21:00,On Scene 21:01,At Patient 21:12,Depart Scene 21:14,BP: 178/78 M,PULSE: 57,RR: 16 R,SPO2: 87 Ox,ETCO2: ,BG: ,PAIN: 0,GCS: 15, 21:16,ALS Assessment,Response: UnchangedSucceeded, [address] [address] EMS Patient Care Report Name: NERY SHERIFF Room #: REG Saritha#: [id number] Admission: 08/10/20 Attend Phys: Discharge: Date of : 39 Report #: [id number] 21:21,BP: 138/83 M,PULSE: 89,RR: R,SPO2: 88 Ox,ETCO2: ,BG: ,PAIN: ,GCS: , 21:25,At Destination 21:29,Transfer Patient 21:35,Call Closed Disclaimer v1.1 Copyright 2020 [employer] This EMS Care Summary contains data elements from the applicable legal record (which may be displayed differently). It is designed to provide pertinent information for the following purposes: continuity of care, clinical quality, and state data reporting. The complete legal record is available to ED staff and administrators of the receiving hospital in [employer] Patient Tracker. All data is provided "as is."
[2020-08-10 21:30] VITALS: BP 120/64
[2020-08-10 22:22] LABS: ABSOLUTE NEUTROPHILS 8.6 thou/uL (1.4-8.2); EOSINOPHILS 3.6 % (0.0-3.0); HEMATOCRIT 34.3 % (42.0-52.0); HEMOGLOBIN 11.5 gm/dL (14.0-18.0); LYMPHOCYTES 6.6 % (24.0-44.0); MCH 30.3 pg (26.0-34.0); MCHC 33.5 g/dL (28.0-37.0); MCV 90.3 fL (80.0-100.0); PLATELET COUNT 184 thou/uL (150-400); POLYS 82.8 % (36.0-66.0); RDW 15.8 % (10.5-14.5); WBC 10.5 thou/uL (4.0-11.0)
[2020-08-10 22:23] LABS: URINE BILIRUBIN NEGATIVE (Negative); URINE BLOOD NEGATIVE (Negative); URINE CLARITY CLEAR; URINE COLOR YELLOW; URINE GLUCOSE-RANDOM* NEGATIVE (Negative); URINE KETONES NEGATIVE (Negative); URINE LEUKOCYTES-REFLEX NEGATIVE (Negative); URINE NITRITE-REFLEX NEGATIVE (Negative); URINE PROTEIN (DIPSTICK) NEGATIVE (Negative); URINE UROBILINOGEN 0.2 E.U./dl (0.2-1.0)
[2020-08-10 22:35] LABS: ANION GAP 10 mmol/L (7-16); BUN 33 mg/dL (7-18); CHLORIDE 95 mmol/L (98-107); CO2 26 mmol/L (21-32); CREATININE 1.9 mg/dL (0.7-1.3); GLUCOSE 149 mg/dL (74-106); POTASSIUM 4.3 mmol/L (3.5-5.1); SODIUM 131 mmol/L (136-145)
[2020-08-10 22:45] LABS: MAGNESIUM 1.5 mg/dL (1.8-2.4); SGOT 20 U/L (15-37); SGPT 16 U/L (30-65); TOTAL BILIRUBIN 0.7 mg/dL (0.2-1.0); TOTAL PROTEIN 7.2 g/dL (6.4-8.2); TROPONIN-I <0.06 ng/mL (<0.06)
[2020-08-10] MEDS ORDERED: METOLAZONE 5 MG5 MG PO (23:59)
[2020-08-11] VITALS (7 sets, daily range): BP systolic 103–150; BP diastolic 53–75
--- NOTE | 2020-08-11 05:24 | NUR ---
Pt admitted from ED with Falls/low mag at 033. A/OX4,VSS. Pt requires moderate assist with transfers d/t weakness&tremors reports he has not been walking a lot last couple days but normally uses a walker at home. 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 Reports wearing a CPAP at night at home sometimes but declined need for one here Sats ok on RA. Redness noted on periarea,moisture barrier applied. Pt prefers to leave the urinal in palce when laying down,condom catheter offered but pt hesitant at this time. IVF infusing via L wrist w/o problems. Fall precautions in place,agrees to call for help as needed. Will continue to monitor pt.
--- NOTE | 2020-08-11 07:46 | EKG ---
[facility] [place] [address] ELECTROCARDIOGRAM REPORT Name: NERY SHERIFF Room #: 458-P ADM IN M.R.#: [id number] Admission: 08/11/20 Attend Phys: Manjit Moreira MD Discharge: Date of : 39 Report #: [id number] THIS REPORT FOR: cc: Azam Galindo MD, Christopher B. MD Lundgren,Parker Maldonado MD [facility] ~ THIS REPORT FOR: //name// [facility] Test Date: 2020-08-11 Test Time: 07:42:47 Pat Name: NERY SHERIFF Department: Room: 458 P Gender: M Overedger: MAYNOR : 1940 Requested By: Sharita Headley Order Number: [id number] MD: Parker Goodwin Measurements Intervals [place] Rate: 88 P: [place]: QRS: -27 QRSD: 147 T: 5 QT: 389 QTc: 471 Interpretive Statements Atrial fibrillation Right bundle branch block Artifact in multiple lead(s) Compared to ECG 08/11/2020 00:05:24 No significant changes Electronically Signed On 08-11-2020 7:46:43 CDT by Parker Goodwin [email or web address] <ELECTRONICALLY SIGNED> By: Parker Goodwin MD, [facility] 08/11/20 0746 1 Parker Goodwin MD, [facility] /EPI
--- NOTE | 2020-08-11 11:47 | NUR ---
PT ADMITTED RELATED TO FALLS AND LOW MAGNESIUM. CM REVIEWED CHART AND SPOKE WITH CARE TEAM. CM CALLED AND SPOKE WITH PT AT BEDSIDE THIS DAY. PT APPEARED TO BE A&O X4. CM ROLE INTRODUCED. PT INDICATED HE LIVES IN A HOUSE WITH HIS SIG OTHER WITH 2 STEPS TO ENTER AND NO STEPS INSIDE. PT INDICATED HE HAD BEEN USING A FWW TO ASSIST WITH MOBILITY AT HOME. PT INIDCATED HE HADN'T HAD HOME HEALTH IN THE PAST BUT FAIRLY CERTAIN HE HAS. CM CALLED PT'S SON UMA AND HE INDICATED HE FELT THAT PT WOULD BENEFIT FROM POST ACUTE CARE STAY. HE INIDCATED THAT PT HAS [employer] HCBS THROUGH A COMPANY CALLED [employer] 5 DAYS A WEEK 4-5 HRS PER DAY. TANNER IS THE CONTACT. CM TO FOLLOW INDICATED WITH DC PLANNING.
--- NOTE | 2020-08-11 13:06 | NUR ---
Assumed pt care at 7am.Assessment completed.vss.Pt did not get breakfast.guest services assistant notified and late tray delivered.Am meds given with breakfast and well tolerated.Dr Hoffman here,order noted.Received call from pt's son updates given.Fall bundle in place. Ot and Pt eval done today.Pt refused dc to in pt rehab but dpoa said that he will convince pt to go.Pt up in chair at present for dinner. Will continue to monitor.
--- NOTE | 2020-08-11 15:18 | EKG ---
[facility] [place] [address] ELECTROCARDIOGRAM REPORT Name: NERY SHERIFF Room #: 458-P ADM IN M.R.#: [id number] Admission: 08/11/20 Attend Phys: Manjit Moreira MD Discharge: Date of : 39 Report #: [id number] THIS REPORT FOR: cc: Azam Galindo MD, Christopher B. MD Santiago, Patrick MD [facility] ~ THIS REPORT FOR: //name// [facility] ED Test Date: 2020-08-11 Test Time: 00:05:24 Pat Name: NERY SHERIFF Department: Room: [facility] Gender: M City Constable: JACLYN : 1940 Requested By: Yasmani Hunt Order Number: [id number] MD: Quique Wiseman Measurements Intervals [place] Rate: 86 P: [place]: QRS: -16 QRSD: 160 T: 16 QT: 414 QTc: 496 Interpretive Statements Atrial fibrillation Right bundle branch block Compared to ECG 11/19/2019 13:42:40 No significant changes Electronically Signed On 08-11-2020 15:18:37 CDT by Quique Wiseman [email or web address] <ELECTRONICALLY SIGNED> By: Quique Wiseman MD, FACC 08/11/20 1518 0005 0005 Quique Wiseman MD, [facility] /EPI
[2020-08-12] VITALS (7 sets, daily range): BP systolic 95–126; BP diastolic 40–64
--- NOTE | 2020-08-12 04:47 | NUR ---
Assumed pt care at 1900. A/OX4,VSS. Denies pain on assessment,up with AX1,RW/GB w/slow gait noted but doing better than on admission. Afib on telemetry. Voiding per urinal,pt had a large BM at HS declined need for MOM as ordered. Fall precautions in place,call light/personal items within reach.Will continue to monitor pt.
[2020-08-12 05:07] LABS: GLYCOHEMOGLOBIN (HGB A1C) 5.3 % (4.8-5.6)
[2020-08-12 05:52] LABS: HEMATOCRIT 30.5 % (42.0-52.0); HEMOGLOBIN 10.5 gm/dL (14.0-18.0); MCH 31.1 pg (26.0-34.0); MCHC 34.3 g/dL (28.0-37.0); MCV 90.8 fL (80.0-100.0); RBC 3.36 mil/uL (4.50-6.00); RDW 15.3 % (10.5-14.5); WBC 8.3 thou/uL (4.0-11.0)
[2020-08-12 06:12] LABS: CALCIUM 8.6 mg/dL (8.5-10.1); CREATININE 1.6 mg/dL (0.7-1.3); MAGNESIUM 1.7 mg/dL (1.8-2.4); POTASSIUM 3.9 mmol/L (3.5-5.1)
[2020-08-12 06:13] LABS: CHOLESTEROL 95 mg/dL (<200); HDL CHOLESTEROL 37 mg/dL (>40); LDL CHOLESTEROL 52 mg/dL (<100); TC:HDL 2.6 Ratio (Not establshd); TRIGLYCERIDE 31 mg/dL (<150); VLDL 6 mg/dL (<40)
[2020-08-12 06:29] LABS: SERUM ASSESSMENT Clear
--- NOTE | 2020-08-12 13:49 | NUR ---
CM FOLLOWED UP WITH PT AND SON UMA THIS AM AGAIN REITERATED THAT [facility] AND [facility] ARE OON WITH HIS INSURANCE. CM PROVIDED ALL IN NETWORK FACILITIES AND SON INDICATED THEY WOULD BE INTERESTED IN [place] [facility] IN [place] OR [place]. PT INDICATED HE WAS INTERESTED IN [place]. REFERRAL SENT TO [facility] FOR REVIEWE FOR POSSIBLE ADMISSION. COVID TEST ORDERED. PT TO HAVE MRI TODAY. CM TO FOLLOW INDICATED WITH DC PLANNING.
--- NOTE | 2020-08-12 15:24 | NUR ---
CM HEARD BACK FROM [place] THEY INDICATED THAT PT'S [facility] MEDICARE DUAL COMPLETE IS A KRISTY MEDICAID PRODUCT AND THEY DON'T TAKE IT. CM CALLED A SHANEL GALLEGO WHO IS WITH PT'S INSURANCE AND WHO HAD INDICATED THEY MIGHT BE ABLE TO ASSIST WITH DC NEEDS. AT REFERANCE NUMBER [id number]. CM LEFT VM. CM TO FOLLOW INDICATED WITH DC PLANNING.
[2020-08-12 16:44] LABS: ABSOLUTE RETIC COUNT 0.0268 10^6/uL; OBSERVED RETIC COUNT 0.78 % (0.6-2.6)
[2020-08-12 16:49] LABS: % SATURATION 21 % (20-39); IRON 33 ug/dL (65-175); TIBC 160 ug/dL (250-450)
--- NOTE | 2020-08-12 19:18 | NUR ---
Pt in and out of bed to chair or bsc today.Assessment completed.Vss.Pt left for mri and carotid artery early today and report was posted in pci.Pt refused dc to in pt rehab but his insurance was out of network anyway.Pt will possibly dc to snf in am.Covid 19 test done today and will be resulted in am.Pt up in chair at present watching tv.Report off to leonardo laird.
--- NOTE | 2020-08-13 04:10 | NUR ---
ASSUMED CARE OF PT AT 1900HRS. PT AOX4 AND LETS NEEDS BE KNOWN. FALL PRECAUTION IN PLACE. PT DENIED PAIN, NAUSEA AND SOA. PT IS STILL WEAK AND TREMMORS. ASSESSMENT CHARTED. PT WAS ABLE TO GET COMFORTABLE AND SLEEP PART OF THE SHIFT. VSS AND NO S/S OF ACUTE DISTRESS. PT PLACED NPO AT [place] PER ORDER. WILL CONTINUE TO MONITOR.
[2020-08-13 06:41] LABS: ALBUMIN 2.6 g/dL (3.4-5.0); CALCIUM 8.7 mg/dL (8.5-10.1); CREATININE 1.5 mg/dL (0.7-1.3); PHOSPHORUS 2.1 mg/dL (2.5-4.9); POTASSIUM 3.7 mmol/L (3.5-5.1)
[2020-08-13 07:39] VITALS: BP 130/84
[2020-08-13 07:40] VITALS: BP 130/84
[2020-08-13 11:30] VITALS: BP 146/66
[2020-08-13 15:17] VITALS: BP 146/64
--- NOTE | 2020-08-13 16:23 | NUR ---
Assumed pt care at 7am.Pt in bed very sleepy but arousable.Assessment completed.vss.Pt kept npo for egd.Dr Hoffman,GI ,and cardiology here.Order noted.Pt left for egd around 930am and returned before lunch in stable condition.Lunch given and well tolerated.Pt will be staying over the weekend in hospital till admitted into snf.No verbal c/o at present.Will continue to monitor.
[2020-08-13 20:25] VITALS: BP 103/38; BP 118/48
--- NOTE | 2020-08-14 05:18 | NUR ---
ASSUMED CARE OF PT AT 1900HRS. PT IS AOX4 AND LETS NEEDS BE KNOWN. FALL PRECAUTION IN PLACE. PT DENIES PAIN, NAUSEA, OR SOA. PT IS AFIB ON TELE. ASSESSMENT CHARTED. PT WAS ABLE TO GET COMFORTABLE AND SLEEP PART OF THE SHIFT. VSS AND NO S/S OF ACUTE DISTRESS. WILL CONTINUE TO MONITOR.
[2020-08-14 06:06] LABS: ALBUMIN 2.4 g/dL (3.4-5.0); CALCIUM 8.6 mg/dL (8.5-10.1); CREATININE 1.3 mg/dL (0.7-1.3); POTASSIUM 3.7 mmol/L (3.5-5.1)
[2020-08-14 07:53] VITALS: BP 131/50; BP 145/55
[2020-08-14 08:20] VITALS: BP 141/52
[2020-08-14 08:40] VITALS: BP 155/66
[2020-08-14 12:11] VITALS: BP 107/40
--- NOTE | 2020-08-14 17:34 | NUR ---
Assumed pt care this am, VS stable. Pt refused SCD's, diet and medications are tolerated well. Pt stayed on the recliner for most of the day and had meals there. POC followed with no signs or verbalizations of distress noted.
[2020-08-14 17:51] VITALS: BP 128/43
[2020-08-14 20:41] VITALS: BP 123/43
--- NOTE | 2020-08-15 02:57 | NUR ---
ASSUMED CARE OF PT AT 1900HRS. PT AOX3-4 AND LETS NEEDS BE KNOWN. FALL PRECAUTION IN PLACE. PT DENIES PAIN NAUSEA OR SOA. ASSESSMENT CHARTED. PT WAS ABLE TO GET COMFORTABLE AND SLEEP PART OF THE SHIFT. VSS AND NO S/S OF ACUTE DISTRESS. WILL CONTINUE TO MONITOR.
[2020-08-15 08:35] VITALS: BP 126/53
[2020-08-15 13:19] VITALS: BP 143/56
--- NOTE | 2020-08-15 15:06 | NUR ---
ASSUMED CARE AT 0700. PLAN IS TO DISCHARGE SNF TOMORROW. AFEBRILE. HAD A BM TODAY. PATIENT WORKED WITH PT TODAY. PATIENT PROGRESSING TOWARDS THE PLAN OF CARE. VSS WNL. WILL CONTNIUE TO MONITOR. PATIENT UPDATED AND EDUCATED ON THE PLAN OF CARE.
[2020-08-15 16:47] VITALS: BP 118/59
[2020-08-15 19:31] VITALS: BP 106/51
--- NOTE | 2020-08-16 03:13 | NUR ---
patient aox4 makes needs known. patient encouraged fluids. patient uses urinal at night. fall precaution in place.patient in bed asleep at this time breathing regular and unlaboured.
[2020-08-16 07:29] VITALS: BP 148/66
[2020-08-16 10:10] LABS: HEMATOCRIT 29.4 % (42.0-52.0); MCH 30.6 pg (26.0-34.0); MCHC 33.9 g/dL (28.0-37.0); MCV 90.1 fL (80.0-100.0); RBC 3.26 mil/uL (4.50-6.00); RDW 15.5 % (10.5-14.5); WBC 9.4 thou/uL (4.0-11.0)
[2020-08-16 14:00] VITALS: BP 105/36
--- NOTE | 2020-08-16 14:19 | NUR ---
CM CALLED AND SPOKE WITH PT THIS AM AND INDICATED THAT [facility] IS IN NETWORK WITH HIS INSURANCE OR [facility]. HE ASKED THAT REFERRAL BE SENT TO [facility] IT WAS SENT AND IT WAS INDICATED THAT THEY AREN'T TAKING NEW PATIENTS AT THIS MOMENT RELATED TO COVID. CM NOTIFIED PT'S DTR IN LAW. REFERRALS BEING SENT TO [facility] TO ENSURE THAT THEY INFACT DON'T TAKE THE INSRUANCE AND [facility]. CM TO FOLLOW INDICATED WITH DC PLANNING.
--- NOTE | 2020-08-16 15:22 | NUR ---
FAXED REFERRAL TO [facility] RECEIVED CONFIRMATION AND LEFT MSG WITH RAMIRO IN ADM.
--- NOTE | 2020-08-16 15:50 | NUR ---
FAXED REFERRAL TO [facility] SPOKE WITH RAMIRO IN ADM SHE RECEIVED REFERRAL AND WILL NOT HAVE BED AVAILABLE TIL SUNDAY. FAXED REFERRAL TO [facility] SPOKE WITH TRIP IN ADM SHE RECEIVED REFERRAL AND WILL RUN INSURANCE. DP TO FOLLOW.
--- NOTE | 2020-08-16 16:06 | PATH ---
[facility] [address] [place] [address] PATHOLOGY RPT PROCEDURE Name: MANNY SHERIFF Room #: 458-P ADM IN M.R.#: [id number] Admission: 08/11/20 Date of : 38 Discharge: Report #: [id number] Path Case #: [id number] [facility] Accession Number: [id number] . 01 Material submitted: . stomach - GASTRIC BX . 01 Clinical history: . R/O H PYLORI, ABDOMINAL PAIN, HX OF DUODENAL ULCER . 02 Diagnosis: Gastric mucosa, gastric to rule out H. pylori, endoscopic biopsy: - Mild chronic active gastritis. - Negative for intestinal metaplasia or atrophy. - Negative for Helicobacter pylori (properly controlled immunohistochemical stain performed). (IUV:dental sales representative; 08/16/2020) MBR 08/16/2020 1245 Local . 02 Electronically signed: . Vi Ayala MD, Pathologist NPI- [id number] . 01 Gross description: . Received in formalin labeled "Aron, Manny, gastric BX rule out H. pylori" are two gay-brown soft tissue fragments measuring in aggregate 0.7 x 0.5 x 0.2 cm. The specimen is submitted entirely in A1. ([facility] [place] 08/15/2020) [facility] 08/15/2020 1215 Local . 02 Pathologist provided ICD-10: K29.50 . 02 CPT . 957520, [id number] Specimen Comment: A courtesy copy of this report has been sent to [phone], [phone] Specimen Comment: [phone], Specimen Comment: Report sent to ,DR SCALES / DR BAUM Performed at: [address], [place] [id number] MD Srikanth De Jesus MD Phone: [phone] Performed at: [address] [id number] MD Vi Ayala MD Phone: [phone]
--- NOTE | 2020-08-16 17:29 | NUR ---
[facility] CONSULT RECEIVED HOWEVER Pt'S INSURANCE IS OON WITH [facility] AT [facility]. CIGARETTE MACHINE OPERATOR/CM AWARE. THANK YOU FOR THIS REFERRAL.
--- NOTE | 2020-08-16 17:45 | NUR ---
ASSUMED CARE @ 0700 08/16/20, PT ASSESSMENT AND VSS COMPLETE PER MST ORDERS, PT DONE TO RADIOLOGY FOR TEST, NO COMPLICATIONS NOTED, PT HAD AN UNEVENTFUL DAY, WILL CONT TO MONITOR.
[2020-08-16 19:45] VITALS: BP 102/53
--- NOTE | 2020-08-17 04:41 | NUR ---
ASSUMED CARE OF PT AT 1900HRS. PT AOX4 ADN AND LETS NEEDS BE KNOWN. FALL PRECAUTION IN PLACE. PT DENIES. NAUSEA OR SOA. ASSESMENT CHARTED. PT RECEIVED A STOOL SOFTENER AND WAS ABLE TO HAVE A BM THIS SHIFT. MOWER MECHANIC WAS NOTIFIED REGARDING SWELLING IN RIGHT ELBOW. US AND BC OBTAINED. VSS AND NO S/S OF ACUTE DISTRESS. WILL CONTINUE TO MONITOR.
[2020-08-17 07:12] VITALS: BP 126/68
[2020-08-17 10:21] LABS: ALBUMIN 2.3 g/dL (3.4-5.0); CALCIUM 7.8 mg/dL (8.5-10.1); CREATININE 1.2 mg/dL (0.7-1.3); POTASSIUM 3.5 mmol/L (3.5-5.1); TOTAL PROTEIN 5.7 g/dL (6.4-8.2)
--- NOTE | 2020-08-17 14:37 | NUR ---
UPDATES SENT TO [facility] THIS AM. AWAITING INSURANCE AUTH. PT IS AWARE AND CM CALLED AND UPDATED PT'S SON UMA. HE PROVIDED HIS CONTACT FOR PT'S INSURANCE LILLIANA WELISA CM CALLED AND SHE INDICATED HE HAD BEEN TO [facility] NOT BO IN PAST. CM CALLED [facility] AND THEY ACCEPT PT'S INSURANCE AND HAVE BEDS OPEN. REFERRAL SENT TO THEM. CM TO CALL DAVON TAYLOR HIS ADVISOR . TO SEE IF SHE CAN EXPIDITE AN AUTH. CM TO FOLLOW INDICATED WITH DC PLANNING.
[2020-08-17 16:53] VITALS: BP 125/50
--- NOTE | 2020-08-17 17:11 | NUR ---
FAXED REFERRAL TO [facility] RECEIVED CONFIRMATION AND LEFT MSG FOR DON IN ADM. DP TO FOLLOW.
--- NOTE | 2020-08-17 19:58 | NUR ---
ASSUMED PT CARE THIS AM. PT VITAL SIGNS STABLE, A&OX3. PT CALLED WHEN NEEDED. NO PAIN NOTED EXCEPT UPON MOVEMENT, BUT RESOLVES AFTER STAYING STILL. PT REPOSITIONED SELF IN BED AND MOVED TO CHAIR DURING SHIFT WELL. PT REFUSED SCD'S, NURSE ADVISED IMPORTANCE OF THEM. PT IV PATENT. CONDOM CATH PLACED ON PT DUE TO PT INCONTINENCE. ENDORSED TO NIGHT NURSE.
[2020-08-17 20:26] VITALS: BP 108/54
--- NOTE | 2020-08-18 04:52 | NUR ---
ASSUMED CARE OF PT AT 1900. PT IS A/O X3 WITH SOME FORGETFULLNESS. PT DENIES ANY PAIN OR DISCOMFORT. HAS A NON-PRODUCTIVE COUGH. AFIB/BBB ON THE MONITOR WITH OCCASIONAL PVC'S. REFUSES SCD'S. FALL PRECAUTIONS ARE IN PLACE, CALL LIGHT IS WITHIN REACH. WILL CONTINUE TO MONITOR.
[2020-08-18 07:32] VITALS: BP 138/50
--- NOTE | 2020-08-18 08:24 | P ---
[facility] [place] [address] PROCEDURE REPORT Name: NERY SHERIFF Room #: 458-P [facility] IN .R.#: [id number] Admission: 08/11/20 Attend Phys: Manjit Moreira MD Discharge: Date of : 39 Report #: [id number] THIS REPORT FOR: cc: Azam Galindo MD,Micky Bush MD, MD ~ CC: Manjit Galindo DATE OF SERVICE: 08/13/2020 PROCEDURE PERFORMED: Upper endoscopy with biopsies. HISTORY OF PRESENT ILLNESS: The patient is an 80-year-old male who was admitted for recent falls and generalized weakness. He has multiple medical problems, has been having some midepigastric abdominal pain after eating. Denies any melanotic stools. He has a previous history of duodenal ulcer and gastritis. He does take aspirin, but is also on Protonix. He has a history of AVMs as well. His hemoglobin is 10.5. Plan is for upper endoscopy. He denies any dysphagia. DESCRIPTION OF PROCEDURE: The risks and benefits of the procedure were explained to the patient, those risks including but not limited to bleeding, perforation and the risk of sedation. He understood these risks and gave informed consent. Sedation was given using propofol per anesthesia. Next, using a standard Olympus upper endoscope, the scope was placed in the patient's mouth and advanced under direct vision through the esophagus, stomach and into the second portion of the duodenum. The esophagus was normal throughout. The GE junction was normal. Overall, the gastric mucosa was normal. No evidence of inflammation or ulcerations. Biopsies were obtained to rule out H. pylori. The pylorus was normal and patent. The duodenal bulb, first and second portion were all normal. The scope was then withdrawn and the procedure terminated. The patient tolerated the procedure well. IMPRESSION: Normal upper endoscopy. RECOMMENDATIONS: 1. Await biopsy results. 2. Continue daily PPI therapy. [address] [address] PROCEDURE REPORT Name: NERY SHERIFF Room #: 458-P [facility] IN ..#: [id number] Admission: 08/11/20 Attend Phys: Manjit Moreira MD Discharge: Date of : 39 Report #: [id number] Thank you for allowing me to participate in his care. <ELECTRONICALLY SIGNED> By: Micky Sweeney MD 08/18/20 0824 1040 1232 Micky Sweeney MD /nt
[2020-08-18 10:43] LABS: ALBUMIN 2.2 g/dL (3.4-5.0); CALCIUM 7.9 mg/dL (8.5-10.1); CREATININE 1.2 mg/dL (0.7-1.3); POTASSIUM 3.6 mmol/L (3.5-5.1); TOTAL BILIRUBIN 0.7 mg/dL (0.2-1.0); TOTAL PROTEIN 5.7 g/dL (6.4-8.2)
--- NOTE | 2020-08-18 12:16 | NUR ---
REFERRAL HAD BEEN SENT TO [facility] THEY ARE IN [place] WITH PT'S INSURANCE. THEY ARE ABLE TO ACCEPT PT ANDSUBMITTED FOR AUTH. THEY RECEIVED AUTH THIS AM. THEY FILLED THEIR LAST BED TODAY. THEY RE ABLE TO ACCEPT PT TOMORROW AT 10:00. WC VAN ARRANGED WITH NO O2. PT AND SON ARE AWARE AND AGREEABLE. CHART COPY TO BE MADE. ORDERS WERE ALREADY FAXED. CM TO FOLLOW INDICATED WITH DC PLANNING.
--- NOTE | 2020-08-18 14:26 | NUR ---
ASSUMED PT CARE THIS AM. PT VITAL SIGNS STABLE, A&OX2-3. PT ALLOWS REPOSITIONING, BUT NOT Q2 HOURS. PT REFUSES POSITIONING WEDGE. IV PATENT. PT REMAINS INCONTINENT. N OCOMPLAINTS OF PAIN. MEDICATION GIVEN WITH NO COMPLAINTS. WILL CONTINUE TO MONITOR.
[2020-08-18 15:30] VITALS: BP 134/50
[2020-08-18 15:32] VITALS: BP 143/46
[2020-08-18 15:34] VITALS: BP 107/58
[2020-08-18 19:35] VITALS: BP 122/54
--- NOTE | 2020-08-18 23:39 | NUR ---
PT ALERT AND ORIENTED X 3. INCONT LARGE AMTS YELLOW URINE. PT C/O PAIN WITH MOVEMENT ESPECIALLY IN RIGHT ARM. REFUSES PAIN MEDS. PT HAS SKIN TEAR ON RIGHT BUTTOCKS. BARRIER CREAM APPLIED PRN. BED ALARM ON FOR SAFETY. PT APPEARS TO BE SLEEPING ON HOURLY ROUNDS.
[2020-08-19 08:00] VITALS: BP 141/68
--- NOTE | 2020-08-19 10:23 | NUR ---
DISCHARGE PAPERS REVIEWED WITH PATIENT SIGNED AND COPY IN CHART. IV ACSESS DCD. ALL BELONGINGS EXCEPT SHAVING CREAM AND SHAVER THAT WAS IN BATHROOM SENT WITH PATIENT. CALLED FAMILY AND FACILITY TO LET KNOW ABOUT SHAVING CREAM AND SHAVER. PATIENT LEFT VIA TRANSPOT W/C VAN AT 10:00. TELE MONITOR DCD. TELE STRIP PRINTED AND ON CHART.
--- NOTE | 2020-08-19 10:33 | NUR ---
PT DISCHARGED TO [facility] THIS MORNING AT 10:00AM VIA SECURE WC VAN. CHART COPY MADE. ORDERS HAD BEEN FAXED YESTERDAY. [id number] COMPLETED, FAXED, AND COPY IN CHART COPY. REPORT CALLED TO [facility]. PT AND SON AWARE. NO OTHER CM INTERVENTION INDICATED. CASE CLOSED.
--- NOTE | 2020-08-19 17:16 | NUR ---
DIL CAME AND PICKED UP PATIENT'S RAZOR AND SHAVING ACESSORIES.
== END 2020-08-19 10:35 | DRG 291 ==
LOC: ER 21:30 → 4W 08-11 01:40 → EROBS 08-11 01:40 → 4W 08-11 02:40
PROVIDERS: Emergency Medicine; Hospitalist; Nurse Practitioner Adult Health; Nurse Practitioner Family; Psychiatry & Neurology Neurology; ADMIT Hospitalist; ATTEND Hospitalist
PROC: 0DB68ZX Excision of Stomach, Via Natural or Artificial Opening Endoscopic, Diagnostic (ICD-10-PCS; principal; 2020-08-13)
DX: I13.0 Hypertensive heart and chronic kidney disease with heart failure and stage 1 through stage 4 chronic kidney disease, or unspecified chronic kidney disease (principal); N17.0 Acute kidney failure with tubular necrosis; E87.1 Hypo-osmolality and hyponatremia; G45.9 Transient cerebral ischemic attack, unspecified; I48.21 Permanent atrial fibrillation; I95.9 Hypotension, unspecified; I50.9 Heart failure, unspecified; E78.5 Hyperlipidemia, unspecified; I73.9 Peripheral vascular disease, unspecified; N18.9 Chronic kidney disease, unspecified; E83.42 Hypomagnesemia; R25.1 Tremor, unspecified; M10.9 Gout, unspecified; I25.10 Atherosclerotic heart disease of native coronary artery without angina pectoris; Z96.641 Presence of right artificial hip joint; E78.00 Pure hypercholesterolemia, unspecified; J44.9 Chronic obstructive pulmonary disease, unspecified; G47.33 Obstructive sleep apnea (adult) (pediatric); N18.30 Chronic kidney disease, stage 3 unspecified; R63.4 Abnormal weight loss; G47.00 Insomnia, unspecified; Z20.828 Contact with and (suspected) exposure to other viral communicable diseases; R62.7 Adult failure to thrive; Z95.1 Presence of aortocoronary bypass graft; Z88.6 Allergy status to analgesic agent; Z88.8 Allergy status to other drugs, medicaments and biological substances; Z95.5 Presence of coronary angioplasty implant and graft; Z82.49 Family history of ischemic heart disease and other diseases of the circulatory system; Z87.891 Personal history of nicotine dependence; Z79.82 Long term (current) use of aspirin; Z79.899 Other long term (current) drug therapy; Z68.24 Body mass index [BMI] 24.0-24.9, adult
CPT/HCPCS: 10045; 62110; 62900; 70005

== ENCOUNTER 2020-09-05 00:01 | Inpatient (IN) | payer OTHER, MEDICAID ==
[~2020-09-05] VITALS: Ht 180.3 cm; Wt 89.6 kg
[~2020-09-05 00:01] MED LIST changes: +METOLAZONE 5 MG5 MG PO
[2020-09-05 00:02] VITALS: BP 111/72
[2020-09-05 00:44] LABS: HEMOGLOBIN 8.9 gm/dL (14.0-18.0); PLATELET COUNT 99 thou/uL (150-400)
[2020-09-05 00:46] LABS: HEMATOCRIT 27.2 % (42.0-52.0); MCH 30.7 pg (26.0-34.0); MCHC 32.7 g/dL (28.0-37.0); MCV 93.7 fL (80.0-100.0); RDW 17.5 % (10.5-14.5)
[2020-09-05 00:49] LABS: WBC 1.9 thou/uL (4.0-11.0)
[2020-09-05 00:54] LABS: CALCIUM 8.5 mg/dL (8.5-10.1); CREATININE 1.4 mg/dL (0.7-1.3); POTASSIUM 4.6 mmol/L (3.5-5.1)
[2020-09-05 00:59] LABS: ALBUMIN 2.6 g/dL (3.4-5.0); TOTAL BILIRUBIN 0.9 mg/dL (0.2-1.0); TOTAL PROTEIN 6.2 g/dL (6.4-8.2)
[2020-09-05 02:06] LABS: URINE BILIRUBIN NEGATIVE (Negative); URINE BLOOD NEGATIVE (Negative); URINE CLARITY CLEAR; URINE COLOR YELLOW; URINE GLUCOSE-RANDOM* NEGATIVE (Negative); URINE KETONES NEGATIVE (Negative); URINE LEUKOCYTES-REFLEX NEGATIVE (Negative); URINE NITRITE-REFLEX NEGATIVE (Negative); URINE PROTEIN (DIPSTICK) NEGATIVE (Negative); URINE UROBILINOGEN 0.2 E.U./dl (0.2-1.0)
[2020-09-05 02:09] LABS: ABSOLUTE NEUTROPHILS 1.2 thou/uL (1.4-8.2)
[2020-09-05 02:10] LABS: ANISOCYTOSIS 1+; LARGE PLATELETS OCCASIONAL; PLATELET ESTIMATE DECREASED
[2020-09-05] MEDS ORDERED: CALMOSEPTINE O3.5 GM (02:57)
[2020-09-05] MEDS ORDERED: MITIGARE0.6 MG PO (02:58)
[2020-09-05] MEDS ORDERED: PROAIR HFA8.5 GM INH (02:59)
[2020-09-05] MEDS ORDERED: MUCINEX600 MG PO (02:59)
[2020-09-05] MEDS ORDERED: TYLENOL325 MG PO (03:00)
[2020-09-05] MEDS ORDERED: TRAMADOL 50 MG50 MG PO (03:00)
[2020-09-05] MEDS ORDERED: VOLTAREN GEL 1100 G1 TOP (03:01)
[2020-09-05] MEDS ORDERED: ONDANSETRON HCL4 M2 PO (03:02)
--- NOTE | 2020-09-05 03:04 | NUR ---
ALINE KNITTING SUPERVISOR AT BEDSIDE TO ASSESS PATIENT
--- NOTE | 2020-09-05 04:00 | NUR ---
Pt had BM in brief. Pt was changed and bathed. New gown and bed sheets change for pt.
[2020-09-05 11:02] VITALS: BP 145/68
--- NOTE | 2020-09-05 11:19 | EKG ---
[facility] [place] [address] ELECTROCARDIOGRAM REPORT Name: NERY SHERIFF Room #: 170-1 ADM IN M.R.#: [id number] Admission: 09/05/20 Attend Phys: Mariela Blood MD Discharge: Date of : 39 Report #: [id number] THIS REPORT FOR: cc: Azam Galindo MD, Christopher B. MD Couchonnal, Luis F. MD ~ THIS REPORT FOR: //name// [facility] ED Test Date: 2020-09-05 Test Time: 00:48:06 Pat Name: NERY SHERIFF Department: Room: 170 Gender: M Instructional Media Services Technician: esdras : 1940 Requested By: Sam Arreola Order Number: [id number] MD: Trevin Ch Measurements Intervals [place] Rate: 74 P: CA: QRS: 4 QRSD: 151 T: -24 QT: 383 QTc: 425 Interpretive Statements Atrial fibrillation Ventricular premature complex Right bundle branch block Compared to ECG 08/11/2020 07:42:47 Ventricular premature complex(es) now present Electronically Signed On 09-05-2020 11:19:12 CDT by Trevin Ch [email or web address] <ELECTRONICALLY SIGNED> By: Trevin Ch MD 09/05/20 1119 0048 0048 Trevin Ch MD /EPI
[2020-09-05 12:01] VITALS: BP 168/89
[2020-09-05 15:31] VITALS: BP 133/74
[2020-09-05 19:22] VITALS: BP 135/83
--- NOTE | 2020-09-05 19:27 | NUR ---
PATIENT ADMITTED TO UNIT. HE IS ALERT ORIENTED X4. INCONT OF BOWEL AND BLADDER. WILL COT WITH PLAN OF CARE.
--- NOTE | 2020-09-06 02:39 | NUR ---
PT ALERT AND ORIENTED X4. VSS AFEBRILE. UNLABORED ON 2LNC. NO C/O PAIN. DENIED SOA. ENC PT TO TURN Q 2 HRS. SO FAR HE HAS REFUSED TO TURN AND REFUSED HIS SCDS. BED DOWN CALL LIGHT IN REACH. BED ALARM ON.
[2020-09-06 04:28] VITALS: BP 151/83
[2020-09-06 05:57] LABS: HEMOGLOBIN 8.9 gm/dL (14.0-18.0)
[2020-09-06 05:59] LABS: HEMATOCRIT 27.1 % (42.0-52.0); MCH 30.6 pg (26.0-34.0); MCHC 32.9 g/dL (28.0-37.0); RBC 2.92 mil/uL (4.50-6.00)
[2020-09-06 06:03] LABS: WBC 0.4 thou/uL (4.0-11.0)
[2020-09-06 06:15] LABS: CALCIUM 8.3 mg/dL (8.5-10.1); CREATININE 1.3 mg/dL (0.7-1.3); POTASSIUM 4.6 mmol/L (3.5-5.1)
[2020-09-06 06:30] LABS: ALBUMIN 2.5 g/dL (3.4-5.0); DIRECT BILIRUBIN 0.4 mg/dL (<0.1-0.2); TOTAL BILIRUBIN 0.7 mg/dL (0.2-1.0); TOTAL PROTEIN 5.6 g/dL (6.4-8.2)
[2020-09-06 08:36] VITALS: BP 154/68
[2020-09-06 12:35] VITALS: BP 142/72
[2020-09-06 16:00] VITALS: BP 146/78
[2020-09-06 21:01] LABS: OBSERVED RETIC COUNT 1.36 % (0.6-2.6)
[2020-09-06 21:34] VITALS: BP 140/74
[2020-09-06 23:47] VITALS: BP 145/85
--- NOTE | 2020-09-07 03:28 | NUR ---
PT ALERT WITH PERIODS OF CONFUSION. HE CALLS STEEL DIE PRESS SET UP OPERATOR FOR EXAMPLE INSTEAD OF USING CALL LIGHT FOR ASSISTANCE. PT IS FORGETFUL TO WHY HE CALLED OUT. PT ON REVERSE ISOLATION DUE TO LOW WBC. PT ON COVID ISOLATION ALSO. PT WAS UNAWARE HE WAS POSITIVE FOR COVID. PT WILL ALLOW TURNS ONLY SOMETIMES. OFFERED SEVERAL TIMES TO REPOSITION HIM DUE TO HE STATED HIS BACK WAS HURTING BUT HE REFUSED. TRAMADOL GIVEN FOR PAIN AND 1 MELATONIN GIVEN FOR INSOMNIA. BED DOWN CALL LIGHT IN REACH. BED ALARM IS ON.
[2020-09-07 05:31] VITALS: BP 154/91
[2020-09-07 06:02] LABS: HEMATOCRIT 27.2 % (42.0-52.0); MCH 30.5 pg (26.0-34.0); MCHC 33.1 g/dL (28.0-37.0); MCV 92.3 fL (80.0-100.0); PLATELET COUNT 82 thou/uL (150-400); RBC 2.95 mil/uL (4.50-6.00); RDW 17.6 % (10.5-14.5)
[2020-09-07 06:13] LABS: WBC 2.3 thou/uL (4.0-11.0)
[2020-09-07 06:22] LABS: CALCIUM 8.3 mg/dL (8.5-10.1); CREATININE 1.2 mg/dL (0.7-1.3); POTASSIUM 4.1 mmol/L (3.5-5.1)
[2020-09-07 06:28] LABS: ALBUMIN 2.6 g/dL (3.4-5.0); DIRECT BILIRUBIN 0.4 mg/dL (<0.1-0.2); TOTAL BILIRUBIN 0.8 mg/dL (0.2-1.0); TOTAL PROTEIN 6.2 g/dL (6.4-8.2)
[2020-09-07 07:41] VITALS: BP 146/79
[2020-09-07 09:31] LABS: ABSOLUTE NEUTROPHILS 1.9 thou/uL (1.4-8.2); PLATELET ESTIMATE DECREASED
[2020-09-07 09:32] LABS: ANISOCYTOSIS 1+
[2020-09-07 11:28] VITALS: BP 149/83
[2020-09-07 15:57] VITALS: BP 142/72
[2020-09-07 19:43] VITALS: BP 125/74
[2020-09-07 21:06] LABS: HEMOGLOBIN 8.9 g/dL (13.0-17.7)
[2020-09-08 03:12] VITALS: BP 144/95
--- NOTE | 2020-09-08 04:45 | NUR ---
Pt. rested quietly at intervals during the night when checked on during frequent rounds. He is currently in isolation for covid+. He does have a non-productive congested cough. No c/o shortness of air. Bed alarm is on.
[2020-09-08 06:41] LABS: HEMATOCRIT 26.8 % (42.0-52.0); MCH 31.3 pg (26.0-34.0); MCHC 33.7 g/dL (28.0-37.0); RBC 2.88 mil/uL (4.50-6.00); RDW 17.4 % (10.5-14.5); WBC 2.5 thou/uL (4.0-11.0)
[2020-09-08 07:00] LABS: CALCIUM 8.2 mg/dL (8.5-10.1); CREATININE 1.2 mg/dL (0.7-1.3); POTASSIUM 4.3 mmol/L (3.5-5.1)
[2020-09-08 07:02] LABS: ALBUMIN 2.6 g/dL (3.4-5.0); DIRECT BILIRUBIN 0.4 mg/dL (<0.1-0.2); TOTAL BILIRUBIN 0.8 mg/dL (0.2-1.0); TOTAL PROTEIN 5.6 g/dL (6.4-8.2)
[2020-09-08 08:19] VITALS: BP 137/78
[2020-09-08 11:33] VITALS: BP 153/76
--- NOTE | 2020-09-08 11:40 | NUR ---
ASSUMED CARE APPROX 0700. PT ALERT AND ORIENTED X4. ASSESSMENT CHARTED AND VSS. PT AFEBRILE. ON 2LNC W/O DISTRESS NOTED. PT DENIES PAIN. PT DENIES CHEST PAIN. AFIB ON TELE MONITOR. CARE TAKEN OVER BY [facility] [employer]. REPORT GIVEN.
--- NOTE | 2020-09-08 15:04 | NUR ---
Case opened to follow for dc planning. Pt is in enhanced ISO and reverse precautions due to Covid+ and low wbcs. He readmitted from SNF at [facility] where he has been rehabing since dc from here on 08/19/20. The pt's goal was to return home with his sign other. He lives in a home with two steps to enter and everything is on one level. He has a rwalker for home use and had homemaker services 4-5hrs M-F thru his [place] medicaid. The pt struggles with gout pain in his right shoulder and had had some recent falls at home percipitating his SNF stay. [facility] Manager spoke with the pt's son/sae An and is in contact with the unit staff. He has been touching base with the pt via cell phone and will let the staff know he is interested in facetiming with the pt. He is debating pt's return to SNF for additional rehab or going home with hh pending his progress and his response to Covid. The pt is getting his 4th dose of Remdesivir today. Cm role reviewed and unit TOBACCO SCRAP SIFTER number provided. Dc workforce planner to update [facility]. They can accept the pt for readmission/snf pending new ins auth. The pt's sign other has health issues and the pt would need a negative test to return home with her and HH. Support provided. Therapy evals are being ordered. Will follow for dc to SNF or HH pending his progress.
--- NOTE | 2020-09-08 15:18 | NUR ---
ASSUMED CARE @ 1200 09/08/20, PT ASSESSMENTS AND VSS COMPLETE PER CC TELE ORDERS. PT HAD CONCERNS ABOUT RE-STARTING HIS TIMOLOL MALEATE, DR MENDOZA INFORMED ORDER RESTARTED. EMEKA EATON CALLED @ 1504 WITH CONCERNS ABOUT RESTARTING HIS GOUT MEDICATION, DR MENDOZA INFORMED, MEDICATION RESTARTED.
[2020-09-08 16:00] VITALS: BP 129/65
--- NOTE | 2020-09-08 17:30 | NUR ---
PT IS FROM [facility] FAXED CLINICAL UPDATE TO FACILITY SPOKE WITH ANDREINA IN ADM SHE RECEIVED UPDATE.
[2020-09-08 20:22] VITALS: BP 129/74
[2020-09-09 04:44] VITALS: BP 135/70
--- NOTE | 2020-09-09 05:14 | NUR ---
ASSESSMENT: PT REMAIN ALERT AND ORIENT TIMES THREE. SLEPT MOST OF THE NIGHT. AFIB PER MONITOR. SLOW PROGRESS TOWARDS DC GOALS. WILL CONTINUE TO MONITOR.
[2020-09-09 06:16] LABS: HEMATOCRIT 27.4 % (42.0-52.0); HEMOGLOBIN 9.1 gm/dL (14.0-18.0); MCH 30.8 pg (26.0-34.0); MCHC 33.2 g/dL (28.0-37.0); MCV 92.9 fL (80.0-100.0); RBC 2.95 mil/uL (4.50-6.00); RDW 18.6 % (10.5-14.5); WBC 5.4 thou/uL (4.0-11.0)
[2020-09-09 06:37] LABS: CALCIUM 8.3 mg/dL (8.5-10.1); CREATININE 1.4 mg/dL (0.7-1.3); POTASSIUM 4.1 mmol/L (3.5-5.1)
[2020-09-09 06:38] LABS: ALBUMIN 2.5 g/dL (3.4-5.0); DIRECT BILIRUBIN 0.3 mg/dL (<0.1-0.2); TOTAL BILIRUBIN 0.8 mg/dL (0.2-1.0); TOTAL PROTEIN 5.8 g/dL (6.4-8.2)
[2020-09-09 08:40] VITALS: BP 126/57
[2020-09-09 12:53] VITALS: BP 139/70
--- NOTE | 2020-09-09 13:00 | NUR ---
Primetime Rounds: pt on day 5 on Remdesvir. pt cont on IV ABX and steroids.
--- NOTE | 2020-09-09 14:48 | HC ---
[facility] [place] [address] CONSULTATION Name: NERY SHERIFF Room #: 357-P ADM IN ..#: [id number] Admission: 09/05/20 Attend Phys: Benigno Santos MD Discharge: Date of : 39 Report #: [id number] THIS REPORT FOR: cc: Azam Galindo MD, Christopher B. MD Barry, Joseph W. MD ~ DATE OF SERVICE: 09/05/2020 INFECTIOUS DISEASE CONSULTATION ATTENDING PHYSICIAN: Dr. Blood. REASON FOR EVALUATION: COVID-19 infection, complicated by pneumonitis, which is likely multifactorial, also was found to have pancytopenia as well. HISTORY OF PRESENT ILLNESS: Chart reviewed, patient examined. This is an 80-year-old gentleman with extensive medical history including widespread vasculopathy, has known cardiomyopathy, chronic renal insufficiency, who was found recently to have pancytopenia with a white count of 1.9. He was evaluated ___ from his standpoint it was unclear why, but he was found to have an oxygen saturation marginal. He was referred for evaluation to the hospital Emergency Room. COVID test was positive. He notes he had recent negative COVID testing. Chest x-ray did show bilateral infiltrates, may be a component of edema as well. His lactic acid was 1.1. Urinalysis was otherwise unremarkable. CBC: White count 1.9, H and H 8.9 and 27.2, platelets 99, did have 29% lymphocytes, 8% bands. Electrolytes generally unremarkable. Creatinine 1.4. Did have elevated hepatic transaminases to a moderate degree. Empirically started on cefepime. Presently, he is seen in the Emergency Room. He really is not complaining of anything in particular. Denies any recent fevers or chills. Appetite has been generally pretty good. ALLERGIES: HYDROCODONE AND ACETAMINOPHEN. CURRENT MEDICATIONS: Include atorvastatin, vancomycin, multivitamin, calcium carbonate, gabapentin, aspirin, dexamethasone, guaifenesin, cefepime, pantoprazole. PAST MEDICAL HISTORY: He has extensive history of widespread vasculopathy, has known coronary artery disease with previous aortocoronary bypass grafting, previous stroke, atrial fibrillation, hyperlipidemia, abdominal aortic aneurysm, peripheral vascular disease with stenting, history of glaucoma. SOCIAL HISTORY: Former smoker. No ethanol. No illicit drug use. [address] [address] CONSULTATION Name: NERY SHERIFF Room #: 357-P [facility] IN .R.#: [id number] Admission: 09/05/20 Attend Phys: Benigno Santos MD Discharge: Date of : 39 Report #: [id number] FAMILY HISTORY: Noncontributory. REVIEW OF SYSTEMS: Otherwise, unremarkable 10-point review of systems. PHYSICAL EXAMINATION: GENERAL: Appears somewhat chronically ill. He is alert and cooperative. He is not encephalopathic, mild distress. VITAL SIGNS: Temperature 99.1, pulse 74, respirations 14, blood pressure 145/68, saturations 100% on 2 liters nasal cannula. HEENT: Normocephalic. Extraocular muscles are intact. NECK: Supple. LUNGS: Few scattered coarse breath sounds. HEART: Somewhat irregular. ABDOMEN: Soft, nontender, nondistended. EXTREMITIES: No cyanosis. GENITOURINARY AND RECTAL: Deferred. LABORATORY DATA: Electrolytes: Sodium 134, potassium 4.6, chloride 101, bicarbonate 24, anion gap of 10, BUN and creatinine 26 and 1.4, glucose of 93. AST of 77, ALT of 80, alkaline phosphatase of 295. Albumin of 2.6, total protein 6.2. Estimated GFR 49. ProBNP of 4372. Urinalysis unremarkable. CBC: White count of 1.7, H and H 8.9 and 27.2, platelets of 99, 54% segmented neutrophils, 8% bands. COVID testing was positive. Lactic acid 1.1. Chest x-ray felt to be congestive heart failure, cardiomegaly with pulmonary venous congestion, bilateral perihilar interstitial infiltrates, perhaps small bilateral pleural effusions. ASSESSMENT: COVID-19 infection in the setting of patient with multiple comorbidities. He is quite tenuous at baseline, has been started on combination of antimicrobial therapy. Blood cultures have been collected. We will check some inflammatory markers, likely start remdesivir. In addition to that, he has pancytopenia whether this is a new onset, perhaps adverse drug related or bone marrow suppression. Of note, he did have labs on 08/16/2020 here and his white count was normal at 9.4. It seems less likely to be some sort of myelodysplastic syndrome. Check ultrasound of the abdomen to exclude primary biliary tract issue. He remains quite tenuous. <ELECTRONICALLY SIGNED> By: Sen Rodriguez MD 09/09/20 1448 1146 1605 Sen Rodriguez MD /nt
[2020-09-09 15:37] VITALS: BP 139/64
--- NOTE | 2020-09-09 15:41 | NUR ---
ASSUMED PATIENT CARE THIS AM AT APPROXMIATELY 0700. PATIENT IS AWAKE ALERT ORIENTED. NO ACUTE DISTRESS NOTED. VSS. O2 SAT STABLE ON 2LNC. PATIENT ASSESSMENTS AND MEDS CHARTED. LAST DOSE OF REMDESIVIR TO BE GIVEN TODAY. ENCOURAGED AND ASSISTED PATIENT TO TURN IN BED. PATIENT INCONTINENT WITH CONDOM CATHETER IN PLACE, CATH DISLODGE X2 THIS SHIFT AND REPLACED. COMPLETED BED LINEN CHANGED AND PATIENT GIVEN PERINEAL AND BACK CARE THIS SHIFT. PATIENT WAS ABLE TO WORK WITH PT THIS SHIFT. SEE PT NOTE. PATIENT O2 SAT STABLE ON ROOM AIR AND TAKEN OF HIS SUPPLEMENTAL O2 AT 1530. NO COMPLAINTS OF SOB. WILL CTM
[2020-09-09 19:00] VITALS: BP 125/68
[2020-09-10 03:47] VITALS: BP 146/66
--- NOTE | 2020-09-10 05:47 | NUR ---
PT MAKING PROGRESS TOWARDS GOALS. VS NOTED. PT REPORTEDLY TAKEN OFF OXYGEN DURING THE DAY TIME YESTERDAY. NO REPORTS/DENIES ANY SOA OVERNIGHT. LUNGS DIMINISED ON THE LEFT SIDE, MORE CLEAR ON THE RIGHT. ON ROOM AIR OVERNIGHT. STATES HE FEELS HE IS BREATHING NO BETTER BUT NO WORSE THAN YESTERDAY.
[2020-09-10 06:14] LABS: HEMATOCRIT 26.8 % (42.0-52.0); HEMOGLOBIN 8.8 gm/dL (14.0-18.0); MCH 30.6 pg (26.0-34.0); MCV 92.8 fL (80.0-100.0); RBC 2.88 mil/uL (4.50-6.00); RDW 18.4 % (10.5-14.5); WBC 5.2 thou/uL (4.0-11.0)
[2020-09-10 06:34] LABS: CALCIUM 8.6 mg/dL (8.5-10.1); CREATININE 1.4 mg/dL (0.7-1.3); POTASSIUM 3.9 mmol/L (3.5-5.1)
[2020-09-10 07:25] VITALS: BP 139/67
--- NOTE | 2020-09-10 13:35 | NUR ---
BRAD reviewed chart and spoke with nursing and attending physician. Pt remains in Enhanced Isolation due to COVID-19. Pt is afebrile and not on O@. Pt has completed course of Remdesivir. BRAD placed call to pt's room. No answer. BRAD spoke with pt's son, Juve, via phone to discuss discharge plan. BRAD reviewed therapy notes with Juve. Recommendation made for pt to return to post-acute care for continued rehab services. Pt's son is agreeable with plan for pt to return to [facility]. BRAD explained need for insurance authorization. Pt's son verbalized understanding. [employer] planners to fax clinical/therapy updates to [facility] for review. BRAD updated [facility] liaison, who states they will submit for authorization today. Should pt be ready for discharge over the weekend, staff to contact the admissions dept at [facility] to check on status of insurance authorization. Finalized discharge orders/summary will need to be faxed. Chart will need to be copied. BRAD is following to assist as needed with discharge planning. [facility] or [phone]
[2020-09-10 15:34] VITALS: BP 149/73
[2020-09-10 19:28] VITALS: BP 140/68
[2020-09-11 06:17] LABS: ABSOLUTE NEUTROPHILS 4.2 thou/uL (1.4-8.2); BASOPHILS 0.1 % (0.0-2.0); EOSINOPHILS 0.1 % (0.0-3.0); HEMATOCRIT 26.7 % (42.0-52.0); HEMOGLOBIN 8.8 gm/dL (14.0-18.0); LYMPHOCYTES 9.2 % (24.0-44.0); MCH 30.8 pg (26.0-34.0); MCHC 33.2 g/dL (28.0-37.0); MCV 92.8 fL (80.0-100.0); MONOCYTES 7.8 % (1.0-8.0); PLATELET COUNT 87 thou/uL (150-400); POLYS 82.8 % (36.0-66.0); RBC 2.87 mil/uL (4.50-6.00); RDW 19.2 % (10.5-14.5); WBC 5.1 thou/uL (4.0-11.0)
[2020-09-11 06:37] LABS: ALBUMIN 2.3 g/dL (3.4-5.0); CALCIUM 8.4 mg/dL (8.5-10.1); CREATININE 1.2 mg/dL (0.7-1.3); MAGNESIUM 1.4 mg/dL (1.8-2.4); PHOSPHORUS 2.2 mg/dL (2.5-4.9); POTASSIUM 4.1 mmol/L (3.5-5.1); TOTAL BILIRUBIN 0.7 mg/dL (0.2-1.0); TOTAL PROTEIN 5.5 g/dL (6.4-8.2)
[2020-09-11 07:42] VITALS: BP 123/65
--- NOTE | 2020-09-11 07:42 | NUR ---
PROGRESS PT DENIES PAIN BUT REPORTS WEAKNESS AND FATIGUE DOESN'T WANT TO GET OOB. HAS CONDOM CATH AND WAS INCONTINENT OF A MODERATE BROWN SOFT BM. TOLERATING LIQUIDS IN SMALL AMOUNTS LUNGS DIMINISHED NO COUGHING NOTED. SCD'S IN PLACE PT REPOSITIOED HEAD OF BED UP AND HEELS FLOATED. PERICARE AND BARRIER CREAM COMPLETED ORDERED BUTTOCKS AND SCROTUM PINK BUT NO OPEN AREAS NOTED. PT TO DISCHARGE BACK TO [facility] FOR REHAB WHEN INSURANCE APPROVES
[2020-09-11 15:24] VITALS: BP 143/78
--- NOTE | 2020-09-11 18:51 | NUR ---
RN ASSUMED PT'S CARE AT 0700AM, PT IS A&OX3, PT IS CONTINUING ISOLATION FOR POSITIVE COVID, PT'S VS ARE STABLE, PT DENIES PAIN AND SOB
[2020-09-11 21:02] VITALS: BP 138/69
--- NOTE | 2020-09-11 22:20 | NUR ---
PT RESTING QUIETLY AFTER PAIN PILL GIVEN FOR BACK PAIN AND SLEEPING PUILLL GIVEN FOR SLEEP. ENC PT TO TURN SIDE TO SIDE. HE IS WATCHING TV WITHOUT C/O PRESENTY. UNLABORED ON RA. BS DIMINISHED. NO S/S DISTRESS.
[2020-09-12 03:10] VITALS: BP 159/72
--- NOTE | 2020-09-12 05:20 | NUR ---
PT STILL RESTING QUIETLY. VSS AFEBRILE. BP MODERATELY ELEVATED THIS AM. NO C/O PAIN THIS AM. NO S/S DISTRESS.
[2020-09-12 07:49] VITALS: BP 157/70
[2020-09-12 10:22] LABS: CREATININE 1.2 mg/dL (0.7-1.3); POTASSIUM 4.1 mmol/L (3.5-5.1)
[2020-09-12 16:04] VITALS: BP 143/57
--- NOTE | 2020-09-12 17:07 | NUR ---
RN ASSUMED PT'S CARE AT 0700AN, PT IS A&OX3, PT IS CONTINUING ISOLATION FOR POSITIVE COVID, PT'S VS ARE STABLE, PT HAS IV MAGNESIUM 2G REPLACEMENT TODAY , PT DENIES PAIN AND SOB AT THIS TIME.
[2020-09-12 20:30] VITALS: BP 139/75
--- NOTE | 2020-09-12 22:50 | NUR ---
PT ALERT AND ORIENTED X4 . VSS 99% SAT ON RA. NON PRODUCTIVE COUGH NOTED. C/O BACK AND HIP PAIN. MEDICATED WITH TRAMADOL AND MELATONIN GIVEN FOR SLEEP.
[2020-09-13 04:16] VITALS: BP 141/81
[2020-09-13 07:02] LABS: BASOPHILS 0.3 % (0.0-2.0); EOSINOPHILS 0.1 % (0.0-3.0); HEMATOCRIT 26.7 % (42.0-52.0); HEMOGLOBIN 8.9 gm/dL (14.0-18.0); LYMPHOCYTES 6.6 % (24.0-44.0); MCH 31.1 pg (26.0-34.0); MCHC 33.2 g/dL (28.0-37.0); MCV 93.5 fL (80.0-100.0); MONOCYTES 8.2 % (1.0-8.0); POLYS 84.8 % (36.0-66.0); RBC 2.85 mil/uL (4.50-6.00); RDW 20.7 % (10.5-14.5); WBC 7.1 thou/uL (4.0-11.0)
[2020-09-13 07:15] LABS: CALCIUM 8.4 mg/dL (8.5-10.1); CREATININE 1.1 mg/dL (0.7-1.3); MAGNESIUM 2.2 mg/dL (1.8-2.4); POTASSIUM 4.1 mmol/L (3.5-5.1)
[2020-09-13 08:07] VITALS: BP 144/64
[2020-09-13 09:04] LABS: ANISOCYTOSIS 2+; OVALOCYTES 1+
[2020-09-13 09:05] LABS: PLATELET COUNT 124 thou/uL (150-400); POIKILOCYTOSIS SLIGHT
[2020-09-13 09:06] LABS: LARGE PLATELETS FEW
--- NOTE | 2020-09-13 11:06 | PATH ---
[facility] [place] [address] PATHOLOGY RPT PROCEDURE Name: NERY SHERIFF Room #: 357-P ADM IN M.R.#: [id number] Admission: 09/05/20 Date of : 38 Discharge: Report #: [id number] Path Case #: [id number] [facility] Accession Number: [id number] . 01 Material submitted: . body - PERIPHERAL BLOOD FOR FLOW . 01 Clinician provided ICD-10: D61.81 . 01 Clinical history: . NICHOLASI, DAHIANAP . 02 Diagnosis: Special studies report received from [facility], [address] [place] [address], [address], [place], [address], on case [id number], labeled with their number [id number], dated 09/09/2020. . Flow Cytometry: Hematologic Neoplasia Assessment . Clinical History Pancytopenia . Indication for Study Evaluation for pancytopenia . Specimen Peripheral Blood . Viability 96% (7AAD exclusion) . Interpretation Peripheral Blood: - Significantly increased CD4:CD8 ratio (11.6); in absence of T-cell aberrancy. - Partial expression of CD56 on monocytes; in absence of monocytosis. - No significant blast population. - B-cells are polytypic. . Comments These findings are nonspecific and may be reactive. Correlation with available clinical, laboratory, and morphologic data is recommended. . Populations Analyzed Myeloid Blasts: 0.0% No significant blast population detected Lymphocytes: 6% B-cells: 0.2%, polytypic/polyclonal sIg light chain pattern [facility] [address] [place] [address] PATHOLOGY RPT PROCEDURE Name: NERY SHERIFF Room #: 357-P ADM IN M.R.#: [id number] Admission: 09/05/20 Date of : 38 Discharge: Report #: [id number] Path Case #: [id number] T-cells: no significant abnormalities of the markers tested CD4+ T-cells: 4.8% (including 0.1% CD57+ cells) CD8+ T-cells: 0.4% (including 0.2% CD57+ cells) CD4:CD8: 11.6 (increased) NK cells: 0.5% Neutrophils: 86% No significant abnormalities of the markers tested Monocytes: 7.8% Partial CD56 ( 29% of monocytes positive) Eosinophils: 0.2% No relative increase Basophils: 0.1% No relative increase . Morphologic Evaluation A slide was reviewed for quality control microbiologist purposes only. . Specimen Description Total Cell Yield: 1.62 X 10 and 6 . Reagent(s) Used CD2, CD3, CD4, CD5, CD7, CD8, CD10, CD11b, CD13, CD14, CD16, CD19, CD20, CD33, CD34, CD38, CD45, CD56, CD57, CD64, CD117, HLA-DR, kappa, lambda . at [facility]. Zeferino Washington MD Pathologist . . Intended Use Flow cytometry is optimally used to immunophenotypically characterize abnormal populations when they are detected. Negative flow cytometry results do not exclude lymphoma or neoplasia. Possible false negative flow cytometry results may occur in, but are not limited to, the following: neoplastic cells in Hodgkin lymphoma are not typically adequately represented by routine clinical flow cytometry; neoplastic cells may be lost or inadequately represented due to degeneration, sample processing, sampling artifact, or patchy involvement; plasma cells are typically underrepresented by flow cytometry; immature cells/blasts may be underrepresented due to hemodilution; myeloproliferative disorders and low grade myelodysplasia may not have immunophenotypic abnormalities or increased blasts. Correlation with all available clinical, laboratory, and morphologic data is always necessary to assess for the possibility of false negative flow cytometry results and to establish a diagnosis. Each marker in this analysis was used to assess for potential antigenic abnormalities or to evaluate detected abnormalities. . Any image or images that accompany this report are career representative images only and should not be used to render a diagnosis. . [address] [address] PATHOLOGY RPT PROCEDURE Name: NERY SHERIFF Room #: 357-P ADM IN M.R.#: [id number] Admission: 09/05/20 Date of : 38 Discharge: Report #: [id number] Path Case #: [id number] Disclaimer(s) This test was developed and its performance characteristics determined by [employer]. It has not been cleared or approved by the Food and Drug Administration. . Performing Labs [facility] is a business unit of [facility] a wholly-owned subsidiary of [employer]. . This test was performed at [facility]. at [address], [place], [address] - Catcher Filter Tip: Yeyo Sparks MD. . For inquiries, the physician may contact Lab: [phone] . A complete copy of the report is on file. . Professional services performed by [employer]. at [address], [place] [address]. Technical services performed by [employer]. at [address], [place] [address]. . (CLW:[facility] 09/10/2020) . [facility] 09/10/2020 1005 Local . 02 Electronically signed: . Gabrielle Serra MD, Pathologist NPI- [id number] . 02 Pathologist provided ICD-10: D61.818 . 02 CPT . 113267 Specimen Comment: A courtesy copy of this report has been sent to [phone] Specimen Comment: [phone], Specimen Comment: Report sent to ,DR SCALES / DR MENDOZA Performed at: 01 [facility] [address] [facility] [address], [place] [id number] MD Quinn Garrison MD Phone: [phone] Performed at: 02 [facility] [address] [id number] [place] [address] PATHOLOGY RPT PROCEDURE Name: NERY SHERIFF Room #: 357-P ADM IN M.R.#: [id number] Admission: 09/05/20 Date of : 38 Discharge: Report #: [id number] Path Case #: [id number] MD Mark Schwarz MD Phone: [phone]
--- NOTE | 2020-09-13 11:11 | NUR ---
Assess due to length of stay. Admit with COVID+, acute respiratory failure. Unable to visit with pt. Chart reviewed, eating >75% of meals. Wts variable in past but usually 175-200 lb over past year. Likely discharge soon. Low nutrition risk
--- NOTE | 2020-09-13 15:16 | NUR ---
BRAD reviewed chart and spoke with nursing and attending physician. Pt remains in Enhanced Isolation due to COVID-19. Pt is afebrile and not requiring O2. CT abdomen/pelvis ordered today. BRAD provided update to [facility] liaison. digital media planner to fax clinical/therapy updates to [facility] for review. Insurance authorization for SNF is pending. BRAD is following to assist as needed with discharge planning.
[2020-09-13 15:23] VITALS: BP 133/60
--- NOTE | 2020-09-13 17:13 | NUR ---
FAXED CLINICAL UPDATE TO [facility] RECEIVED CONFIRMATION AND SPOKE WITH ANDREINA MACHADO SHE RECEIVED UPDATE.
[2020-09-13 19:56] VITALS: BP 126/66
--- NOTE | 2020-09-14 03:46 | NUR ---
PT ALERT AND ORIENTED X4. VSS AFEBRILE. UNLABORED PRESENTLY SLEEPING QUIETLY ON RA. BED ALARM ON REFUSED SCDS. HEPARIN SC GIVEN. NO S/S BLEEDING NOTED. NO S/S DISTRESS.
[2020-09-14 04:13] VITALS: BP 142/67
[2020-09-14 07:50] VITALS: BP 137/55
[2020-09-14] MEDS ORDERED: PEPCID20 MG PO (13:48)
[2020-09-14] MEDS ORDERED: ZINC SULFATE 2220 MG PO (13:48)
[2020-09-14] MEDS ORDERED: ACEROLA C500 MG PO (13:48)
[2020-09-14] MEDS ORDERED: CEFDINIR300 MG PO (13:48)
[2020-09-14] MEDS ORDERED: VITAMIN B-1100 M2 PO (13:48)
[2020-09-14] MEDS ORDERED: VITAMIN D325 MC1 PO (13:48)
[2020-09-14] MEDS ORDERED: PREDNISONE 20 M20 M1 PO (13:48)
[2020-09-14] MEDS ORDERED: MELATONIN5 M1 PO (13:48)
--- NOTE | 2020-09-14 14:33 | NUR ---
PT DISCHARGING TODAY BACK TO [facility] FAXED DC ORDERS/SUMMARY TO FACILITY SPOKE WITH ANDREINA IN ADM SHE RECEIVED ORDERS AND ARRANGED TRANSPORT BY [facility] FOR 1600 TODAY. SPOKE WITH PT'S SON (UMA) OF DC AND TIME OF TRANSPORT. UNIT NOTIFIED AND CHART COPY PER US. RN TO CALL REPORT TO [phone].
--- NOTE | 2020-09-14 16:10 | NUR ---
DISCHARGE NOTE: SW reviewed chart and spoke with nursing and attending physician. Pt remains in Enhanced Isolation due to COVID-19. Pt is afebrile and not requiring O2. Pt is medically stable for discharge to [facility] SNF today. Insurance authorization obtained. Stretcher van transportation scheduled for 1600 per facility's arrangements. retail planner coordinated and notified family. Chart copy requested. Nursing provided with number to call report. No additional SW needs identified at this time, but is available to assist should needs arise.
--- NOTE | 2020-09-14 16:14 | NUR ---
DC TO SNF AT 1600.
== END 2020-09-14 16:05 | DRG 871 ==
LOC: ER 00:01 → 3W 02:31 → EROBS 02:31 → 3W 11:50
PROVIDERS: Emergency Medicine; Internal Medicine; Internal Medicine Hematology & Oncology; Nurse Practitioner Family; Specialist; ADMIT Hospitalist; ATTEND Hospitalist
PROC: XW033E5 Introduction of Remdesivir Anti-infective into Peripheral Vein, Percutaneous Approach, New Technology Group 5 (ICD-10-PCS; principal; 2020-09-05)
DX: A41.89 Other specified sepsis (principal); U07.1 COVID-19; J96.01 Acute respiratory failure with hypoxia; J18.9 Pneumonia, unspecified organism; J12.89 Other viral pneumonia; I50.43 Acute on chronic combined systolic (congestive) and diastolic (congestive) heart failure; D61.818 Other pancytopenia; I13.0 Hypertensive heart and chronic kidney disease with heart failure and stage 1 through stage 4 chronic kidney disease, or unspecified chronic kidney disease; I48.91 Unspecified atrial fibrillation; N18.9 Chronic kidney disease, unspecified; Z96.641 Presence of right artificial hip joint; I25.10 Atherosclerotic heart disease of native coronary artery without angina pectoris; E78.5 Hyperlipidemia, unspecified; I71.4 Abdominal aortic aneurysm, without rupture; I73.9 Peripheral vascular disease, unspecified; G47.30 Sleep apnea, unspecified; K21.9 Gastro-esophageal reflux disease without esophagitis; E11.40 Type 2 diabetes mellitus with diabetic neuropathy, unspecified; K80.80 Other cholelithiasis without obstruction; M10.9 Gout, unspecified; R16.1 Splenomegaly, not elsewhere classified; Z95.820 Peripheral vascular angioplasty status with implants and grafts; Z86.73 Personal history of transient ischemic attack (TIA), and cerebral infarction without residual deficits; Z95.1 Presence of aortocoronary bypass graft; Z79.01 Long term (current) use of anticoagulants; Z95.5 Presence of coronary angioplasty implant and graft; Z79.82 Long term (current) use of aspirin; Z79.899 Other long term (current) drug therapy; Z88.5 Allergy status to narcotic agent; Z88.8 Allergy status to other drugs, medicaments and biological substances
CPT/HCPCS: 10879

== ENCOUNTER 2020-09-19 05:41 | Inpatient (IN) | payer OTHER, MEDICAID ==
[~2020-09-19] VITALS: Ht 180.3 cm; Wt 84.3 kg
[2020-09-19] VITALS (20 sets, daily range): BP systolic 98–176; BP diastolic 44–101
[~2020-09-19 05:41] MED LIST changes: +ACEROLA C500 MG PO; +CALMOSEPTINE O3.5 GM; +CEFDINIR300 MG PO; +MITIGARE0.6 MG PO; +MUCINEX600 MG PO; +ONDANSETRON HCL4 M2 PO; +PEPCID20 MG PO; +PREDNISONE 20 M20 M1 PO; +PROAIR HFA8.5 GM INH; +TYLENOL325 MG PO; +VITAMIN B-1100 M2 PO; +VITAMIN D325 MC1 PO; +VOLTAREN GEL 1100 G1 TOP; +ZINC SULFATE 2220 MG PO
[2020-09-19] MEDS ORDERED: FUROSEMIDE 20 M20 MG PO (06:05)
[2020-09-19] MEDS ORDERED: LEVOFLOXACIN750 MG PO (06:06)
[2020-09-19 06:11] LABS: ABSOLUTE NEUTROPHILS 17.7 thou/uL (1.4-8.2); BASOPHILS 0.2 % (0.0-2.0); HEMATOCRIT 30.1 % (42.0-52.0); HEMOGLOBIN 9.9 gm/dL (14.0-18.0); LYMPHOCYTES 1.9 % (24.0-44.0); MCH 30.8 pg (26.0-34.0); MCHC 32.9 g/dL (28.0-37.0); MCV 93.5 fL (80.0-100.0); MONOCYTES 2.3 % (1.0-8.0); PLATELET COUNT 152 thou/uL (150-400); POLYS 95.6 % (36.0-66.0); RBC 3.22 mil/uL (4.50-6.00); RDW 20.5 % (10.5-14.5); WBC 18.5 thou/uL (4.0-11.0)
[2020-09-19 06:11] LABS: BE(vivo) -1.7 mmol/L (-2 to +3); HCO3 22.1 mmol/L (22.0-26.0); PCO2 34.1 mmHg (35.0-45.0); PO2 94.5 mmHg (80.0-100.0); pH 7.429 (7.360-7.450); sO2 97.5 % (92.0-98.0)
[2020-09-19 06:14] LABS: ANION GAP 8 mmol/L (7-16); BUN 39 mg/dL (7-18); CALCIUM 8.7 mg/dL (8.5-10.1); CHLORIDE 93 mmol/L (98-107); CO2 23 mmol/L (21-32); CREATININE 1.2 mg/dL (0.7-1.3); GLUCOSE 109 mg/dL (74-106); POTASSIUM 5.5 mmol/L (3.5-5.1); SODIUM 124 mmol/L (136-145)
[2020-09-19 06:24] LABS: ALBUMIN 2.5 g/dL (3.4-5.0); APTT 33.3 Seconds (24.5-32.8); INR 1.3; MAGNESIUM 1.6 mg/dL (1.8-2.4); SGOT 28 U/L (15-37); SGPT 27 U/L (30-65); TOTAL BILIRUBIN 0.9 mg/dL (0.2-1.0); TOTAL PROTEIN 6.4 g/dL (6.4-8.2); TROPONIN-I <0.06 ng/mL (<0.06)
[2020-09-19 06:38] LABS: URINE BILIRUBIN NEGATIVE (Negative); URINE BLOOD NEGATIVE (Negative); URINE CLARITY CLEAR; URINE COLOR YELLOW; URINE GLUCOSE-RANDOM* NEGATIVE (Negative); URINE KETONES NEGATIVE (Negative); URINE LEUKOCYTES-REFLEX NEGATIVE (Negative); URINE NITRITE-REFLEX NEGATIVE (Negative); URINE PROTEIN (DIPSTICK) 1+ (Negative); URINE SPECIFIC GRAVITY 1.025 (1.005-1.035); URINE UROBILINOGEN 0.2 E.U./dl (0.2-1.0)
[2020-09-19 07:08] LABS: CASTS None Seen /LPF (None Seen); SQUAMOUS 0-3 Few /LPF (0-3); URINE WBC-REFLEX 0-5 Rare /HPF (0-5)
[2020-09-19 07:09] LABS: AMORPHOUS URATES Few /LPF (None Seen); BACTERIA-REFLEX 1-9 Few /HPF (None Seen); URINE RBC None Seen /HPF (0-2)
[2020-09-19 09:29] LABS: ANISOCYTOSIS 2+; OVALOCYTES FEW
--- NOTE | 2020-09-19 18:44 | NUR ---
1315- Patient here from ER. Stable on 6L NC. Continues Afib on Cardizem gtt at 10 mg/hr. Desats with coughing, returns to normal without intervention. Blood pressures stable. Adequate u/o. Notified patient's son and S.O. and discussed plan of care. See documentation on interventions for assessment details.
[2020-09-20] VITALS (40 sets, daily range): BP systolic 104–135; BP diastolic 45–81
--- NOTE | 2020-09-20 06:00 | NUR ---
HAS RESTED QUIETLY ALL NIGHT. 1500 CC UO THIS SHIFT. ONLY REQUEST IS ICE WATER. REMAINS INB AFIB CARDIZEM GTT AT 10 MG/HR. WILL CONT TO MONITOR.
--- NOTE | 2020-09-20 07:43 | EKG ---
[facility] [place] [address] [place] [address] ELECTROCARDIOGRAM REPORT Name: NERY SHERIFF Room #: 240-P ADM IN M.R.#: [id number] Admission: 09/19/20 Attend Phys: Jam Arguelles MD Discharge: Date of : 39 Report #: [id number] THIS REPORT FOR: cc: Azam Galindo MD, Christopher B. MD Lundgren,Parker Maldonado MD [facility] ~ THIS REPORT FOR: //name// [facility] ED Test Date: 2020-09-19 Test Time: 05:51:20 Pat Name: NERY SHERIFF Department: Room: 240 Gender: M Yard Labor Supervisor: : 1940 Requested By: Yasmani Hunt Order Number: [id number] MD: Parker Goodwin Measurements Intervals [place] Rate: 146 P: OR: QRS: 152 QRSD: 142 T: 3 QT: 300 QTc: 468 Interpretive Statements Atrial fibrillation with a rapid ventricular response Right bundle branch block Compared to ECG 09/05/2020 00:48:06 Ventricular premature complex(es) no longer present Electronically Signed On 09-20-2020 7:43:08 JBOSS DEVELOPER by Parker Goodwin [email or web address] <ELECTRONICALLY SIGNED> By: Parker Goodwin MD, [facility] 09/20/20 0743 0551 0551 Parker Goodwin MD, [facility] /EPI
--- NOTE | 2020-09-20 08:08 | HC ---
[facility] [address] [place] [address] CONSULTATION Name: NERY SHERIFF Room #: 240-P ADM IN M.R.#: [id number] Admission: 09/19/20 Attend Phys: Jam Arguelles MD Discharge: Date of : 39 Report #: [id number] THIS REPORT FOR: cc: Azam Galindo MD, Christopher B. MD Park, Jin S. MD ~ DATE OF SERVICE: 09/19/2020 CARDIOLOGY CONSULTATION INDICATION: CHF. HISTORY OF PRESENT ILLNESS: This is an 80-year-old gentleman with a history of recent COVID pneumonitis, permanent atrial fibrillation, CABG, PAD, CHF secondary to diastolic dysfunction, hypertension, hyponatremia, history of falls, GI bleed, transferred from a group home facility for respiratory failure. He was recently hospitalized at [facility] for COVID-19 pneumonitis and transferred to the group home facility on 09/14/2020. He developed shortness of breath even on oxygen via nasal cannula. He denies any chest pains, fever or cough. He has a history of atrial fibrillation, not on beta-balwinder due to recent episodes of bradycardia. He is not on anticoagulation therapy due to recurrent falls and GI bleed. PAST MEDICAL HISTORY: CABG in 1992, peripheral vascular disease, permanent atrial fibrillation, not on anticoagulation therapy, history of falls, generalized weakness. Bradycardia, history of hyponatremia and his diuretic was held. CURRENT MEDICATIONS: Include cefdinir, furosemide 20 mg daily, atorvastatin 20 mg daily, aspirin, Levaquin, Neurontin. ALLERGIES: ACETAMINOPHEN AND HYDROCODONE. SOCIAL HISTORY: Negative for tobacco use. FAMILY HISTORY: Noncontributory. REVIEW OF SYSTEMS: A full 10-point review of systems performed. Only the pertinent positives and negatives are described in the HPI. PHYSICAL EXAMINATION: VITAL SIGNS: Blood pressure is 130/70, heart rate is 140 beats per minute. GENERAL APPEARANCE: This is an elderly appearing male, in no acute distress. HEENT: Normocephalic, atraumatic. Oral mucosa moist. [facility] [address] [place] [address] CONSULTATION Name: NERY SHERIFF Room #: 240-P [facility] IN .R.#: [id number] Admission: 09/19/20 Attend Phys: Jam Arguelles MD Discharge: Date of : 39 Report #: [id number] NECK: Supple. LUNGS: Bibasilar crackles. CARDIAC: Tachycardic. S1, S2 positive. ABDOMEN: Soft, nontender. EXTREMITIES: No cyanosis, trace to 1+ edema. LABORATORY VALUES: White count is 18.5, hemoglobin is 9.9, platelet count is 152. Sodium is 124, creatinine is 1.2. ASSESSMENT AND PLAN: 1. Respiratory failure/COVID-19, rule out nosocomial pneumonia. Check cultures, consider antibiotics. Pulmonary evaluation. 2. Congestive heart failure, acute on chronic diastolic heart failure. Unclear if this is a result of rapid AFib due to sepsis. Manage with IV Lasix, follow up sodium levels. 3. Atrial fibrillation with rapid rate, most recently, his AFib rates were under control, not on a beta-balwinder due to prior history of bradycardia. Inciting event may be sepsis or heart failure. Not on anticoagulation therapy due to frequent falls and previous gastrointestinal bleed. 4. Coronary artery disease/coronary artery bypass graft, stable with no complaints of chest pain. Troponin level is negative. 5. Hypertension, continue with diuretics. <ELECTRONICALLY SIGNED> By: Solomon Love MD 09/20/20 0808 1100 1200 Solomon Love MD /nt
[2020-09-20 08:46] LABS: ABSOLUTE NEUTROPHILS 8.9 thou/uL (1.4-8.2); BASOPHILS 0.3 % (0.0-2.0); EOSINOPHILS 0.1 % (0.0-3.0); HEMOGLOBIN 8.2 gm/dL (14.0-18.0); LYMPHOCYTES 2.5 % (24.0-44.0); MCHC 32.8 g/dL (28.0-37.0); MCV 94.5 fL (80.0-100.0); MONOCYTES 2.4 % (1.0-8.0); POLYS 94.7 % (36.0-66.0); RBC 2.65 mil/uL (4.50-6.00); RDW 20.2 % (10.5-14.5); WBC 9.4 thou/uL (4.0-11.0)
[2020-09-20 08:58] LABS: CREATININE 1.6 mg/dL (0.7-1.3); MAGNESIUM 1.5 mg/dL (1.8-2.4); POTASSIUM 4.3 mmol/L (3.5-5.1)
[2020-09-20 09:46] LABS: PLATELET ESTIMATE DECREASED
[2020-09-20 09:47] LABS: PLATELET COUNT 81 thou/uL (150-400)
--- NOTE | 2020-09-20 11:13 | 2DMMODE ---
[address] [address] 2 D/M-MODE ECHOCARDIOGRAM Name: NERY SHERIFF Room #: 240-P ADM IN M.R.#: [id number] Admission: 09/19/20 Attend Phys: Jam Arguelles MD Discharge: Date of : 39 Report #: [id number] THIS REPORT FOR: cc: Azam Galindo MD, Christopher B. MD Park, Jin S. MD ~ APPROVED REPORT Study performed: 09/20/2020 11:02:21 EXAM: Comprehensive 2D, Doppler, and color-flow Echocardiogram Patient Location: ICU Room #: 240 Status: routine BSA: 1.97 HR: 64 bpm BP: 125/57 mmHg Rhythm: Atrial Fibrillation Other Information Study Quality: Good Indications Congestive Heart Failure Atrial Fibrillation CAD 2D Dimensions IVC: 25.00 mm Tricuspid Valve TR Peak Sukhjinder.: 4.04 m/s TR Peak Gr.: 65.40 mmHg PA Pressure: 75.00 mmHg Left Ventricle The left ventricle is normal size. There is normal LV segmental wall motion. There is normal left ventricular wall thickness. The left ventricular systolic function is normal. The left ventricular ejection fraction is within the normal range. LVEF is 55-60%. This study is not technically sufficient to allow evaluation of the LV diastolic function. Right Ventricle [address] [address] 2 D/M-MODE ECHOCARDIOGRAM Name: NERY SHERIFF Room #: 240-P ADM IN M.R.#: [id number] Admission: 09/19/20 Attend Phys: Jam Arguelles MD Discharge: Date of : 39 Report #: [id number] Right ventricle is dilated. The right ventricular systolic function is normal. Atria Left atrium is dilated. Right atrium is dilated. Aortic Valve The aortic valve is normal in structure. Mitral Valve The mitral valve is normal in structure. Mild mitral regurgitation. No evidence of mitral valve stenosis. Tricuspid Valve The tricuspid valve is normal in structure. There is moderate tricuspid regurgitation. Estimated PAP 75 mmHg. There is severe pulmonary hypertension. Pulmonic Valve The pulmonary valve is normal in structure. Great Vessels The aortic root is normal in size. IVC is dilated and collapses <50% with inspiration. Pericardium There is no pericardial effusion. <Conclusion> The left ventricle is normal size. There is normal left ventricular wall thickness. The left ventricular systolic function is normal. Right ventricle is dilated. Right atrium is dilated. The aortic valve is normal in structure. Mild mitral regurgitation. There is moderate tricuspid regurgitation. Estimated PAP 75 mmHg. There is severe pulmonary hypertension. <ELECTRONICALLY SIGNED> By: Solomon Love MD 09/20/20 1113 111 1113 Solomon Love MD /INF
--- NOTE | 2020-09-20 11:23 | NUR ---
Assess due to RD consult for poor intake. Pt recently discharged from this facility 09/14 following COVID+ treatment. During that time, was eating well and no weight changes from usual trends 175-200 lb. Has hx acute on chronic CHF so weights fluctuate. Current wt upon readmit still stable [address] has assessed and recs for mech altered diet with possible need for thickened liquids. Will follow up in few days to determine intake patterns and start oral supplement if needed. Low nutrition risk at this time
--- NOTE | 2020-09-20 16:20 | NUR ---
PT IS FROM [facility] FAXED CLINICAL UPDATE TO FACILITY RECEIVED CONFIRMATION. DP TO FOLLOW.
--- NOTE | 2020-09-20 16:40 | NUR ---
Case opened to follow for support and dc planning. Pt known to cm from previous admissions. The pt was dc'd back to SNF at [facility] recently with ins approval. He had been there prior for rehab but was then readmitted due to Covid+ and respiratory distress. The pt is now in the ICU but is off bipap. He is on 10 liters of oxygen and cardizem gtt. Nursing reports he is a&ox4 and has been able to talk on his the phone with his son/sae An this morning. [facility] updated. They can accept the pt back covid+ for additional rehab is needed. Will ask for therapy evals as appropriate. The pt normally lives at home with his sign other and was indep with gait and adl's. Will follow along for likely dc back to SNF when medically stable.
--- NOTE | 2020-09-20 19:57 | NUR ---
CARDIZEM GTT TURNED ON AND STARTED ON PO CARDIZEM ORDERED. REMAINS IN AFIB HR IN 40-60'S TODAY FOLLOWING PO CARDIZEM. SPOKE WITH PT'S SON UMA AND UPDATED HIM THIS AFTERNOON. WEANING O2 ABLE TODAY. ABLE TO WEAN FROM 12L/NC TO 8L/NC. UP TO CHAIR WITH PHYSICAL THERAPY THIS AFTERNOON. TOLERATING PO WELL, GOOD APPETITE TODAY. REPORT GIVEN TO [employer] AGENCY PRINCIPAL RN.
[2020-09-21] VITALS (16 sets, daily range): BP systolic 115–134; BP diastolic 49–65
--- NOTE | 2020-09-21 04:40 | NUR ---
PT SLEEPING OFF/ON DURING NIGHT. MONITORS SHOWS HR 40'S TO 50'S. BP TOLERATES 120/50. UO ADEQUATE. LS-COARSE. NON PRODUCTIVE COUGH. 02SAT 100. DECREASED TO 6LHFC. PROGRESSING TOWARD GOALS. CONT PLAN OF CARE
[2020-09-21 06:27] LABS: HEMATOCRIT 25.2 % (42.0-52.0); HEMOGLOBIN 8.3 gm/dL (14.0-18.0); MCH 30.7 pg (26.0-34.0); MCHC 32.8 g/dL (28.0-37.0); MCV 93.7 fL (80.0-100.0); RBC 2.69 mil/uL (4.50-6.00); RDW 20.2 % (10.5-14.5); WBC 3.3 thou/uL (4.0-11.0)
[2020-09-21 06:47] LABS: CALCIUM 8.4 mg/dL (8.5-10.1); CREATININE 1.6 mg/dL (0.7-1.3); POTASSIUM 3.9 mmol/L (3.5-5.1)
--- NOTE | 2020-09-21 17:37 | NUR ---
FAXED CLINICAL UPDATE TO [facility] SPOKE WITH ANDREINA IN ADM SHE RECEIVED UPDATE.
--- NOTE | 2020-09-21 18:32 | NUR ---
PATIENT 8-10L NASAL CANULA. PROGRESSING TOWARDS DISMISSAL GOALS PATIENT CHANGED TO CRITICAL CARE TELE STATUS. HELD PO DILTIAZEM TODAY FOR HR LESS THAN 60. MD AWARE. PATIENT REFUSES TO WORK WITH PHYSICAL THERAPY TODAY. PATIENT REFUSED TURNS AT TIMES TODAY. REMINDED PATIENT TO MOVE AND SHIFT WEIGHT WHILE IN BED. SPOKE WITH SIGNIFICANT OTHER ELIDA GANDHI TODAY ABOUT PATIENT STATUS.
--- NOTE | 2020-09-21 23:20 | NUR ---
TRANSFERED PT TO [address] [place], [place] [id number]. UPDATED SON ON ROOM NUMBER. PT CONT ON 10 HFC-NO RESP DISTRESS IN BED. CONT ON MONITOR AFIB IN THE 50'S. BP WNL. GOOD UO. NOE NECTAR THICK LIQUID. PM CARE DONE INCLUDING SHAVE. RAZOR, PHONE, AND CHARGERS SENT WITH PT. AND PT DENTURES IN MOUTH.
--- NOTE | 2020-09-21 23:50 | NUR ---
PHONE REPORT RECEIVED AT 2215; PT TRANSPORTED BY BED FROM ICU TO ROOM 357 AT 2245. PT A&Ox4, AFEBRILE, ON 10L O2 NC, MUSE IN PLACED. LUNGS WHEEZY WITH SOME FINE CRACKLES IN BASES. AFIB W/ BBB AND HR IN 60'S. IVF AND ABX INFUSING. WILL CONTINUE TO MONITOR.
[2020-09-22 03:56] VITALS: BP 140/64
[2020-09-22 07:37] VITALS: BP 149/66
[2020-09-22 10:27] LABS: ALBUMIN 2.1 g/dL (3.4-5.0); CALCIUM 7.7 mg/dL (8.5-10.1); CREATININE 1.7 mg/dL (0.7-1.3); POTASSIUM 3.2 mmol/L (3.5-5.1); TOTAL BILIRUBIN 0.8 mg/dL (0.2-1.0); TOTAL PROTEIN 5.8 g/dL (6.4-8.2)
[2020-09-22 11:00] VITALS: BP 134/64
--- NOTE | 2020-09-22 14:35 | NUR ---
SW reviewed chart and spoke with nursing and attending physician. Pt was transferred to from ICU. In Enhanced Isolation due to COVID-19. Pt is afebrile and on 10L of O2. Pt required 16L with activity. Pt is on IV abx, IV steroids and IV lasix. BRAD updated [facility] liaison. Plan is for pt to return to [facility] when medically stable. BRAD is following to assist as needed with discharge planning.
[2020-09-22 15:12] VITALS: BP 155/62
--- NOTE | 2020-09-22 19:15 | NUR ---
PATIENT ALERT ORIENTED X4. HE IS ALERT ORIENTED X4. WILL CONT WITH PLAN OF CARE.
[2020-09-22 19:18] VITALS: BP 153/60
[2020-09-23 02:53] VITALS: BP 143/58
[2020-09-23 06:04] LABS: HEMATOCRIT 28.9 % (42.0-52.0); HEMOGLOBIN 9.6 gm/dL (14.0-18.0); MCH 30.6 pg (26.0-34.0); MCHC 33.2 g/dL (28.0-37.0); MCV 92.4 fL (80.0-100.0); RBC 3.13 mil/uL (4.50-6.00); RDW 19.9 % (10.5-14.5); WBC 6.5 thou/uL (4.0-11.0)
--- NOTE | 2020-09-23 06:23 | NUR ---
PATIENT ASSESSED AND IS ALERT X 4. SKIN WARM AND DRY. RESP EVEN AND UNLABORED. LUNGS COURSE. IV PATENT AND FLUIDS INFUSING WITH ANTIBIOTICS. RIGHT HEEL WOUND INTACT. BLIND IN LEFT EYE. TELE- SHOWS CONTROL A-FIB. PUREED NECTAR THICKEN. FEEDS SELF. TAKING CARDIZEM FOR HEART. ON 02 AT 10LNC. RESTING WELL. MOVES HIMSELF. REMAINS + COVID. INCONT X 4 TIMES. MON ROOM AIR. CONT PLAN OF CARE.
[2020-09-23 06:24] LABS: CALCIUM 7.8 mg/dL (8.5-10.1); CREATININE 1.7 mg/dL (0.7-1.3); MAGNESIUM 1.4 mg/dL (1.8-2.4); POTASSIUM 3.3 mmol/L (3.5-5.1)
[2020-09-23 07:14] VITALS: BP 151/65
[2020-09-23 11:41] VITALS: BP 157/56
[2020-09-23 16:07] VITALS: BP 168/63
--- NOTE | 2020-09-23 16:11 | NUR ---
BRAD reviewed chart and spoke with nursing and attending physician. Pt remains in Enhanced Isolation due to COVID-19. Pt is afebrile and requiring 10L of O2. Pt is on IV abx and IV steroids. Pt also on IV Lasix. BRAD faxed clinical/therapy updates to [facility] for review. BRAD discussed case with [facility] liaison. [facility] is able to provide up to 10L of O2. Will need insurance authorization for pt to return using his skilled benefit. BRAD is following to assist as needed with discharge planning.
--- NOTE | 2020-09-23 18:38 | NUR ---
RN ASSUMED PT'S CARE AT 0700AM, PT IS A&OX3, PT IS COOPERATIVE, PT IS CONTINUING IV ABX , PT IS ON HIGH FLOW O2 10L/MIN/NC TO KEEP O2SAT AT 92-95%, PT 'S O2SAT IS REDUCING WITH PT'S ACTIVITIES, PT 'S VS ARE STABLE AT THIS TIME.
[2020-09-23 19:15] VITALS: BP 163/71
[2020-09-23 20:37] LABS: CALCIUM 7.9 mg/dL (8.5-10.1); CREATININE 1.7 mg/dL (0.7-1.3); MAGNESIUM 1.4 mg/dL (1.8-2.4); POTASSIUM 3.3 mmol/L (3.5-5.1)
[2020-09-24 04:05] VITALS: BP 177/79
[2020-09-24 06:16] LABS: HEMATOCRIT 22.6 % (42.0-52.0); MCHC 32.2 g/dL (28.0-37.0); MCV 93.2 fL (80.0-100.0); RBC 2.42 mil/uL (4.50-6.00); RDW 20.6 % (10.5-14.5); WBC 4.2 thou/uL (4.0-11.0)
[2020-09-24 06:22] LABS: HEMOGLOBIN 7.3 gm/dL (14.0-18.0)
[2020-09-24 06:44] LABS: MAGNESIUM 1.5 mg/dL (1.8-2.4); PHOSPHORUS 2.3 mg/dL (2.5-4.9)
[2020-09-24 06:47] LABS: CALCIUM 7.7 mg/dL (8.5-10.1); CREATININE 2.3 mg/dL (0.7-1.3); POTASSIUM 3.8 mmol/L (3.5-5.1); TOTAL BILIRUBIN 0.5 mg/dL (0.2-1.0); TOTAL PROTEIN 5.8 g/dL (6.4-8.2)
[2020-09-24 08:10] VITALS: BP 172/87
[2020-09-24 11:19] VITALS: BP 179/87
[2020-09-24 15:36] VITALS: BP 173/87
--- NOTE | 2020-09-24 15:43 | NUR ---
BRAD reviewed chart and spoke with nursing and attending physician. Pt remains in Enhanced Isolation due to COVID-19. Pt is afebrile and on 8-10L of O2. Pt is on IV lasix, IV abx and IV steroids. No weekend discharge planned. Pt will need insurance auth to return to [facility] using his skilled benefit. BRAD updated [place] liaison. Will need updated clinical/therapy info faxed to the facility for review and to submit to insurance. BRAD is following to assist as needed with discharge planning.
[2020-09-24 19:14] VITALS: BP 166/79
--- NOTE | 2020-09-24 19:53 | NUR ---
PATIENT HAS RESTED IN BED THROUGHOUT THE DAY. RESPIRATIONS ARE EVEN BUT CONT ON OXYGEN. WILL CONT WITH PLAN OF CARE.
[2020-09-25 03:30] VITALS: BP 177/84
--- NOTE | 2020-09-25 04:10 | NUR ---
ASSESSED AT START OF SHIFT. PT RESTING IN BED. IV INTACT WITH FLUIDS INFUSING. BSG CHECKED NO COVERAGE POOR APPETITE. MEDS GIVEN ONE AT A TIME WIH APPLE SAUCE. FOLLEY INTACT AND PATENT. PT INCONTINENT OF BOWEL. REPOSITIONED FOR COMFORT FALL PREC IN PLACE AND LIGHT AT REACH WILL CONT TO MONITOR.
[2020-09-25 08:43] LABS: CALCIUM 8.2 mg/dL (8.5-10.1); CREATININE 1.4 mg/dL (0.7-1.3); MAGNESIUM 1.8 mg/dL (1.8-2.4); PHOSPHORUS 2.3 mg/dL (2.5-4.9); POTASSIUM 4.1 mmol/L (3.5-5.1)
[2020-09-25 08:47] VITALS: BP 185/103
[2020-09-25 10:07] LABS: ABSOLUTE NEUTROPHILS 10.6 thou/uL (1.4-8.2); BASOPHILS 0.3 % (0.0-2.0); HEMATOCRIT 30.6 % (42.0-52.0); LYMPHOCYTES 3.5 % (24.0-44.0); MCHC 32.5 g/dL (28.0-37.0); MCV 95.1 fL (80.0-100.0); MONOCYTES 2.1 % (1.0-8.0); PLATELET COUNT 111 thou/uL (150-400); POLYS 94.1 % (36.0-66.0); RBC 3.21 mil/uL (4.50-6.00); RDW 20.2 % (10.5-14.5); WBC 11.3 thou/uL (4.0-11.0)
[2020-09-25 12:50] VITALS: BP 161/84
[2020-09-25 17:30] VITALS: BP 152/67
--- NOTE | 2020-09-25 17:53 | NUR ---
PATIENT APPEARS TO MUCH CONFUSED TODAY THAN NORMAL. HE KEEPS CALLING OUT FOR THE NURSE BUT WHEN NURSE RESPONSE HE STATES HE DOES NOT NEED ANYTHING. NOT EASILY REDIRECTED. WILL CONT WITH PLAN OF CARE.
[2020-09-25 19:21] VITALS: BP 156/70
[2020-09-26 03:07] VITALS: BP 173/83
--- NOTE | 2020-09-26 03:15 | NUR ---
PT LYING IN BED. DENIES PAIN. RESTING COMFORTABLY. NO NEEDS VOICED. CALL LIGHT WITHIN REACH. FREQUENT OBSERVATION.
[2020-09-26 07:27] VITALS: BP 172/81
[2020-09-26 11:09] VITALS: BP 175/90
[2020-09-26 12:41] VITALS: BP 166/81
[2020-09-26 13:17] LABS: MCH 29.8 pg (26.0-34.0); MCV 93.1 fL (80.0-100.0); RBC 3.01 mil/uL (4.50-6.00); RDW 20.4 % (10.5-14.5); WBC 16.1 thou/uL (4.0-11.0)
[2020-09-26 13:35] LABS: CREATININE 1.3 mg/dL (0.7-1.3); PHOSPHORUS 2.6 mg/dL (2.5-4.9); POTASSIUM 4.9 mmol/L (3.5-5.1)
[2020-09-26 15:41] VITALS: BP 142/89
[2020-09-26 16:28] LABS: BE(vivo) 4.6 mmol/L (-2 to +3); HCO3 28.3 mmol/L (22.0-26.0); PCO2 38.4 mmHg (35.0-45.0); pH 7.485 (7.360-7.450); sO2 91.3 % (92.0-98.0)
[2020-09-26 16:29] LABS: PO2 55.9 mmHg (80.0-100.0)
--- NOTE | 2020-09-26 19:28 | NUR ---
PATIENT CONT TO DECLINE IN STATUS TODAY. RESPIRATIONS ARE LABORED. PATEINT STATES HE HAS PAIN BUT WHEN ASKED WHERE HIS PAIN WAS HE STATES HE DOES NOT KNOW. BLOOD GAS SHOWED LOW O2. Dr. Magallanes notified and see new orders. will cont with plan of care.
[2020-09-26 20:03] VITALS: BP 148/72
[2020-09-26 21:51] LABS: TROPONIN-I <0.06 ng/mL (<0.06)
[2020-09-27 00:19] LABS: URINE BILIRUBIN NEGATIVE (Negative); URINE BLOOD 3+ (Negative); URINE CLARITY SL CLOUDY; URINE COLOR YELLOW; URINE GLUCOSE-RANDOM* NEGATIVE (Negative); URINE KETONES NEGATIVE (Negative); URINE NITRITE-REFLEX NEGATIVE (Negative); URINE PROTEIN (DIPSTICK) NEGATIVE (Negative); URINE SPECIFIC GRAVITY 1.015 (1.005-1.035); URINE UROBILINOGEN 0.2 E.U./dl (0.2-1.0)
[2020-09-27 00:23] LABS: URINE LEUKOCYTES-REFLEX 2+ (Negative)
[2020-09-27 00:40] LABS: BACTERIA-REFLEX None Seen /HPF (None Seen); CASTS None Seen /LPF (None Seen); CRYSTALS None Seen /LPF (None Seen); MUCUS 0-3 Light strn/LPF (None Seen); SQUAMOUS None Seen /LPF (0-3)
[2020-09-27 00:41] LABS: YEAST-REFLEX Present (None Seen)
[2020-09-27 04:03] VITALS: BP 173/72
[2020-09-27 07:22] LABS: ABSOLUTE NEUTROPHILS 12.5 thou/uL (1.4-8.2); BASOPHILS 0.5 % (0.0-2.0); HEMATOCRIT 26.1 % (42.0-52.0); HEMOGLOBIN 8.5 gm/dL (14.0-18.0); LYMPHOCYTES 1.7 % (24.0-44.0); MCH 30.4 pg (26.0-34.0); MCHC 32.7 g/dL (28.0-37.0); POLYS 96.8 % (36.0-66.0); RBC 2.81 mil/uL (4.50-6.00); RDW 20.2 % (10.5-14.5); WBC 12.9 thou/uL (4.0-11.0)
--- NOTE | 2020-09-27 07:22 | NUR ---
ASSUMED CARE AT 1900. PT PLACED ON BIPAP BY RT, PT BECAME VERY WORKED UP W/BIPAP, KEPT PULLING AT IT AND CALLING OUT; OBTAINED ORDERS FOR HALDOL AND ATIVAN THROUGHOUT THE NIGHT; ATIVAN HELPED BETTER, KEPT HIM FROM PULLING AT MASK. GAVE PO MEDS CRUSHED IN APPLESAUCE AND THEN GAVE PATRICIA THICK LIQUIDS; PT STRUGGLED TO SWALLOW, NOT CLOSING MOUTH AND HAD A WEAK SWALLOW REFLEX THEN HAD A VERY WET COUGH AND UNABLE TO COMPLETELY CLEAR THROAT. COUGHING CAUSED HIM TO HAVE A SMALL AMOUNT OF BLOOD FROM NOSE. IVF INFUSING WELL ZOSYN; ELEVATED BNP AND WET LUNG SOUNDS, GAVE ONE TIME DOSE 20 MG LASIX. UA SENT, SHOWED YEAST IN URINE; MEDIUM SOFT BM OVERNIGHT; PERIAREA EXCORIATED, BARRIER CREAM APPLIED. NO OTHER CONCERNS, SHIFT REPORT GIVEN AT 0700.
[2020-09-27 07:32] LABS: PLATELET COUNT 108 thou/uL (150-400)
[2020-09-27 07:35] LABS: FIBRINOGEN 135.3 mg/dL (210-360); INR 1.2; PROTIME 12.2 Seconds (9.3-11.4)
[2020-09-27 07:41] LABS: MAGNESIUM 2.4 mg/dL (1.8-2.4); PHOSPHORUS 3.3 mg/dL (2.5-4.9)
[2020-09-27 07:46] LABS: ALBUMIN 2.6 g/dL (3.4-5.0); CALCIUM 8.8 mg/dL (8.5-10.1); CREATININE 1.3 mg/dL (0.7-1.3); POTASSIUM 4.5 mmol/L (3.5-5.1); TOTAL BILIRUBIN 1.1 mg/dL (0.2-1.0); TOTAL PROTEIN 5.5 g/dL (6.4-8.2)
[2020-09-27 08:03] VITALS: BP 173/98
[2020-09-27 10:43] LABS: ANISOCYTOSIS 1+; OVALOCYTES FEW; PLATELET ESTIMATE SLIGHTLY DECREASED
[2020-09-27 10:45] LABS: HYPOCHROMASIA SLIGHT
[2020-09-27 11:57] VITALS: BP 150/79
[2020-09-27 15:11] VITALS: BP 148/79
--- NOTE | 2020-09-27 16:19 | NUR ---
PT CARE ASSUMED AT 0700, PT ALERT AND ORIENTED X3, LETHARGIC CONTINUES TO BE LAETHERGIC THE WHOLE, BUT AROUSABLE. DR BAUM AWARE. PT IS ON 12L OF OXYEGEN, SOB WITH EXERTION. PT HAS A CONEGSTED COUGH, NON PRODUCTIVE. LUNGS SOUNDS CRACKLY, COARSE AND RHONCHI. IV FLUIDS STOPPED PER DC BAUTISTA ORDERS. PT MUSE IN PLACE, PATENT AND SECURED. FALL PRECAUTIONS IN PLACE. WILL CONTINUE TO MONITOR.
[2020-09-27 19:55] VITALS: BP 147/67
[2020-09-28 00:03] VITALS: BP 160/69
[2020-09-28 03:14] VITALS: BP 172/78
--- NOTE | 2020-09-28 06:10 | NUR ---
ASSUMED CARE AT 1900. PT INCREASINGLY CONFUSED AND RESTLESS, PULLING GOWN OFF AND TREATING IT LIKE A SHEET, TAKING NC OFF CAUSING O2 SAT TO DROP TO 70'S, TUGGING AT MUSE, ETC. YELLS OFTEN BUT WORDS MOSTLY UNINTELLIGIBLE. GAVE IV ATIVAN x2. HAND IV WOULD NOT FLUSH, BUT WHEN IT WAS REMOVED, BLED FOR OVER FIVE MINUTES DESPITE HOLDING PRESSURE. NEW IV PLACED AT RIGHT AC, AND IT FLUSHED AND CARY BACK VERY WELL, BUT LEAKED QUITE A BIT OF BLOOD AT SITE, REQUIRING A FULL DRESSING CHANGE. LUNGS VERY COARSE, HAS A WEAK/WET COUGH; GAVE VERY LITTLE PO D/T POOR SWALLOWING ABILITY, USED MOUTH SWABS INSTEAD. NO OTHER CONCERNS.
[2020-09-28 07:22] VITALS: BP 178/68
[2020-09-28 11:07] VITALS: BP 152/62
--- NOTE | 2020-09-28 14:42 | NUR ---
SW reviewed chart and spoke with nursing and attending physician. Pt remains in Enhanced Isolation due to COVID-19. Pt is afebrile and 10-14L of O2. Pt is on IV lasix, IV steroids and IV abx. Per nursing, attending physician to discuss plan of care with pt's family. Pt is now a DNR. SW provided update to [facility] liaison. SW is following to assist as needed with discharge planning.
[2020-09-28 15:17] VITALS: BP 145/58
[2020-09-28 15:22] LABS: ALBUMIN 2.2 g/dL (3.4-5.0); CALCIUM 8.5 mg/dL (8.5-10.1); CREATININE 1.2 mg/dL (0.7-1.3); PHOSPHORUS 4.2 mg/dL (2.5-4.9); POTASSIUM 3.8 mmol/L (3.5-5.1)
--- NOTE | 2020-09-28 16:48 | NUR ---
PT CRAE ASSUMED AT 0700, PT OPEN EYES TO VERBAL RESPOND AT TIMES, DISORIENTED X4, UNABLE FOLLOW COMMANDS AN LETHARGIC. UNABLE O ASSESS PT PAIN. PT WAS PUT ON BIPAP THIS MORNING DUE TO PT TAKING NC OUT AND DESATING TO DOWN TO THE 80'S. HAS A MUSE IN PLACE, PATENT AND SECURED. ORAL CARE DONE EVERY 2 HOURS. PT NPO DUE TO AMS. REPOSITION BRANDON 2 HOURS. PT SON AND SIGNFICANT OTHER CALLED AND UPDATD ABOUT PT CARE. FALL PRECAUTIONS IN PLACE. PT IS NOT PRORESSING TOWARDS PLAN OF CARE.
--- NOTE | 2020-09-28 18:28 | NUR ---
1600 PT LAC PIV INFILTRATED, ARM ELEVATED ON A PILLOW. KELLY IV NURSE NOTIFIED 1800 MIDKINE PLACED IN THE RAC BY IV NURSE KELLY. IV ABX RESTARTED FACETIME SET UP FOR PT AND HIS SON
--- NOTE | 2020-09-28 19:01 | NUR ---
VASCULAR ACCESS CALLED TO RESTART PIV, PT HAS LIMITED VASCULAR ACCESS. PT'S LABS,MEDS,HX REVIEWED. PATRICIA BASILIC WAS WIDELY PATENT WITH USG 4FR POWER MIDLINE TRIMMED TO 12CM INSERTED TO 0CM WITH BRISK BR. PT TOLERATED WELL. ML RELEASED FOR IMMEDIATE USE PER PROTOCOL TO MEGA FOWLER
[2020-09-28 19:27] VITALS: BP 140/64
[2020-09-29 05:35] VITALS: BP 153/72
[2020-09-29 06:30] LABS: ALBUMIN 2.4 g/dL (3.4-5.0); CALCIUM 8.5 mg/dL (8.5-10.1); CREATININE 1.3 mg/dL (0.7-1.3); PHOSPHORUS 3.9 mg/dL (2.5-4.9); POTASSIUM 3.4 mmol/L (3.5-5.1)
--- NOTE | 2020-09-29 06:45 | NUR ---
PER CHART REVIEW, PT. CONTINUES TO PRESENT WITH DECLINING RESPIRATORY STATUS AND IS NOT APPROPRIATE FOR OT INTERVENTION AT THIS TIME. 3RD DAY IN A ROW OT HAS DEFERRED THERAPY. WILL PLACE PT. ON HOLD AND REQUESTING NEW ORDERS IF PT. STATUS IMPROVES.
[2020-09-29 07:26] VITALS: BP 157/76
--- NOTE | 2020-09-29 08:08 | NUR ---
ASSUMED CARE AT 1900. PT CONTINUES TO BE RESTLESS AND TUGS AT GOWN AND TELE LEADS; MAKES INCOHERENT NOISES DURING CARES, KEEPS HIS ARMS TIGHT TO CHEST AND PULLS BACK WHEN TRYING TO MOVE THEM. ON BIPAP ALL NIGHT; LUNGS VERY COARSE WITH SOME CRACKLES, VERY WEAK COUGH. NO STOOL OVERNIGHT. SCRATCHED AT OLD, SCABBED IV SITES CAUSING MORE BLEEDING, GAUZE AND TAPE APPLIED. HELD ALL PO MEDS D/T ASPIRATION AND DECREASED LOC. NO OTHER CONCERNS, SHIFT REPORT GIVEN 0700.
[2020-09-29 08:41] LABS: HEMOGLOBIN 6.9 gm/dL (14.0-18.0); WBC 6.4 thou/uL (4.0-11.0)
[2020-09-29 08:43] LABS: HEMATOCRIT 21.3 % (42.0-52.0); MCH 31.1 pg (26.0-34.0); MCHC 32.6 g/dL (28.0-37.0); MCV 95.1 fL (80.0-100.0); RBC 2.23 mil/uL (4.50-6.00); RDW 20.9 % (10.5-14.5)
[2020-09-29 11:48] VITALS: BP 155/69
--- NOTE | 2020-09-29 13:40 | NUR ---
CARE ASSUMED AT 0700, PT OPEN EYES TO VERBAL RESPONSE, INCOMPREHENIBLE WORDS, UNABLE TO FOLLOW COMMANDS. LETHARGIC MOST OF THE SHIFT. PT CONTINUES TO BE ON THE BIPAP, FIO2 OF 40% LIZABETH. UINABLE TO GIVEN PO MEDS DUE TO LETHARGY AND CHOKING ON FLUIDS, DR. FERGUSON. MUSE CATHETER IN PLACE. FALL PRECAUTIONS IN PLACE. PT IS NOT PROGRSSING TOWARDS CARE. WILL CONTINUE TO MONITOR. PT FAMILY CALLED AND UPDATED ABOUT CARE.
--- NOTE | 2020-09-29 15:19 | NUR ---
BRAD reviewed chart and spoke with nursing and attending physician. Enhanced Isolation precautions have been discontinued. Pt is afebrile and on bipap support. Pt is on IV abx and IV steroids. Palliative care physician to be consulted to discuss goals of care with pt's family. BRAD updated [facility] liaison. BRAD left voice message for pt's son, Juve. BRAD is following to assist as needed with discharge planning.
[2020-09-29 15:23] VITALS: BP 162/59
[2020-09-29 19:22] VITALS: BP 153/65
--- NOTE | 2020-09-29 19:54 | NUR ---
1919 CALLED PT SON, UMA CALLED TO GET CONSENT FOR BLOOD, HE DID NOT GIVE CONSENT FOR BLOOD. STATED "IF ITS NOT GOING TO HELP HIS DAD GET BETTER, HE DOES NOT WANT HIM TO HAVE IT" CARLOS ENRIQUE, RN WITNESS. TRIED TO CALLED CONTOUR BAND SAW OPERATOR VERTICAL STOCKROOM CLERK NO ANSWER. PT CONTOUR BAND SAW OPERATOR VERTICAL NURSE MADE AWARE.
--- NOTE | 2020-09-29 20:35 | NUR ---
PT PULLING OFF BIPAP, KICKING LEGS OOB, TAKING OFF GOWNS AND TELE BOX. PT GRABBING AT AIR. BIPAP REPLACED TWICE WITHIN FIRST HOUR OF SHIFT. PROVIDER PLUMBING ASSEMBLER INSTALLER NOTIFIED THROUGH [employer]. PRN IM FOR AGITATION PROVIDED. BED ALARM ON.
[2020-09-29 21:46] LABS: BE(vivo) 8.4 mmol/L (-2 to +3); HCO3 32.5 mmol/L (22.0-26.0); PCO2 43.2 mmHg (35.0-45.0); PO2 68.6 mmHg (80.0-100.0); pH 7.494 (7.360-7.450); sO2 94.9 % (92.0-98.0)
--- NOTE | 2020-09-30 00:25 | NUR ---
PT PULLING OFF BIPAP AND TELE BOX NOT ABLE TO BE VERBALLY REDIRECTED OR DISTRACTED. PROVIDER CALLED. SOFT WRIST RESTRAINTS APPLIED, PRN MEDICATION GIVEN. AIRWORTHINESS INSPECTOR AND PTS SON NOTIFIED.
--- NOTE | 2020-09-30 03:47 | NUR ---
PT CARE ASSUMED WITH PT IN BED AT 1900.PT LETHARGY,CONFUSE,RESTLESS AND PULLING ON BIPAP AND GOWN.CN NOTIFIED PROVIDER ,IM MEDICATION GIVEN AND PATIENT CONTINUE.CN OBTAINED ORDER FOR SOFT WRIST RESTRAINT AND FAMILY AND BANQUET SERVER NOTIFIED.PT IS NPO .PT HAS MUSE CATHETER AND IS ACCUCHECK ACHS.BLOOD WAS ORDERED BUT FAMILY REFUSED.VP MEDICAL ALPHONSE IMFORMED.PT IS TOTAL CARE.WILL CONTINUE TO MONITOR
[2020-09-30 03:59] VITALS: BP 153/70
[2020-09-30 07:06] VITALS: BP 164/59
--- NOTE | 2020-09-30 08:48 | NUR ---
Pt CONTINUES TO NOT BE ABLE TO PARTICIPATE WITH THERAPY. WILL PLACE ON HOLD AND AWAIT NEW ORDERS TO RESUME IF APPROPRIATE
[2020-09-30 09:28] LABS: WBC 2.9 thou/uL (4.0-11.0)
[2020-09-30 09:30] LABS: MCH 30.8 pg (26.0-34.0); MCHC 31.9 g/dL (28.0-37.0); MCV 96.6 fL (80.0-100.0); RBC 2.01 mil/uL (4.50-6.00); RDW 21.8 % (10.5-14.5)
[2020-09-30 09:42] LABS: CALCIUM 8.7 mg/dL (8.5-10.1); CREATININE 1.3 mg/dL (0.7-1.3)
[2020-09-30 09:51] LABS: HEMATOCRIT 19.4 % (42.0-52.0); HEMOGLOBIN 6.2 gm/dL (14.0-18.0)
[2020-09-30 10:38] LABS: ABSOLUTE NEUTROPHILS 2.7 thou/uL (1.4-8.2); ANISOCYTOSIS 2+; HYPOCHROMASIA 1+; PLATELET COUNT 60 thou/uL (150-400); PLATELET ESTIMATE DECREASED
[2020-09-30 11:09] VITALS: BP 149/87
--- NOTE | 2020-09-30 13:23 | NUR ---
Nutrition Recommendations: Would d/c D5W IVF and replace with Clinimix D5 + AA 4.25% @100mL/hr to provide pt with 816kcal, 102g protein and 2400mL of fluid x 24hr. Monitor hypernatremia and adjust fluid as indicated. Continue to replete electrolytes as indicated. Monitor for POC changes and if proceeding with comfort measures, would liberalize pt's diet and allow for POs as desired. RD to closely monitor.
--- NOTE | 2020-09-30 14:41 | NUR ---
BRAD reviewed chart and spoke with nursing and attending physican. Pt is afebrile and requiring bipap support. Pt is on IV abx and IV steroids. Palliative care physician consulted to discuss plan of care. Pt's son is currently out of town and will be back in town tomorrow. BRAD updated [facility] liaison. Enhanced Isolation precautions have been discontinued. BRAD is following to assist as needed with discharge planning.
[2020-09-30 15:16] VITALS: BP 152/89
--- NOTE | 2020-09-30 20:31 | NUR ---
Son, Juve agreed to have blood transfusion, consent signed with the witness, night nurse is aware. Night nurse voiced that she would contact the lab for the blood and do the transfusion.
[2020-09-30 22:06] VITALS: BP 143/87
--- NOTE | 2020-09-30 23:02 | NUR ---
Assumed pt care at 1900. Pt awake and A/OX2,restless and trying to pull himself of restraints and BIPAP sats 82% w/o it,reconnected and upto 99%. Denies pain on assessment. VSS. Pt transferred to @ 1201,report given to Valentina Gustafson RN,updated pt still needs a unit of blood on transfer. Pt able to facetime with family before transfer.
[2020-10-01] VITALS (10 sets, daily range): BP systolic 154–172; BP diastolic 35–83
[2020-10-01 08:19] LABS: CALCIUM 8.8 mg/dL (8.5-10.1); CREATININE 1.3 mg/dL (0.7-1.3)
[2020-10-01 08:20] LABS: POTASSIUM 2.9 mmol/L (3.5-5.1)
[2020-10-01 09:56] LABS: HEMATOCRIT 23.3 % (42.0-52.0); HEMOGLOBIN 7.4 gm/dL (14.0-18.0); MCH 31.1 pg (26.0-34.0); MCV 97.2 fL (80.0-100.0); RBC 2.4 mil/uL (4.50-6.00); RDW 22.2 % (10.5-14.5); WBC 6.2 thou/uL (4.0-11.0)
[2020-10-01 14:09] LABS: CALCIUM 9.1 mg/dL (8.5-10.1); CREATININE 1.2 mg/dL (0.7-1.3); POTASSIUM 3.2 mmol/L (3.5-5.1)
--- NOTE | 2020-10-01 18:45 | NUR ---
Son Juve notified that spiritual care did provide last rights yesterday as requested. Son traveling back to [facility] and will be here at 9am tomorrow to visit with the pt and the care team. Possible transition to comfort care. Emotional support provided.
--- NOTE | 2020-10-01 20:48 | NUR ---
PT CARE ASSUMED AT 0700. ASSESSMENTS CHARTED. MEDICATION CHARTED. PATRICIA MIDLINE. MUSE. BIPAP 10/17 35%. PT IN RESTRAINTS; WRIST; Q2 CHECKS. NOTIFIED AT 1400 THAT LEADS WERE OFF; DISCOVERED THAT MONITOR BOX WAS MISSING; ENTIRE BED WAS CHANGED; GOWN WAS CHANGED; FAILED TO FIND BOX. ENTIRE ROOM SEARCHED; WELL ALL DIRTY LINEN; FAILED TO FIND BOX. NURSING RN TRANSITIONAL CARE INFORMED.
[2020-10-02 04:37] VITALS: BP 163/63
--- NOTE | 2020-10-02 07:39 | NUR ---
ASSUMED CARE OF PATIENT AT 1900; ALERT & ORIENTED TO SELF; NONAMBULATORY WITH RESTRAINTS AND Q2 CHECKS; ON BIPAP WITH SATS ABOVE 96% THROUGHOUT THE NOC; NO C/O OF PAIN; AFIB/BRADYCARDIC ON THE MONITOR; MUSE WITH GOOD URINE OUTPUT AND NO BM ON NOC SHIFT; GENERALIZED EDEMA AND PITTING IN SOME AREAS; PLAN IS TO POSSIBLY SWITCH TO COMFORT CARE ONLY; PATIENT NOT PROGRESSING TOWARD DISCHARGE GOALS OR PLAN OF CARE AT THIS TIME; WILL CONTINUE TO MONITOR.
[2020-10-02 07:40] VITALS: BP 150/67; BP 740/67
[2020-10-02 10:56] LABS: HEMOGLOBIN 6.7 gm/dL (14.0-18.0); WBC 5.1 thou/uL (4.0-11.0)
[2020-10-02 10:58] LABS: ABSOLUTE NEUTROPHILS 4.8 thou/uL (1.4-8.2); BASOPHILS 0.1 % (0.0-2.0); EOSINOPHILS 0.1 % (0.0-3.0); HEMATOCRIT 20.4 % (42.0-52.0); LYMPHOCYTES 3.5 % (24.0-44.0); MCH 31.4 pg (26.0-34.0); MCHC 32.7 g/dL (28.0-37.0); MONOCYTES 2.7 % (1.0-8.0); PLATELET COUNT 70 thou/uL (150-400); POLYS 93.6 % (36.0-66.0); RBC 2.13 mil/uL (4.50-6.00); RDW 21.8 % (10.5-14.5)
[2020-10-02 11:05] LABS: ALBUMIN 2.3 g/dL (3.4-5.0); CALCIUM 8.7 mg/dL (8.5-10.1); CREATININE 1.3 mg/dL (0.7-1.3); TOTAL BILIRUBIN 1.7 mg/dL (0.2-1.0)
[2020-10-02 11:21] LABS: ANISOCYTOSIS 2+; OVALOCYTES FEW
[2020-10-02 12:10] VITALS: BP 153/68
--- NOTE | 2020-10-02 13:43 | NUR ---
PT SON CAME UP THIS MORNING, DISCUSSED WITH THIS RN AND DR PERAZA REGARDING COMFORT CARE. PT SON EXPRESSED THAT HE DID NOT THINK THAT IN HOME HOSPICE AT PT RESIDENCE WOULD WORK BECAUSE HE HAS A DISABLED SIGNIFICANT OTHER. HE STATES THAT HE WOULD LIKE TO TRY TO GET PT TO [facility] [place] IF POSSIBLE AND LAST RESORT HE COULD POTENTIALLY TAKE PT TO HIS RESIDENCE. SPOKE WITH CM, SHE STATED TO HAVE PHYSICIAN PUT IN REFERRAL TO FOR HOSPICE HOUSE EVAL, TO PRINT THAT ORDER AND FAX THAT, A FACESHEET, H&P AND MOST RECENT NOTE TO [facility]. SPOKE WITH DR RIGGINS, HE HAD JUST SPOKEN WITH PT SON, ORDERS FOR COMFORT CARE RECEVIED, THOUGH WE WILL KEEP BIPAP ON AND AVOID ATIVAN UNTIL PT SON CAN GET HERE FROM [place]. DR RIGGINS PUT IN ORDER FOR CONSULT AND ALL THE INFORMATION WAS FAXED TO [facility] NUMBER PROVIDED BY . DR ROSARIO CAME TO SEE PT AND SIGNED OUT OF HOSPITAL DNR, WILL HAVE SON SIGN WHEN HE RETURNS. [facility] [employer], DUARTE CALLED, ASKED ABOUT HOW LONG PT HAD COVID AND PHONE NUMBER FOR DUARTE THE NURSE TO CALL TO GET REPORT. SHE STATES THE NURSE WILL BE CALLING VERY SHORTLY.
[2020-10-02 21:00] VITALS: BP 173/74
[2020-10-03 07:26] VITALS: BP 122/63
[2020-10-03 15:49] VITALS: BP 141/59
--- NOTE | 2020-10-03 19:41 | NUR ---
Assumed pt care this am pt is on comfort care to be moved to hospice. Fc in place draining azra urine. Sons at the bed side. Pt is alert x 2, on 6L O2 viaq NC. Family did not want pt to move [place] [facility] [place] in location. Son informed us they fond a place that could take the pt which is [facility] [phone] contact is Stefani Grimm, informed showcase trimmer, was advised this will be taken care off tomorrow, son informed. Pt was repositioned every 2 to 3 hours. Pt was given honey thickend liquids as per instructons of Dr. Blood, no issues encountered. POC followed, kept pt comfortable. Endorsed to the night nurse, family informed there can only be one visitor as per instructions of the warehouse puller.
[2020-10-03 20:13] VITALS: BP 139/48
--- NOTE | 2020-10-04 04:31 | NUR ---
ALERT AND AWAKE TO SELF. VSS. NO S/S ACUTE DISTRESS NOTED OR REPORTED AT THIS TIME. WILL CONT TO MONITOR FOR ANY CHANGES IN CONDITION.
[2020-10-04] MEDS ORDERED: IPRAT-ALBUT 0.5-3 ML INH (09:38)
[2020-10-04 09:54] VITALS: BP 122/63
[2020-10-04] MEDS ORDERED: HALOPERIDOL2 MG/1 ML PO (10:13)
[2020-10-04] MEDS ORDERED: LORAZEPAM I2 MG/1 M2 SUBLING (10:13)
[2020-10-04] MEDS ORDERED: MSL20MG/ML SUBLING (10:13)
--- NOTE | 2020-10-04 12:07 | NUR ---
Assumed pt care this am, more alert and responsive, requesting for something to drink. Honey thick liquids are tolerated well. FC in place draining yellow urine. Q2 turns done, POC followed with no signs or verbaliations of distress, pt states he feel so much better today. For DC to hospice house, DNR form for transport obtained, called DPOA and 2 nurse witnessed the approval. FC and IV eagle in place and not to be removed as per hospice nurse. Report given to berta nurse, son at the bed side. Pt is now DC.
--- NOTE | 2020-10-04 12:09 | NUR ---
CM HAD VM FROM PT'S SON/DPCALLIE UMA THIS DAY. CM CALLED AND HE INDICATED THAT THEY WERE INTERESTED IN HAVING PT ASSESSED FOR POSSIBLE ADMISSION TO [facility] INSTEAD OF [facility]ICAL [facility]. CM CALLED AND SPOKE WITH BILLET WORKER ROD AT [facility] AND SHE STATED THAT THEY WOULD REVIEW REFERRAL AND LIKELY BE ABLE TO ACCEPT AT PT IS 20 DAYS OUT FROM INITIAL POSITIVE COVID TEST. CM HEARD FROM DANIEL WITH [facility] AND SHE INDICATED THAT THEY HAD A BED AT THE [facility] [place]. CM CALLED AND NOTIFIED UMA. HE INDICATED THAT THEY WERE INTERESTED IN ADMISSION TO THE [facility] [place]. CM FAXED ORDERS. NURSE CALLED REPORT. [facility] TRANSPORT ARRANGED FOR 12:00. PT AND SON ARE AWARE AND AGREEABLE. OUTSIDE HOSPITAL DNR FORM COMPLETED. NO OTHER CM INTERVENTION INDICATED. CASE CLOSED.
== END 2020-10-04 12:56 | disposition hospice, home (50) | DRG 177 ==
LOC: ER 05:41 → EROBS 08:33 → ICU 08:33 → 3W 08:33 → ICU 12:55 → 3W 09-21 23:10 → 2N 09-30 23:25 → 4W 10-03 06:43
PROVIDERS: Emergency Medicine; Hospitalist; Internal Medicine; Internal Medicine Cardiovascular Disease; Internal Medicine Pulmonary Disease; Nurse Practitioner Adult Health; Nurse Practitioner Family; Specialist; ADMIT Internal Medicine; ATTEND Internal Medicine
DX: U07.1 COVID-19 (principal); I50.33 Acute on chronic diastolic (congestive) heart failure; J96.21 Acute and chronic respiratory failure with hypoxia; J12.89 Other viral pneumonia; N17.9 Acute kidney failure, unspecified; I13.0 Hypertensive heart and chronic kidney disease with heart failure and stage 1 through stage 4 chronic kidney disease, or unspecified chronic kidney disease; E87.1 Hypo-osmolality and hyponatremia; I42.9 Cardiomyopathy, unspecified; I48.21 Permanent atrial fibrillation; D61.818 Other pancytopenia; E87.0 Hyperosmolality and hypernatremia; E11.51 Type 2 diabetes mellitus with diabetic peripheral angiopathy without gangrene; E78.5 Hyperlipidemia, unspecified; G47.33 Obstructive sleep apnea (adult) (pediatric); E11.22 Type 2 diabetes mellitus with diabetic chronic kidney disease; N18.9 Chronic kidney disease, unspecified; K80.20 Calculus of gallbladder without cholecystitis without obstruction; E87.5 Hyperkalemia; D69.6 Thrombocytopenia, unspecified; I08.1 Rheumatic disorders of both mitral and tricuspid valves; I27.20 Pulmonary hypertension, unspecified; D64.9 Anemia, unspecified; Z66 Do not resuscitate; Z51.5 Encounter for palliative care; R13.10 Dysphagia, unspecified; K21.9 Gastro-esophageal reflux disease without esophagitis; E11.40 Type 2 diabetes mellitus with diabetic neuropathy, unspecified; M10.9 Gout, unspecified; Z86.73 Personal history of transient ischemic attack (TIA), and cerebral infarction without residual deficits; Z95.1 Presence of aortocoronary bypass graft; Z79.899 Other long term (current) drug therapy
CPT/HCPCS: 10040; 10078; 10081; 10779; 10879; 27000